=== PATIENT | female | born 1990 | race Caucasian/White ===

== ENCOUNTER 2017-10-24 21:57 | Emergency (ER) | payer MEDICARE, SELFPAY ==
[2017-10-24 21:58] VITALS: BP 109/57; PULSE 61; RESP 18; TEMP 37.1; O2SAT 100; BMI 27.1
--- NOTE | 2017-10-24 22:20 | ED.DCSUM_ITS ---
- ER Visit Summary Date of Service: 10/24/17 Chief Complaint: Rash History of Present Illness: The patient is a [address] Preston. She reports that she suffered multiple dust mite bites to her legs bilaterally. 1 week ago she scratched open one on the medial side of her left ankle. She reports that she has redness that began 3-4 days ago. She states that she has an aching pain is 10 out of 10 with touching it and 8 out of 10 after ibuprofen. She denies any paresthesias distally. No fever, chills, or vomiting. Physical Examination: Vitals: Stable. Afebrile. General: Well-nourished and well-developed. Head: Normocephalic atraumatic. Neck: Supple, no lymphadenopathy. No JVD. Nontender. Cardiovascular: Regular rate and rhythm. No murmurs. Respiratory: No respiratory distress. Clear to auscultation bilaterally. Abdominal: Soft, nontender, nondistended, normal bowel sounds. No guarding, rebound, or peritoneal signs. Back: Nontender. Extremities: Multiple insect bites to the anterior surface of her thighs and legs bilaterally. She has no interdigital lesions. No burrows to suggest scabies. She does have a 3 cm erythematous/indurated area to the medial side of her left ankle just proximal to the medial malleolus. There is no fluctuance., no edema. Skin: Normal color, no rash. Neurologic: Alert and oriented ?3. Cranial nerves II through XII are intact. Normal strength and sensation. Psych: Normal affect. Emergency Department Course and Treatment: I discussed the patient treatment options. If at all possible she would like to avoid an I&D. I do not appreciate any fluctuance. She was given doxycycline, Zofran, and ibuprofen here. Treatment Plan: Patient will be discharged with doxycycline, Zofran, instructed to use ibuprofen for pain. She does understand that this is not improving in 2 days that she will require an I&D. She is instructed to use warm compresses. Follow-up with Dr. Penn in 3-5 days if not improving. Return to the emergency department for any worsening symptoms. Disposition: To home in improved and stable condition. Impression: 1. Early abscess left ankle. This note was generated with [employer] software. It may contain incorrect words, spelling, and punctuation that were not noted in review of the chart prior to signing ED Disposition - Plan for ED Patient: Disposition: Home or Assisted Living Chief Complaint: Abscess Instructions: ED Staph Infec Abx Tx Only Prescriptions: Ondansetron [Zofran Odt] 4 mg PO Q8H PRN PRN #10 tablet PRN Reason: Nausea Doxycycline Monohydrate 100 mg PO BID #20 capsule Mupirocin Calcium [Bactroban] 30 gm TP 4X/DAY #1 tube Referrals: Kal Penn DPM [STAFF PHYSICIAN] - 3-5 Days if not improving
[2017-10-24] MEDS: Doxycycline 100 MG CAPSULE PO (22:25)
[2017-10-24] MEDS: Ibuprofen 600 MG Tablet PO (22:25)
[2017-10-24] MEDS: Azithromycin 250 MG Tablet 500 MG PO (22:25)
[2017-10-24 22:27] VITALS: RESP 16
--- NOTE | 2017-10-24 22:27 | ED.RN ---
REVIEWED D/C INSTRUCTIONS, FOLLOW UP CARE, PRESCRIPTIONS, AND S/S THAT WOULD WARRANT A RETURN TO THE ED WITH PT. PT VERBALIZED AN UNDERSTANDING AND DENIES FURTHER QUESTIONS FOR THIS RN. PT SKIN P/W/D, RESP EVEN AND UNLABORED, PT A&O X 3, NO DISTRESS NOTED. PT AMBULATED OUT OF ED, GAIT STEADY.
== END 2017-10-24 22:28 | disposition home or self-care (01) ==
LOC: ED 22:19
PROVIDERS: Emergency Provider Emergency Medicine; Family Provider Internal Medicine; PCP Internal Medicine
DX: L02.416 Cutaneous abscess of left lower limb (principal); Z90.89 Acquired absence of other organs; F17.200 Nicotine dependence, unspecified, uncomplicated
CPT/HCPCS: 99283

== ENCOUNTER 2017-10-26 20:28 | Emergency (ER) | payer MEDICARE, SELFPAY ==
[2017-10-26 20:29] VITALS: BP 118/68; PULSE 79; RESP 16; TEMP 36.4; O2SAT 98; BMI 27.1
--- NOTE | 2017-10-26 22:26 | ED.DCSUM_ITS ---
- ER Visit Summary Date of Service: 10/26/17 Chief Complaint: Left leg infection History of Present Illness: The patient is a 26 F who presents with a left leg infection. She initially noticed a red raised area about 1 week ago. She was recently seen in the emergency department and started on doxycycline. She states it is continue to worsen despite oral antibiotics and that she is also having nausea and vomiting related to the antibiotics and is unable to tolerate them. She stated she was just here to get a prescription for different antibiotic. She denies fevers. She states that she attempted incision and drainage herself and did get some purulent drainage from the wound. Physical Examination: Afebrile vitals are normal Moist mucous membranes Heart regular rate and rhythm Lungs are clear Abdomen soft There is an ulcerative necrotic wound over the medial left ankle there is no active drainage at this time she has erythema and cellulitis of the dorsum of the foot extending senior care to the knee proximally there is also lymphangitic streaking this is warm to the touch I do not appreciate any fluctuance currently Test Results: Refused Emergency Department Course and Treatment: I explained that given the extent of the patient's cellulitis, failure of outpatient treatment, lymphangitic streaking I would recommend laboratory workup IV antibiotics and hospitalization. The patient refuses all of this. She refused even an IV or lab work or single dose of IV antibiotics here. I discussed with her risks and benefits including risks of developing sepsis organ failure or risk of . I discussed risks of worsening of infection or development of process such as osteomyelitis and need for surgery. The patient refuses any treatment except changing her current oral antibiotics. She understands she is welcome to return at any point for reevaluation and I encouraged her to do so if she does not improve. She will be switched to Keflex and Bactrim. The patient was discharged AGAINST MEDICAL ADVICE. Family member is at bedside and also tried to convince her to stay but the patient continues to refuse. Treatment Plan: [] Disposition: Left AGAINST MEDICAL ADVICE Impression: Left ankle wound Cellulitis This note was generated with [employer] dictation software. It may contain incorrect words, spelling, and punctuation that were not noted in review of the chart prior to signing ED Disposition - Plan for ED Patient: Chief Complaint: Wound Check Referrals: Contreras Preston MD [Primary Care Provider] -
--- NOTE | 2017-10-26 22:26 | ED.DEP ---
ED Disposition - Plan for ED Patient: Chief Complaint: Wound Check Instructions: ED Infec Skin Cellulitis Prescriptions: Clindamycin [Cleocin] 300 mg PO 4X/DAY #80 cap Referrals: Contreras Preston MD [Primary Care Provider] -
[2017-10-26] MEDS: Clindamycin HCl 150 MG Capsule 300 MG PO (22:42)
--- NOTE | 2017-10-26 22:45 | ED.RN ---
DISCHARGE INSTRUCTIONS GIVEN TO AND REVIEWED WITH PATIENT, PATIENT DENIES QUESTIONS OR CONCERNS AND VOICES UNDERSTANDING OF DISCHARGE INSTRUCTIONS. PT AMBULATES OUT OF ROOM WITHOUT DIFFICULTY.
== END 2017-10-26 22:46 | disposition home or self-care (01) ==
PROVIDERS: Emergency Provider Emergency Medicine; Family Provider Internal Medicine; PCP Internal Medicine
DX: L97.328 Non-pressure chronic ulcer of left ankle with other specified severity (principal); L03.116 Cellulitis of left lower limb; Z53.21 Procedure and treatment not carried out due to patient leaving prior to being seen by health care provider; F41.9 Anxiety disorder, unspecified; F32.9 Major depressive disorder, single episode, unspecified; Z90.89 Acquired absence of other organs; Z79.899 Other long term (current) drug therapy; Z72.0 Tobacco use
CPT/HCPCS: 99283

== ENCOUNTER 2017-11-25 16:29 | Emergency (ER) | payer MEDICARE, SELFPAY ==
[2017-11-25 16:30] VITALS: BP 149/107; PULSE 70; RESP 16; TEMP 36.7; O2SAT 94; BMI 26.2
--- NOTE | 2017-11-25 17:17 | ED.DCSUM_ITS ---
- ER Visit Summary Date of Service: 11/25/17 Chief Complaint: Right leg pain and swelling History of Present Illness: The patient is a 27 F who has had right leg pain and some redness in the calf. She states it started yesterday. She states that started in the calf area and she noted some redness near a varicose vein. It extended up into the medial thigh. She has not had a fever. No history of DVT or PE. She does take medications for depression and seizures Physical Examination: Vital signs reviewed. Right leg reveals tenderness medial calf and thigh. Mild erythema noted at these areas. No swelling. Pulses and sensation are intact distally. Test Results: Preliminary results of the ultrasound of the right lower extremity reveals clot in the gastroc aching in the right saphenous vein. Emergency Department Course and Treatment: Due to the multiplicity of the clots I will treat her with Xarelto. She does tell me that her dad gets blood clots frequently so this could be a genetic disorder. She will need to follow-up with Dr. Preston. I will attempt to contact him to let him know the plan of care. Treatment Plan: [] Disposition: Discharge Impression: Right lower extremity DVT This note was generated with [employer] dictation software. It may contain incorrect words, spelling, and punctuation that were not noted in review of the chart prior to signing ED Disposition - Plan for ED Patient: Chief Complaint: Lower Extremity Injury Referrals: Contreras Preston MD [Primary Care Provider] -
--- NOTE | 2017-11-25 17:30 | US_ITS ---
STUDY: VENOUS DOPPLER ULTRASOUND - BILATERAL LOWER EXTREMITIES REASON FOR EXAM: Female, 27 years old. Pain and swelling, particularly lower right thigh and knee.. TECHNIQUE: Ultrasound evaluation of the deep vein system to include giron-scale imaging and compression was performed. Giron-scale imaging and Doppler sonographic evaluation, including duplex spectral analysis and qualitative color flow sonography, was performed. COMPARISON: None. FINDINGS: RIGHT LEG Common Femoral Vein: Normal compression, spontaneity and augmentation. Normal color Doppler. Common Femoral Vein/Greater Saphenous Junction: Normal compression. Greater Saphenous Vein: There is internal echogenicity consistent with thrombus and incomplete compression at the lower thigh. Deep Femoral Vein: Not sampled. Femoral Proximal: Normal compression. Femoral Middle: Normal compression, spontaneity and augmentation. Normal color Doppler. Femoral Distal: Normal compression. Popliteal Vein: Normal compression, spontaneity and augmentation. Normal color Doppler. Tibioperoneal trunk: Normal compression. Peroneal Vein: Normal compression. Gastrocnemius Vein: There is internal echogenicity consistent with thrombus and incomplete compression. LEFT LEG Common Femoral Vein: Normal compression, spontaneity and augmentation. Normal color Doppler. Common Femoral Vein/Greater Saphenous Junction: Normal compression, spontaneity and augmentation. Normal color Doppler. Deep Femoral Vein: Not sampled. Femoral Proximal: Normal compression. Femoral Middle: Normal compression, spontaneity and augmentation. Normal color Doppler. Femoral Distal: Normal compression. Popliteal Vein: Normal compression, spontaneity and augmentation. Normal color Doppler. Posterior Tibial Vein: Grossly normal compression. Peroneal Vein: Normal compression. US/Venous Duplex Imag/Ayan Extrem IMPRESSION: 1. No demonstrated DVT of the bilateral lower extremities. 2. There is thrombus in the right greater saphenous vein at the lower thigh as well as in the superficial gastrocnemius vein of the right calf. Electronically Signed: Gabe Zabala MD at 18:41 EDT , Service support ,
[2017-11-25 18:25] VITALS: BP 121/82; PULSE 58; RESP 16; O2SAT 98
[2017-11-25] MEDS: Ibuprofen 600 MG Tablet PO (18:25)
--- NOTE | 2017-11-25 18:30 | ED.DEP ---
ED Disposition - Plan for ED Patient: Disposition: Home or Assisted Living Chief Complaint: Lower Extremity Injury Instructions: ED DVT Prescriptions: Rivaroxaban [Xarelto] 15 mg PO BID #42 tab Referrals: Contreras Preston MD [Primary Care Provider] -
[2017-11-25] MEDS: Rivaroxaban 15 MG Tablet PO (18:41)
== END 2017-11-25 18:45 | disposition home or self-care (01) ==
PROVIDERS: Emergency Provider Emergency Medicine; Family Provider Internal Medicine; PCP Internal Medicine
DX: I82.4Z1 Acute embolism and thrombosis of unspecified deep veins of right distal lower extremity (principal); F32.9 Major depressive disorder, single episode, unspecified; G40.909 Epilepsy, unspecified, not intractable, without status epilepticus; Z79.899 Other long term (current) drug therapy; Z72.0 Tobacco use
CPT/HCPCS: 93970; 99282

== ENCOUNTER 2017-11-26 00:02 | Emergency (ER) | payer MEDICARE, SELFPAY ==
[2017-11-26 00:03] VITALS: BP 97/64; PULSE 61; RESP 18; TEMP 36.6; O2SAT 96; BMI 27.5
--- NOTE | 2017-11-26 00:15 | EKG12_ITS ---
Test Reason : CP Blood Pressure : / mmHG Vent. Rate : 054 BPM Atrial Rate : 054 BPM P-R Int : 124 ms QRS Dur : 088 ms QT Int : 418 ms P-R-T Axes : 066 053 037 degrees QTc Int : 396 ms Sinus bradycardia Otherwise normal ECG Confirmed by KATIA WILL, GAUTAM ([id number]), newspaper photo editor DOMINIQUE BEAVER ([id number]) on 11/28/2017 2:02:36 PM Referred By: ELENITA Confirmed By:GAUTAM MONTALVO MD
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
--- NOTE | 2017-11-26 00:59 | RAD_ITS ---
STUDY: X-RAY CHEST REASON FOR EXAM: Female, 27 years old. Intermittent chest pain. Patient states that she was diagnosed with DVTs in the legs on November 25 TECHNIQUE: Frontal and lateral views of the chest. COMPARISON: Venous ultrasound 11/25/2017. (Ultrasound study demonstrates SVT of the right greater saphenous vein and gastrocnemius vein, but no DVT). FINDINGS: The lungs are clear and expanded. There is no demonstrated pleural abnormality. Normal size heart. Normal mediastinum and froilan. Normal visualized pulmonary arteries. Normal visualized aortic arch and descending thoracic aorta. Normal visualized thoracic spine. Normal visualized ribs, clavicles, and shoulders. There is no demonstrated abnormality of the visualized soft tissue structures of the upper abdomen. RAD/Chest PA and Lateral IMPRESSION: Normal x-ray examination of the chest. Electronically Signed: Segun Quezada MD at 1:32 EDT , Service support ,
--- NOTE | 2017-11-26 01:31 | ED.DEP ---
ED Disposition - Plan for ED Patient: Disposition: Home or Assisted Living Chief Complaint: Chest Pain Instructions: ED Chest Pain Atypical Unkn Cause Referrals: Contreras Preston MD [Primary Care Provider] - 1 Week Additional Instructions: Continue on your Xarelto. Call and follow-up with your primary care physician. Return if you are feeling a lot worse.
[2017-11-26 01:40] VITALS: BP 136/87; PULSE 86; RESP 16; O2SAT 98
== END 2017-11-26 01:41 | disposition home or self-care (01) ==
PROVIDERS: Emergency Provider Emergency Medicine; Family Provider Internal Medicine; PCP Internal Medicine
DX: R07.89 Other chest pain (principal); R00.1 Bradycardia, unspecified; I82.409 Acute embolism and thrombosis of unspecified deep veins of unspecified lower extremity; Z87.820 Personal history of traumatic brain injury; Z72.0 Tobacco use; G40.909 Epilepsy, unspecified, not intractable, without status epilepticus; Z79.899 Other long term (current) drug therapy; G83.89 Other specified paralytic syndromes
CPT/HCPCS: 71046; 93005; 99283; A4216

== ENCOUNTER 2017-12-19 20:11 | Emergency (ER) | payer MEDICARE, SELFPAY ==
[2017-12-19 20:12] VITALS: BP 132/107; PULSE 101; RESP 18; TEMP 37.2; O2SAT 99; BMI 28.3
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
--- NOTE | 2017-12-19 20:29 | ED.DEP ---
ED Disposition - Plan for ED Patient: Chief Complaint: General Illness Instructions: ED Fever Unconf Cause Referrals: Contreras Preston MD [Primary Care Provider] -
[2017-12-19 20:37] VITALS: RESP 18
== END 2017-12-19 20:38 | disposition home or self-care (01) ==
PROVIDERS: Emergency Provider Emergency Medicine; Family Provider Internal Medicine; PCP Internal Medicine
DX: R50.9 Fever, unspecified (principal); G83.24 Monoplegia of upper limb affecting left nondominant side
CPT/HCPCS: 99282

== ENCOUNTER 2018-02-04 19:15 | Emergency (ER) | payer MEDICARE, SELFPAY ==
[2018-02-04 19:16] VITALS: BP 98/65; PULSE 73; RESP 16; TEMP 36.6; O2SAT 99; BMI 24.5
--- NOTE | 2018-02-04 20:50 | ED.VISSUMM ---
- ER Visit Summary Date of Service: 02/04/18 Chief Complaint: Abscesses on left leg History of Present Illness: The patient is a 27 F who has multiple abscesses on the left leg. Started 2 days ago. One has drained. Another one has gotten bigger over the past day. She was seen at an urgent care and was told to come here for drainage. She does not want them to be drained at this time. She denies any fevers. She just wants to be on antibiotics that she had at the beginning of summer. Physical Examination: Signs are reviewed. Skin exam reveals multiple fluctuant abscesses on the left lower extremity. Each measure about 2 x 2 cm. They are erythematous. No current active drainage. Test Results: None performed Emergency Department Course and Treatment: Again, patient refuses incision and drainage. She wants to be placed on antibiotics. And september she was placed on Bactrim and this helped. I will put her on this again. She will follow-up with her PCP Treatment Plan: [] Disposition: Discharge Impression: Multiple left leg abscesses This note was generated with [employer] dictation software. It may contain incorrect words, spelling, and punctuation that were not noted in review of the chart prior to signing ED Disposition - Plan for ED Patient: Disposition: Home or Assisted Living Chief Complaint: Abscess Instructions: ED Infec Skin Cellulitis Prescriptions: Doxycycline Monohydrate 100 mg PO BID #20 cap Referrals: Contreras Preston MD [Primary Care Provider] -
[2018-02-04 20:57] VITALS: PULSE 88; RESP 16; O2SAT 98
[2018-02-04] MEDS: Doxycycline 100 MG CAPSULE PO (21:01)
== END 2018-02-04 21:02 | disposition home or self-care (01) ==
PROVIDERS: Emergency Provider Emergency Medicine; Family Provider Internal Medicine; PCP Internal Medicine
DX: L02.416 Cutaneous abscess of left lower limb (principal)
CPT/HCPCS: 99283

== ENCOUNTER 2018-02-23 21:53 | Emergency (ER) | payer MEDICARE, SELFPAY ==
[2018-02-23 21:55] VITALS: BP 120/67; PULSE 89; RESP 18; TEMP 37.6; O2SAT 99; BMI 27.8
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
[2018-02-23] MEDS: clonazePAM 1 MG Tablet PO ×2 (22:51→23:50)
--- NOTE | 2018-02-23 23:14 | ED.VISSUMM ---
- ER Visit Summary Date of Service: 02/23/18 Chief Complaint: Seizure History of Present Illness: The patient is a 27 F with history of seizure disorder. She had a seizure proxy 1 hour prior to arrival. She is currently 14 weeks . She is normally on Klonopin for her seizures as she states she is allergic to multiple different antiepileptics. She been out of her Klonopin for the past 3 days. She is an appointment 2 days with her doctor to get this refilled. On review of her medication list, it is noted that she is currently taking Xarelto for DVTs. When questioned patient states that she did not tell her MEDICAL SERVICE TECHNICIAN about this medication at her appointment. Physical Examination: Vital signs unremarkable. Patient sitting upright in bed no acute distress. Head neck examination normal. Heart is regular rate and rhythm. Lung sounds are clear. Abdomen is soft, gravid. Neuro exam reveals no focal deficits. Test Results: CT head is unremarkable. Emergency Department Course and Treatment: Nursing staff attempted to get heart tones but were unable. I did do a bedside ultrasound that reveals good cardiac motion. I spoke with Dr. Eugene as well, on-call for Dr. Ortez. Because the patient is a very through the first trimester which is the most important, she is stated patient could continue the Xarelto. She will review the case with Dr. Ortez tomorrow and the office will call the patient tomorrow with further instructions regarding her blood thinner. Patient be given a home pack of Klonopin which will supply her until her appointment in 2 days. Treatment Plan: [] Disposition: Discharge Impression: 1. Seizure with history of seizure disorder 2. Second trimester This note was generated with [employer] dictation software. It may contain incorrect words, spelling, and punctuation that were not noted in review of the chart prior to signing ED Disposition - Plan for ED Patient: Chief Complaint: Seizure Referrals: Contreras Preston MD [Primary Care Provider] -
--- NOTE | 2018-02-23 23:17 | ED.DCSUM_ITS ---
- ER Visit Summary Date of Service: 02/23/18 Chief Complaint: Seizure History of Present Illness: The patient is a 27 F with history of seizure disorder. She had a seizure proxy 1 hour prior to arrival. She is currently 14 weeks . She is normally on Klonopin for her seizures as she states she is allergic to multiple different antiepileptics. She been out of her Klonopin for the past 3 days. She is an appointment 2 days with her doctor to get this refilled. On review of her medication list, it is noted that she is currently taking Xarelto for DVTs. When questioned patient states that she did not tell her SOUP PERSON about this medication at her appointment. Physical Examination: Vital signs unremarkable. Patient sitting upright in bed no acute distress. Head neck examination normal. Heart is regular rate and rhythm. Lung sounds are clear. Abdomen is soft, gravid. Neuro exam reveals no focal deficits. Test Results: CT head is unremarkable. Emergency Department Course and Treatment: Nursing staff attempted to get heart tones but were unable. I did do a bedside ultrasound that reveals good cardiac motion. I spoke with Dr. Eugene as well, on-call for Dr. Ortez. Because the patient is a very through the first trimester which is the most important, she is stated patient could continue the Xarelto. She will review the case with Dr. Ortez tomorrow and the office will call the patient tomorrow with further instructions regarding her blood thinner. Patient be given a home pack of Klonopin which will supply her until her appointment in 2 days. Treatment Plan: [] Disposition: Discharge Impression: 1. Seizure with history of seizure disorder 2. Second trimester This note was generated with [employer] dictation software. It may contain incorrect words, spelling, and punctuation that were not noted in review of the chart prior to signing ED Disposition - Plan for ED Patient: Chief Complaint: Seizure Referrals: Cotnreras Preston MD [Primary Care Provider] -
--- NOTE | 2018-02-23 23:17 | ED.DEP ---
ED Disposition - Plan for ED Patient: Disposition: Home or Assisted Living Chief Complaint: Seizure Instructions: ED Seizure Recurrent Referrals: Kayla Ortez MD [STAFF PHYSICIAN] -
[2018-02-23 23:53] VITALS: BP 117/59; PULSE 85; RESP 15; O2SAT 99
== END 2018-02-23 23:55 | disposition home or self-care (01) ==
PROVIDERS: Emergency Provider Emergency Medicine; Family Provider Internal Medicine; PCP Internal Medicine
DX: O99.352 Diseases of the nervous system complicating pregnancy, second trimester (principal); G40.909 Epilepsy, unspecified, not intractable, without status epilepticus; O99.342 Other mental disorders complicating pregnancy, second trimester; F25.9 Schizoaffective disorder, unspecified; F41.9 Anxiety disorder, unspecified; F32.9 Major depressive disorder, single episode, unspecified; Z86.718 Personal history of other venous thrombosis and embolism; O99.332 Smoking (tobacco) complicating pregnancy, second trimester; F17.200 Nicotine dependence, unspecified, uncomplicated; Z3A.14 14 weeks gestation of pregnancy; Z79.01 Long term (current) use of anticoagulants; Z79.899 Other long term (current) drug therapy
CPT/HCPCS: 70450; 99283

== ENCOUNTER 2018-05-22 17:40 | Outpatient (CLI) | payer MEDICARE, SELFPAY ==
[2018-05-22 18:20] VITALS: BMI 28.3
[2018-05-22 20:08] LABS: Absolute Lymphocyte Count 1.91 X10^3/ul (0.83-4.51); Absolute Neutrophil Count 6.1 X10^3/uL (2.0-7.7); Basophil# 0.02 X10^3/uL; Basophil% 0.2 % (0-1); Eosinophil# 0.23 X10^3/uL; Eosinophils% 2.5 % (0-5); Hematocrit 30.1 % (37-47); Hemoglobin 10.3 g/dl (12.0-15.0); Lymphocyte # 1.91 X10^3/ul (4.0); Mean Corp Hgb Conc 34.2 g/gl (32-36); Mean Corpuscular Hgb 31.3 pg (27.0-32.0); Mean Corpuscular Volume 91.5 fL (81-99); Monocyte# 0.86 X10^3/uL; Monocyte% 9.5 % (0-10); Neutrophil # 6.06 X10^3/uL (2.7-7.7); Neutrophil % 66.7 % (47-70); Platelet Count 199 K/mm3 (150-450); RBC Distribution Width CV 14.6 % (11.6-14.6); RBC Distribution Width SD 48.4 fl (35.1-43.9); Red Blood Count 3.29 M/mm3 (4.2-5.4); White Blood Count 9.1 K/mm3 (4.4-11.0)
[2018-05-22 20:09] LABS: POSITIVE COUNT NO; POSITIVE DIFFERENTIAL NO; POSITIVE MORPHOLOGY NO
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
[2018-05-22 22:11] LABS: Rubella IgG 113.7 IU/mL
[2018-05-23 03:23] LABS: Rapid Plasmin Reagin (RPR) NONREACTIVE (NONREACTIVE)
[2018-05-23 11:54] LABS: Kleihauer-Betke Negative
[2018-05-25 13:41] LABS: HEPATITIS B SURFACE AG Negative (Negative); Hep C Antibodies <0.1 s/co ratio (0.0-0.9)
== END 2018-05-22 20:00 | disposition home or self-care (01) ==
LOC: WPOUT 17:57 → WP 17:57
PROVIDERS: Family Provider Internal Medicine; PCP Internal Medicine; Referring Provider Obstetrics & Gynecology; Visit Provider Obstetrics & Gynecology
DX: O9A.212 Injury, poisoning and certain other consequences of external causes complicating pregnancy, second trimester (principal); S50.00XA Contusion of unspecified elbow, initial encounter; S50.319A Abrasion of unspecified elbow, initial encounter; Z3A.25 25 weeks gestation of pregnancy; W10.9XXA Fall (on) (from) unspecified stairs and steps, initial encounter; Y93.9 Activity, unspecified; Y92.9 Unspecified place or not applicable; O09.92 Supervision of high risk pregnancy, unspecified, second trimester; O99.342 Other mental disorders complicating pregnancy, second trimester; F99 Mental disorder, not otherwise specified; Z87.820 Personal history of traumatic brain injury; Z86.718 Personal history of other venous thrombosis and embolism; Z87.898 Personal history of other specified conditions; Z79.899 Other long term (current) drug therapy
CPT/HCPCS: 36415; 59025; 59050; 85025; 85460; 86592; 86762; 86803; 86850; 86900; 87340; 99218; G0378

== ENCOUNTER → 2018-07-08 15:20 | Outpatient (CLI) | payer MEDICARE, SELFPAY ==
[2018-07-08 16:33] LABS: Hematocrit 27.9 % (37-47); Hemoglobin 9.2 g/dl (12.0-15.0); Mean Corpuscular Hgb 30.2 pg (27.0-32.0); Mean Corpuscular Volume 91.5 fL (81-99); Mean Platelet Vol. 10.2 fl (6.2-12.0); Platelet Count 197 K/mm3 (150-450); RBC Distribution Width CV 13.7 % (11.6-14.6); Red Blood Count 3.05 M/mm3 (4.2-5.4); White Blood Count 9.6 K/mm3 (4.4-11.0)
[2018-07-08 16:36] LABS: Scan Indicated on CBC? Y/N NO
[2018-07-08 16:59] LABS: Glucose Challenge Gest 1H 50g 79 mg/dL (70-140)
== END ==
PROVIDERS: Family Provider Internal Medicine; PCP Internal Medicine; Referring Provider Obstetrics & Gynecology; Visit Provider Obstetrics & Gynecology
DX: O34.219 Maternal care for unspecified type scar from previous cesarean delivery (principal); Z3A.00 Weeks of gestation of pregnancy not specified
CPT/HCPCS: 36415; 82950; 85027; 86850

== ENCOUNTER 2018-10-03 21:24 | Emergency (ER) | payer MEDICARE, SELFPAY ==
[2018-10-03 21:25] VITALS: BP 114/75; PULSE 95; RESP 16; TEMP 36.8; O2SAT 98; BMI 28.6
--- NOTE | 2018-10-03 22:38 | ED.DCSUM_ITS ---
- ER Visit Summary Date of Service: 10/03/18 Chief Complaint: Bilateral leg redness and swelling History of Present Illness: The patient is a 27 F who presents with abscesses on both legs. This is been present for about 5 days. She has a history of similar symptoms. She states normally she responds well to antibiotics. She has seen infectious disease for the symptoms without clear explanation of why she has had recurrent abscesses. She denies any systemic symptoms. No fevers chest pain shortness of breath nausea vomiting diarrhea. Physical Examination: Afebrile vitals are normal No distress Heart regular rate and rhythm No respiratory distress Patient has multiple early abscesses of the bilateral legs there are at least 4 lesions of the right leg about 1 cm in diameter with induration and overlying erythema these are not fluctuant There is a 2 cm open wound over the left anterior lower leg there is a 1 cm area of induration at the left popliteal fossa with about 4 to 5 cm of erythema consistent with cellulitis around this she has good short arc range of motion of the knees without pain Test Results: Not indicated Emergency Department Course and Treatment: Patient does not appear systemically ill and denies any systemic illness. She states she has responded well previously with a similar presentation just to oral antibiotics. She was given clindamycin here as well as prescription for the same but I stressed the importance of return for reevaluation for any new or worsening symptoms or if not improving within a couple of days of antibiotics. Patient agreeable to this plan was discharged home. Treatment Plan: [] Disposition: Discharge Impression: Multiple bilateral leg abscesses Cellulitis right leg This note was generated with [employer] dictation software. It may contain incorrect words, spelling, and punctuation that were not noted in review of the chart prior to signing ED Disposition - Plan for ED Patient: Referrals: Contreras Preston MD [Primary Care Provider] -
--- NOTE | 2018-10-03 22:38 | ED.DEP ---
ED Disposition - Plan for ED Patient: Instructions: ED Infec Skin Cellulitis, ED Staph Infec Abx Tx Only Prescriptions: Clindamycin [Cleocin] 300 mg PO TID #60 cap Referrals: Contreras Preston MD [Primary Care Provider] -
[2018-10-03] MEDS: Clindamycin HCl 150 MG Capsule 300 MG PO (23:08)
[2018-10-03 23:11] VITALS: BP 121/86; PULSE 88; O2SAT 95
== END 2018-10-03 23:18 | disposition home or self-care (01) ==
LOC: ED 22:41
PROVIDERS: Emergency Provider Emergency Medicine; Family Provider Internal Medicine; PCP Internal Medicine
DX: L02.416 Cutaneous abscess of left lower limb (principal); L02.415 Cutaneous abscess of right lower limb; L03.115 Cellulitis of right lower limb; S81.802A Unspecified open wound, left lower leg, initial encounter; X58.XXXA Exposure to other specified factors, initial encounter; Y93.9 Activity, unspecified; Y92.9 Unspecified place or not applicable; E66.9 Obesity, unspecified; F32.9 Major depressive disorder, single episode, unspecified; Z86.718 Personal history of other venous thrombosis and embolism; Z79.899 Other long term (current) drug therapy; Z72.0 Tobacco use
CPT/HCPCS: 99283

== ENCOUNTER 2018-10-05 20:11 | Emergency (ER) | payer MEDICARE, SELFPAY ==
[2018-10-05 20:15] VITALS: BP 109/65; PULSE 86; RESP 16; TEMP 36.4; O2SAT 96; BMI 28.5
--- NOTE | 2018-10-05 20:38 | ED.DCSUM_ITS ---
- ER Visit Summary Date of Service: 10/05/18 Chief Complaint: Bilateral leg abscesses History of Present Illness: The patient is a 27 F who tells me she has abscesses on the bilateral legs. She is here because she wants one area checked out. She was seen here 2 days ago and was given clindamycin. She denies any fevers. These areas have been draining. She has not been putting any creams on this area. Physical Examination: Vital signs reviewed. Bilateral legs reveal multiple ab scesses with cellulitic changes. She does have drainage coming from the left popliteal area. No areas need to be incised at this time. Test Results: None performed Emergency Department Course and Treatment: The patient's dressings were changed. No areas need to be drained at this time. They are already draining themselves. She was concerned about them eroding into her nerves and blood vessels. I do not see any evidence of this. I will give her Tylenol for pain. I will give her Bactroban cream that she can use. She will finish out her clindamycin and will follow up with her infectious disease doctor Treatment Plan: [] Disposition: Discharge Impression: Bilateral leg cellulitis, subsequent encounter This note was generated with [employer] dictation software. It may contain incorrect words, spelling, and punctuation that were not noted in review of the chart prior to signing ED Disposition - Plan for ED Patient: Referrals: Contreras Preston MD [Primary Care Provider] -
--- NOTE | 2018-10-05 20:38 | ED.DEP ---
ED Disposition - Plan for ED Patient: Disposition: Home or Assisted Living Instructions: Discharge Instructions for Cellulitis Prescriptions: Mupirocin [Bactroban] 1 applic TOPICAL TID #1 tube Referrals: Contreras Preston MD [Primary Care Provider] -
[2018-10-05 20:42] VITALS: RESP 18
[2018-10-05] MEDS: Acetaminophen 500 MG Tablet 1000 MG PO (20:47)
== END 2018-10-05 20:48 | disposition home or self-care (01) ==
PROVIDERS: Emergency Provider Emergency Medicine; Family Provider Internal Medicine; PCP Internal Medicine
DX: L03.115 Cellulitis of right lower limb (principal); L03.116 Cellulitis of left lower limb; L02.416 Cutaneous abscess of left lower limb; L02.415 Cutaneous abscess of right lower limb; Z86.718 Personal history of other venous thrombosis and embolism; Z79.01 Long term (current) use of anticoagulants; Z72.0 Tobacco use
CPT/HCPCS: 99283

== ENCOUNTER 2018-10-09 21:57 | Inpatient (IN) | payer MEDICARE, SELFPAY ==
[2018-10-09 21:58] VITALS: BP 141/90; PULSE 87; RESP 16; TEMP 36.2; O2SAT 100; BMI 27.9
--- NOTE | 2018-10-09 23:11 | ED.DCSUM_ITS ---
- ER Visit Summary Date of Service: 10/09/18 Chief Complaint: Bilateral leg redness and swelling and pain History of Present Illness: The patient is a 27 F who presents with bilateral leg redness and pain. She has a history of chronic recurrent abscesses and cellulitis. She has seen infectious disease for this previously. I recently saw her for similar presentation and started on clindamycin. Her symptoms have not improved and have been fact worsened. She had some areas that opened up and spontaneously drained. She was then seen again in the emergency department for the open wounds. She now has developed increasing redness and swelling. No systemic symptoms such as fevers or vomiting. She is not diabetic. Physical Examination: Afebrile vitals unremarkable Moist mucous membranes Heart regular rate and rhythm Lungs clear Patient has edema of the bilateral lower extremities right greater than left she does have bilateral lower extremity cellulitis, right greater than left, there are multiple superficial abscesses as well as open wounds over the anterior left leg and on the left leg in the popliteal fossa Test Results: CBC BMP notable for hemoglobin 10.0. Emergency Department Course and Treatment: Patient was treated with IV Ancef and vancomycin. This is the patient's third visit with progressing symptoms so I do feel she requires hospitalization for IV antibiotics. Treatment Plan: [] Disposition: Admit Impression: Bilateral leg cellulitis This note was generated with [employer] dictation software. It may contain incorrect words, spelling, and punctuation that were not noted in review of the chart prior to signing ED Disposition - Plan for ED Patient: Referrals: Contreras Preston MD [Primary Care Provider] -
[2018-10-09] MEDS: Cefazolin 1 GM/50 ML BAG IV (23:47)
[2018-10-09 23:56] LABS: Absolute Lymphocyte Count 1.74 X10^3/ul (0.83-4.51); Basophil# 0.01 X10^3/uL; Basophil% 0.1 % (0-1); Eosinophil# 0.16 X10^3/uL; Eosinophils% 2.4 % (0-5); Hematocrit 31.1 % (37-47); Lymphocyte # 1.74 X10^3/ul (4.0); Lymphocyte % 25.7 % (19-41); Mean Corp Hgb Conc 32.2 g/gl (32-36); Mean Corpuscular Hgb 27.2 pg (27.0-32.0); Mean Corpuscular Volume 84.7 fL (81-99); Mean Platelet Vol. 8.8 fl (6.2-12.0); Monocyte# 0.82 X10^3/uL; Monocyte% 12.1 % (0-10); Neutrophil # 4.02 X10^3/uL (2.7-7.7); Neutrophil % 59.6 % (47-70); Platelet Count 383 K/mm3 (150-450); RBC Distribution Width CV 15.6 % (11.6-14.6); RBC Distribution Width SD 46.7 fl (35.1-43.9); Red Blood Count 3.67 M/mm3 (4.2-5.4); White Blood Count 6.8 K/mm3 (4.4-11.0)
[2018-10-10 00:03] LABS: Anion Gap 6 (5-15); BUN 5 mg/dL (7-18); BUN/Creat Ratio 8.2 RATIO (10-20); Calcium,Total 8.4 mg/dL (8.5-10.1); Chloride 104 mmol/L (98-107); Creatinine, Serum 0.61 mg/dL (0.55-1.02); EST Glomerular Filtration Rate 126 mL/min (>60); Est Glom Filt Rate - Afr Amer 153 mL/min (>60); Estimated Creatinine Clearance 106.39 ml/min; Glucose 75 mg/dL (74-106); POSITIVE COUNT NO; POSITIVE DIFFERENTIAL NO; POSITIVE MORPHOLOGY NO; Potassium 3.7 mmol/L (3.5-5.1); Sodium Level 139 mmol/L (136-145)
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
[2018-10-10] MEDS: Vancomycin IV 1,000 MG/200 ML BAG 200 MG IV (00:42)
[2018-10-10] MEDS: Ibuprofen 200 MG Tablet 400 MG PO (00:45)
[2018-10-10 00:46] VITALS: BP 137/100; PULSE 88; RESP 14
[2018-10-10 01:24] VITALS: BMI 25.4
[2018-10-10 01:30] VITALS: BP 117/80; PULSE 71; RESP 20; TEMP 36.7; O2SAT 96
[2018-10-10 01:49] VITALS: BMI 25.5
[2018-10-10] MEDS: clonazePAM 1 MG Tablet PO ×3 (02:04→21:56)
[2018-10-10] MEDS: Acetaminophen 325 MG Tablet 650 MG PO ×4 (02:04→23:04)
[2018-10-10] MEDS: Furosemide 40 MG/4 ML Vial IV (02:04)
--- NOTE | 2018-10-10 03:31 | PCM.RX.CS ---
Consult Pharmacy has been consulted to manage selected antiobiotic: Vancomycin Type of Consult: New start Suspected Infection: Skin/Soft tissue Prior Doses of Antibiotics Received/Current Regimen: Medications Vancomycin HCl 750 mg/ Sodium (Chloride) 265 mls @ 250 mls/hr IV Q8H RAMONE Discontinued Medications Vancomycin HCl (Vancomycin) 1,000 mg in 200 mls @ 200 mls/hr IV X1 ONE Stop: 10/10/18 00:19 Last Admin: 10/10/18 00:42 Dose: 200 mls/hr Labs: Sodium 139 mmol/L (136-145) 10/09/18 23:40 Potassium 3.7 mmol/L (3.5-5.1) 10/09/18 23:40 Chloride 104 mmol/L (98-107) 10/09/18 23:40 Carbon Dioxide 29.0 mmol/L (21.0-32.0) 10/09/18 23:40 Anion Gap 6 (5-15) 10/09/18 23:40 BUN 5 mg/dL (7-18) L 10/09/18 23:40 Creatinine 0.61 mg/dL (0.55-1.02) 10/09/18 23:40 Est GFR (MDRD) Af Amer 153 mL/min (>60) 10/09/18 23:40 Est GFR (MDRD) Non-Af 126 mL/min (>60) 10/09/18 23:40 BUN/Creatinine Ratio 8.2 RATIO (10-20) L 10/09/18 23:40 Glucose 75 mg/dL (74-106) 10/09/18 23:40 Weight used for dosin.1 kg Estimated Creatinine Clearance: 106 Goal Trough: 15-20 mcg/mL Pharmacy Plan for Drug Dosing: Pharmacy Service will continue to monitor and adjust dosing as required. Follow-Up Labs: Trough Vancomycin Labs to be done on [date and time ordered]: 10/11/18 @0800
[2018-10-10] MEDS: Cefazolin 1 GM/50 ML BAG IV ×3 (05:54→21:56)
[2018-10-10] MEDS: Ibuprofen 400 MG Tablet PO ×3 (06:00→21:58)
[2018-10-10 07:30] VITALS: BP 116/70; PULSE 70; RESP 18; TEMP 36.6; O2SAT 98
[2018-10-10 08:00] VITALS: RESP 18
[2018-10-10] MEDS: Citalopram 20 MG Tablet 60 MG PO (09:07)
[2018-10-10] MEDS: Enoxaparin 40 MG/0.4 ML Syringe SC (09:08)
[2018-10-10] MEDS: Pantoprazole Sodium 20 MG Tablet PO (10:56)
--- NOTE | 2018-10-10 11:31 | CASEMGMT ---
RN CM Assessment Presentation: Multiple abscesses and cellulitis of bilateral legs. Intro role of CM and purpose of RN CM assessment to patient in room. Pt is awake, alert and able to participate in assessment.. Demographics, PCP and Pharmacy verified. Pt does not elaborate with answers, tends to answer yes no and did not engage in eye contact. PCP: Dr. Preston Preferred Pharmacy: [facility] Insurance: [employer] [facility] Prescription Benefit: yes LNOK: Mother, Ioana Cesar Living Arrangements: Lives independently with significant other, Martin abbott. States completes ADL's on own. Transportation: [facility] friend/family drives or can use [facility] transportation. States she has difficulty with scheduling this. RN CM asked if she would like to speak with regarding transportation or concerns on dc and pt declined. DME: none HHC: none Patient DC goals: Home DC PLAN: Home. Anuja BAIRD RN ACM
--- NOTE | 2018-10-10 13:23 | CASEMGMT ---
Social Work Note SW reviewed H+P, pt has history of TBI and Schizoaffective disorder. SW met with pt, introduced self and role at [facility]. Pt is alert and orientated x4. Pt states that she lives with her significant other and that it is a good relationship and she feels safe at home. Pt denied any Substance Abuse Hx. Pt states that she has a history of depression. Pt denied any current suicidal/homicidal thoughts/plans/ideations. Pt states that she received counseling in the past but denied any current counseling. Pt denied any counseling resources and denied any additional needs or concerns at this time. Irma Farley DIABETES EDUCATOR, HEAD OF ACQUISITIONS
[2018-10-10 15:47] VITALS: BP 114/76; PULSE 73; RESP 18; TEMP 36.3; O2SAT 98
--- NOTE | 2018-10-10 19:09 | PCM.HOSP.N ---
Hospitalist Note Was seen and examined today briefly, we were unable to obtain any labs despite multiple attempts, I feel that her vancomycin should be stopped-it would be difficult to obtain peak and trough levels on this patient. I will maintain the patient on Ancef for now. Wound culture results are pending.
[2018-10-10 20:24] VITALS: BP 127/83; PULSE 75; RESP 14; TEMP 36.7; O2SAT 98
--- NOTE | 2018-10-11 01:01 | NURSING ---
PT CONTINUES TO RATE PAIN 7-10 ON SCALE 0-10 FOR BLE. PT NOTED TO BE AMBULATING IN ROOM, WATCHING TV, TALKING ON CELL PHONE, AND WATCHING VIDEOS ON PHONE WITHOUT DISTRESS. PT INSTRUCTED TO ELEVATE BLE WHILE IN BED. PT VOICED UNDERSTANDING. WILL CONTINUE TO MONITOR.
[2018-10-11] MEDS: Ibuprofen 400 MG Tablet PO ×3 (02:13→21:56)
[2018-10-11 02:15] VITALS: BP 134/85; PULSE 57; RESP 16; TEMP 36.7; O2SAT 98
[2018-10-11] MEDS: Cefazolin 1 GM/50 ML BAG IV ×3 (05:39→21:57)
[2018-10-11] MEDS: Acetaminophen 325 MG Tablet 650 MG PO (07:23)
--- NOTE | 2018-10-11 08:49 | PCM.PROGNOTE ---
Patient Problems: Active and Suspected Problems Abscess (Acute) Cellulitis (Acute) Subjective: Chief complaint: Follow-up after admission for bilateral lower extremity cellulitis, infected wounds/probable superficial skin abscesses. Patient seen and examined. No acute events overnight. She is still complaining of bilateral leg swelling, minimally improved. Erythema of the right leg improved. She has multiple wounds, one on the anterior aspect of the right leg measuring about 1 x 1 cm with pus draining, another wound on the back of the right knee measuring about 1 x 1 cm, minimal drainage. There is another wound on the anterior aspect of the left leg with minimal drainage and other wound on the back of the left leg with pulse as well. She denies fever or chills. Her vital signs are stable. - Physical Exam General: Alert, Oriented x3, Cooperative, No apparent distress HEENT: Atraumatic, PERRLA, EOMI, Normocephalic Oral: Moist Mucosa, No Gingival or Mucosal Lesions/ Ulcerations Neck: Supple, No JVD, Negative Carotid Bruits, Trachea Midline, Thyroid Normal Size and Texture Lungs: Clear to auscultation, Normal air movement, No rhonchi, No wheeze, No rales Cardiovascular: Regular rate, Regular Rhythm, Normal S1, Normal S2, PMI Normal Abdomen: Bowel Sounds Present, Soft, Non Tender, Non-Distended, No Hepato-splenomegaly Extremities: No clubbing, No cyanosis, No edema Skin: No rashes, Ulcer/ Wound Musculoskeletal: - - Right leg: Small wound measuring about 1 x 1 cm on the anterior aspect of the upper one third of the right leg with pus drainage surrounded by mild erythema. Erythema of the right leg, improved. Small wounds on the back of the right knee with minimal drainage. Left leg: Small wounds on the anterior aspect of the left leg with minimal drainage, another open wound on the back of the left knee with pus. Lymphatic: No Cervical, Supraclavicular, or Inguinal Adenopathy Neurological: Cranial nerves II-XII grossly intact, Neuro grossly intact Psych/Mental Status: Normal Affect, Appropriate, Alert and oriented to time, place, person, mood and affect Vital Signs Temp Pulse Resp BP Pulse Ox 98.0 F 57 L 16 134/85 H 98 10/11/18 02:15 10/11/18 02:15 10/11/18 02:15 10/11/18 02:15 10/11/18 02:15 Oxygen Delivery Method Room Air Weight: 134 lb 11.239 oz Body Mass Index (BMI) 25.4 Finger Stick Blood Glucose 86 Intake and Output for Last 24 Hours 10/09/18 10/10/18 10/11/18 23:59 23:59 23:59 Intake Total 2411 / 2411 1223 / 1223 Output Total 3050 / 3050 Balance -639 / -639 1223 / 1223 Microbiology Past 72 Hours 10/10/18 00:00 Gram Stain - Final Wound - Leg, Left Medical Necessity - Tobacco Use Smoking Status: Current every day smoker Tobacco Use: Cigarettes Assessment/Plan All Active Problems Abscess (Acute) Cellulitis (Acute) This is a 27 years old female patient presented to the medicine because of bilateral leg redness and swelling mainly on the right leg as well as multiple wounds and she was found to have acute cellulitis of bilateral legs with multiple infected wounds and small skin abscesses on both legs. #1 acute bilateral lower extremity cellulitis/infected wound/small skin abscesses: She is on IV cefazolin. Vital signs are stable, afebrile. No leukocytosis. Wound cultures pending. Erythema and swelling of both legs is improving but still having pulse coming out from the small wounds on the anterior right leg and left posterior knee. Plan: Continue IV cefazolin, MRSA wound screen, repeat wound culture, start Bactrim, general surgery consult. #2 seizure disorder: She is on Klonopin for seizure according to the patient. Stable. #3 depression: Continue Celexa. #4 history of DVTs: Continue daily subcu Lovenox. #5 DVT prophylaxis: She is on subcu Lovenox. This note was generated with [employer] dictation software. It may contain incorrect words, spelling, and punctuation that were not noted in checking the note before signing. Code Visit Inpatient E&M: 69617 Subs Hosp L2
[2018-10-11 09:00] VITALS: PULSE 70
[2018-10-11 09:33] VITALS: BP 118/64; PULSE 76; RESP 18; TEMP 36.9; O2SAT 95
[2018-10-11] MEDS: Enoxaparin 40 MG/0.4 ML Syringe SC (09:38)
[2018-10-11] MEDS: clonazePAM 1 MG Tablet PO (09:40)
[2018-10-11] MEDS: Pantoprazole Sodium 20 MG Tablet PO (09:40)
[2018-10-11] MEDS: Citalopram 20 MG Tablet 60 MG PO (09:40)
[2018-10-11 09:44] LABS: Anion Gap 8 (5-15); Anisocytosis 1+; BUN 12 mg/dL (7-18); BUN/Creat Ratio 23.3 RATIO (10-20); Calcium,Total 8.4 mg/dL (8.5-10.1); Chloride 106 mmol/L (98-107); Creatinine, Serum 0.52 mg/dL (0.55-1.02); EST Glomerular Filtration Rate 153 mL/min (>60); Est Glom Filt Rate - Afr Amer 186 mL/min (>60); Glucose 85 mg/dL (74-106); Platelet Estimate ADEQUATE (ADEQ); Potassium 4.4 mmol/L (3.5-5.1); Sodium Level 142 mmol/L (136-145)
[2018-10-11 09:45] LABS: Absolute Lymphocyte Count 1.51 X10^3/ul (0.83-4.51); Absolute Neutrophil Count 1.8 X10^3/uL (2.0-7.7); Basophil# 0.02 X10^3/uL; Basophil% 0.5 % (0-1); Eosinophil# 0.12 X10^3/uL; Hematocrit 29.7 % (37-47); Hemoglobin 9.7 g/dl (12.0-15.0); Lymphocyte # 1.51 X10^3/ul (4.0); Lymphocyte % 37.6 % (19-41); Mean Corp Hgb Conc 32.7 g/gl (32-36); Mean Corpuscular Hgb 27.2 pg (27.0-32.0); Mean Corpuscular Volume 83.4 fL (81-99); Monocyte# 0.52 X10^3/uL; Monocyte% 12.9 % (0-10); Neutrophil # 1.83 X10^3/uL (2.7-7.7); Neutrophil % 45.5 % (47-70); POSITIVE COUNT NO; POSITIVE DIFFERENTIAL NO; POSITIVE MORPHOLOGY YES; Platelet Morphology CLUMPED; RBC Distribution Width CV 15.8 % (11.6-14.6); RBC Distribution Width SD 48.1 fl (35.1-43.9); Red Blood Count 3.56 M/mm3 (4.2-5.4)
[2018-10-11 09:46] LABS: Differential Indicated SCAN CRITERIA MET
[2018-10-11 10:54] LABS: M R Staph aureus DNA By PCR Negative (Negative); Probe Check PASS; Specimen Processing Control PASS; Staph aureus DNA By PCR NEGATIVE (Negative)
[2018-10-11] MEDS: Smz/Tmp Ds Tablet 1 TABLET PO ×2 (12:06→16:52)
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
[2018-10-11 14:21] VITALS: BP 124/76; PULSE 79; RESP 16; TEMP 36.8; O2SAT 93
[2018-10-11 17:52] LABS: Amphetamine Urine VISTA NEGATIVE (<1000 ng/mL); Barbiturate Urine VISTA NEGATIVE (< 200 ng/mL); Benzodiazepine Urine VISTA NEGATIVE (< 200 ng/mL); Cocaine Urine VISTA NEGATIVE (< 300 ng/mL); Ecstacy Urine VISTA NEGATIVE (< 500 ng/mL); Methadone Urine VISTA NEGATIVE (< 300 ng/mL); PCP Urine VISTA NEGATIVE (< 25 ng/mL); THC Urine VISTA NEGATIVE (< 50 ng/mL); Vista UDS pH Range 7
[2018-10-11 20:22] VITALS: BP 137/79; PULSE 68; RESP 16; TEMP 36.8; O2SAT 96
[2018-10-12] MEDS: clonazePAM 1 MG Tablet PO ×2 (00:14→09:19)
[2018-10-12 02:25] VITALS: BP 124/88; PULSE 82; RESP 16; TEMP 36.6; O2SAT 97
[2018-10-12] MEDS: Cefazolin 1 GM/50 ML BAG IV (05:13)
[2018-10-12 08:41] VITALS: BP 131/83; PULSE 62; RESP 16; TEMP 36.5; O2SAT 97
--- NOTE | 2018-10-12 08:56 | DCINST_ITS ---
- Discharge Diagnoses Current Active Problems: Current Active and Chronic Problems Abscess (Acute) Cellulitis (Acute) You will use the following diet at home:: Regular Your food should be the consistency of: Regular Discharge Activity: Return to Normal Activity Weight Bearing Status: Full weight bearing Call your doctor if you observe: Fever of 101 or Higher, Shortness of breath, Dizziness, Fainting spells, Chest pain, Increased palpitations (irregular heartbeat), Uncontrolled pain Additional Instructions: Apply dry sterile dressing to the wounds of both legs. Allergies/Adverse Reactions: Allergies ampicillin sodium [From Unasyn] Allergy (Verified 10/09/18 22:01) Swelling egg Allergy (Verified 10/09/18 22:01) Unknown Penicillins Allergy (Verified 10/09/18 22:01) Swelling sulbactam sodium [From Unasyn] Allergy (Verified 10/09/18 22:01) Swelling Medications to take at Discharge Citalopram [Celexa] 60 mg PO QHS 03/20/16 Clonazepam [Klonopin] 1 mg PO BID 06/11/17 Cyclobenzaprine HCl 10 mg PO TID PRN PRN 11/25/17 Enoxaparin Sodium [Lovenox] 40 mg SQ DAILY 05/22/18 Omeprazole 20 mg PO QHS 10/03/18 Ondansetron [Zofran Odt] 4 mg PO Q8H PRN PRN 10/03/18 proMETHazine tablet [Phenergan tablet] 25 mg PO Q8H PRN PRN 10/03/18 Mupirocin [Bactroban] 1 applic TOPICAL TID 10/10/18 Cephalexin [Keflex] 500 mg PO Q12 #10 capsule 10/12/18 Smz/Tmp Ds [Bactrim Ds] 1 tablet PO BIDCM #10 tablet 10/12/18 The following prescriptions were given: Cephalexin [Keflex] 500 mg PO Q12 #10 capsule Smz/Tmp Ds [Bactrim Ds] 1 tablet PO BIDCM #10 tablet Primary Care Physician: Contreras Preston MD [Primary Care Provider] - Please follow up with your Primary Care Physician in: 1 WEEK. Test Results: Test results from this visit will be discussed in further detail at your follow- up appointment, if applicable. Please Follow Up With: Pipo Malave MD When: 1 WEEK.
[2018-10-12] MEDS: Smz/Tmp Ds Tablet 1 TABLET PO (09:12)
[2018-10-12] MEDS: Pantoprazole Sodium 20 MG Tablet PO (09:14)
[2018-10-12] MEDS: Enoxaparin 40 MG/0.4 ML Syringe SC (09:14)
[2018-10-12] MEDS: Citalopram 20 MG Tablet 60 MG PO (09:14)
--- NOTE | 2018-10-12 13:47 | DS.PCM_ITS ---
Discharge Date and Diagnosis Date of Admission: 10/10/18 Date of Discharge: 10/12/18 - Primary Discharge Diagnosis #1 acute bilateral lower extremity cellulitis. #2 multiple bilateral lower leg infected wounds/small skin abscesses. - Secondary Discharge Diagnosis Chronic Problems Schizoaffective disorder (Chronic) TBI (traumatic brain injury) (Chronic) Hospital Course and Treatment Dr. Prado, general surgery, Operations: None Procedures: None Summary of Care Provided: Patient seen and examined on today's discharge and appeared to be stable to be discharged home. She was seen by general surgery and recommended antibiotics, no need for urgent surgical procedures at this time and recommended follow-up as outpatient. Her vital signs are stable, afebrile. The patient is a 27 year old F presented to the medicine because of redness, swelling and pain of both legs and she was found to have multiple small skin wounds with pus drainage. Her routine blood work was remarkable for chronic anemia, otherwise normal. There is no leukocytosis, no evidence of sepsis or severe sepsis. She was treated with IV cefazolin and oral Bactrim. MRSA wound screen by PCR was negative. Staph aureus PCR was negative as well. Urine drug screen was negative. Patient had open wound with pus drainage on the anterior aspect of the right leg, another wound of about 1 x 1 cm on the back of the right knee with minimal drainage. Also, she has underwent on the anterior aspect of the left leg with minimal drainage and other smaller wound measuring about 1 x 1 cm with minimal pus drainage on the posterior aspect of the left knee. General surgery consulted and recommended to continue antibiotics without need for urgent incision and drainage. Patient remained afebrile throughout admission and her white blood cell count remained normal. Upon admission, wound culture done and showed no growth, final is pending. Repeat wound culture done and revealed gram-positive organism and it was pending at the time of discharge. Patient discharged home in a stable medical condition, discharged on Keflex twice daily and Bactrim DS twice daily for 5 days to complete a total of 7 days of treatment, plan to follow-up with general surgery in 1 week, recommended follow-up with PCP in 1 week as well. - Physical Exam General: Alert, Oriented x3, Cooperative, No apparent distress HEENT: Atraumatic, PERRLA, EOMI, Normocephalic Oral: Moist Mucosa, No Gingival or Mucosal Lesions/ Ulcerations Neck: Supple, No JVD, Negative Carotid Bruits, Trachea Midline, Thyroid Normal Size and Texture Lungs: Clear to auscultation, Normal air movement, No rhonchi, No wheeze, No rales Cardiovascular: Regular rate, Regular Rhythm, Normal S1, Normal S2, PMI Normal Abdomen: Bowel Sounds Present, Soft, Non Tender, Non-Distended, No Hepato- splenomegaly Extremities: No clubbing, No cyanosis, No edema Skin: No rashes, Ulcer/ Wound Lymphatic: No Cervical, Supraclavicular, or Inguinal Adenopathy Neurological: Cranial nerves II-XII grossly intact, Neuro grossly intact Psych/Mental Status: Normal Affect, Appropriate Vital Signs Temp Pulse Resp BP Pulse Ox 97.7 F L 62 16 131/83 H 97 10/12/18 08:41 10/12/18 08:41 10/12/18 08:41 10/12/18 08:41 10/12/18 08:41 Oxygen Delivery Method Room Air Weight: 134 lb 11.239 oz Body Mass Index (BMI) 25.4 Finger Stick Blood Glucose 86 Intake and Output for Last 24 Hours 10/10/18 10/11/18 10/12/18 23:59 23:59 23:59 Intake Total 2411 / 2411 1223 / 1223 766 / 766 Output Total 3050 / 3050 900 / 900 400 / 400 Balance -639 / -639 323 / 323 366 / 366 Microbiology Past 72 Hours 10/11/18 08:30 Gram Stain - Final Wound - Aerobic & Anaerobic Swabs Wound Culture - Preliminary Gram positive organism 10/10/18 00:00 Gram Stain - Final Wound - Leg, Left Wound Culture - Preliminary No growth-Final to follow Laboratory Tests Past 24 Hrs 10/11/18 17:00 Urine Opiates Screen NEGATIVE Urine Methadone Screen NEGATIVE Ur Barbiturates Screen NEGATIVE Ur Phencyclidine Scrn NEGATIVE Ur Amphetamines Screen NEGATIVE U Methamphetamin-MDMA NEGATIVE U Benzodiazepines Scrn NEGATIVE Urine Cocaine Screen NEGATIVE U Cannabinoids Screen NEGATIVE Ur Drug Screen Comment Discharge Activity: Return to Normal Activity Weight Bearing Status: Full weight bearing Call your doctor if you observe: Fever of 101 or Higher, Shortness of breath, Dizziness, Fainting spells, Chest pain, Increased palpitations (irregular heartbeat), Uncontrolled pain Home Medications: Medications to take at Discharge Citalopram [Celexa] 60 mg PO QHS 03/20/16 Clonazepam [Klonopin] 1 mg PO BID 06/11/17 Cyclobenzaprine HCl 10 mg PO TID PRN PRN 11/25/17 Enoxaparin Sodium [Lovenox] 40 mg SQ DAILY 05/22/18 Omeprazole 20 mg PO QHS 10/03/18 Ondansetron [Zofran Odt] 4 mg PO Q8H PRN PRN 10/03/18 proMETHazine tablet [Phenergan tablet] 25 mg PO Q8H PRN PRN 10/03/18 Mupirocin [Bactroban] 1 applic TOPICAL TID 10/10/18 Cephalexin [Keflex] 500 mg PO Q12 #10 capsule 10/12/18 Smz/Tmp Ds [Bactrim Ds] 1 tablet PO BIDCM #10 tablet 10/12/18 Following Prescrptions Were Given to Patient: Cephalexin [Keflex] 500 mg PO Q12 #10 capsule Smz/Tmp Ds [Bactrim Ds] 1 tablet PO BIDCM #10 tablet Primary Care Physician: Contreras Preston MD [Primary Care Provider] - Please follow up with your Primary Care Physician in: 1 WEEK. Please Follow Up With: Pipo Malave MD When: 1 WEEK. Disposition: Home Minutes spent on discharge:: 26 Patient Condition:: Stable Medical Necessity - Tobacco Use Smoking Status: Current every day smoker Tobacco Use: Cigarettes Meaningful Use Info Meaningful Use Diagnoses (Choose all that apply): None applicable Code Visit Inpatient E&M: 11509 Disch Hosp
--- NOTE | 2018-10-13 13:50 | CASEMGMT ---
KHADAR BRAUN DC PHONE CALL DC DATE: 10/12/18 DC Disposition: Home LACE/STRATA: 04/29 Attempted call to listed phone#. No answer, and no message machine picked up.
== END 2018-10-12 10:25 | disposition home or self-care (01) | DRG 603 ==
LOC: ED 22:59 → MS3 10-10 00:49
PROVIDERS: Surgery; Admitting Provider Hospitalist; Emergency Provider Emergency Medicine; Family Provider Internal Medicine; PCP Internal Medicine; Visit Provider Hospitalist
DX: L02.416 Cutaneous abscess of left lower limb (principal); L02.415 Cutaneous abscess of right lower limb; L03.116 Cellulitis of left lower limb; L03.115 Cellulitis of right lower limb; F25.9 Schizoaffective disorder, unspecified; Z86.718 Personal history of other venous thrombosis and embolism; G40.909 Epilepsy, unspecified, not intractable, without status epilepticus; F17.210 Nicotine dependence, cigarettes, uncomplicated; Z87.820 Personal history of traumatic brain injury; Z79.01 Long term (current) use of anticoagulants
CPT/HCPCS: 80048; 80202; 80307; 85025; 87070; 87075; 87077; 87186; 87205; 87640; 97802; 99285; 99406; J7050; J1940

== ENCOUNTER 2018-12-02 17:37 | Emergency (ER) | payer MEDICARE, SELFPAY ==
[2018-12-02 17:39] VITALS: BP 108/81; PULSE 83; RESP 16; TEMP 36.7; O2SAT 98; BMI 24.5
--- NOTE | 2018-12-02 18:20 | ED.DEP ---
ED Disposition - Plan for ED Patient: Instructions: ABSCESS, Incision and Drainage Prescriptions: Clindamycin [Cleocin] 300 mg PO 4X/DAY #80 capsule Referrals: Contreras Preston MD [Primary Care Provider] -
--- NOTE | 2018-12-02 18:28 | ED.VISSUMM ---
- ER Visit Summary Date of Service: 12/02/18 Chief Complaint: Abscess History of Present Illness: The patient is a 28 F presenting with abscess left lower extremity. Patient states she has history of multiple previous abscesses in the past. She has required antibiotics and drainage in the past. She states that she typically drains them at home on her own. This current abscess started yesterday. She has had no fever. She is on Lovenox for history of DVT. She denies any other complaints. Physical Examination: Vitals are stable. Patient is afebrile. Alert no acute distress. HEENT exam is unremarkable. Neck is supple. Lungs are clear and equal bilaterally. Heart is regular rate and rhythm. Extremities 1.5 cm area of fluctuance left medial calf with surrounding erythema. Normal distal pulses. Skin is warm and dry. No focal neurologic deficit. Remainder of exam is unremarkable. Emergency Department Course and Treatment: Patient refused venous Doppler. She refused I&D. She is given prescription for clindamycin. Advised to watch for worsening signs of infection. Advised follow-up with primary care physician. Advised to return to ED for worsening complaints. Disposition: Discharge home Impression: Abscess, left lower extremity This note was generated with [employer] dictation software. It may contain incorrect words, spelling, and punctuation that were not noted in review of the chart prior to signing ED Disposition - Plan for ED Patient: Instructions: ABSCESS, Incision and Drainage Prescriptions: Clindamycin [Cleocin] 300 mg PO 4X/DAY #80 cap Prescription Printed Referrals: Contreras Preston MD [Primary Care Provider] -
[2018-12-02] MEDS: Clindamycin HCl 150 MG Capsule 300 MG PO (18:48)
[2018-12-02 18:50] VITALS: TEMP 36.7
--- NOTE | 2018-12-02 18:52 | ED.RN ---
DISCHARGE INSTRUCTIONS GIVEN TO AND REVIEWED WITH PATIENT, PATIENT DENIES QUESTIONS OR CONCERNS AND VOICES UNDERSTANDING OF DISCHARGE INSTRUCTIONS. PT AMBULATES OUT OF ROOM WITHOUT ISSUE.
== END 2018-12-02 18:52 | disposition home or self-care (01) ==
PROVIDERS: Emergency Provider Emergency Medicine; Family Provider Internal Medicine; PCP Internal Medicine
DX: L02.416 Cutaneous abscess of left lower limb (principal); G40.909 Epilepsy, unspecified, not intractable, without status epilepticus; Z86.718 Personal history of other venous thrombosis and embolism; Z79.01 Long term (current) use of anticoagulants; Z79.899 Other long term (current) drug therapy; Z72.0 Tobacco use
CPT/HCPCS: 99283

== ENCOUNTER 2018-12-16 23:12 | Emergency (ER) | payer MEDICARE, SELFPAY ==
[2018-12-16 23:12] VITALS: BP 104/64; PULSE 110; RESP 18; TEMP 36.7; O2SAT 97; BMI 25.9
--- NOTE | 2018-12-16 23:35 | ED.VIS.GEN ---
History of Present Illness Chief Complaint: Abscess Informant: Patient Onset: Days - 2-3 Context: Gradual Onset Timing: Continuous Quality: sore Location: right upper chest wall Current Severity: Severe Maximum Severity: Severe Worsened by: palpation Relieved by: leaving it alone Associated Symptoms: none Narrative: Patient states she gets abscesses all the time as well as lower extremity cellulitis, and she usually takes care of abscesses at home with a scalpel on her own, but they are usually on her legs. She has never had one on her chest wall before and she is concerned that it is close to my heart hence coming to the emergency department. She denies any fevers or systemic symptoms. - Past Medical History (1) Schizoaffective disorder Status: Chronic (2) TBI (traumatic brain injury) Status: Chronic Past Medical History - Allergies and Home Meds Allergies/Adverse Reactions: Allergies ampicillin sodium [From Unasyn] Allergy (Verified 12/16/18 23:16) Swelling egg Allergy (Verified 12/16/18 23:16) Unknown Penicillins Allergy (Verified 12/16/18 23:16) Swelling sulbactam sodium [From Unasyn] Allergy (Verified 12/16/18 23:16) Swelling red dye Adverse Reaction (Verified 12/16/18 23:16) Nausea Primary Care Physician: Contreras Preston MD [Primary Care Provider] - 1-2 Days if not improving Surgical History: appendectomy, - - vocal cord reconstruction with titanium rods Smoking Status: Current every day smoker - Family History Maternal Family History: Reports: Diabetes, Heart Disease, - - Her mother had congenital deafness. Additional Family History: Patient denies family history of neuro disorder or seizure. Paternal Family History: Reports: Cancer - Brain tumors, Dementia, - - Blood clots Review of Systems General: Denies: Chills, Fever Cardiovascular: Reports: Chest pain - Pain at site of skin abscess. Denies: Palpitations Respiratory: Denies: Dyspnea, Cough Skin: Reports: Abscess - Without spontaneous discharge Physical Exam Vital Signs/Narrative: Vital Signs Temp Pulse Resp BP Pulse Ox 12/16/18 23:12 98.1 F 110 H 18 104/64 97 Inital Vital Signs reviewed: Yes General: Well nourished, Well developed, No Acute Distress Head: Normocephalic, Atraumatic Skin: No Trauma, - - 3 cm pointing indurated cutaneous abscess right upper chest wall not involving breast, with surrounding cellulitis approximately 6 cm in diameter. No petechiae, bullae, spontaneous discharge. It is quite tender. Neurological: Alert, Oriented x3, Cranial nerves II-XII grossly intact, Normal Strength, Normal Sensation Psychological: Normal affect, Normal Mood Diagnostic/Tx/Re-eval - Medical Decision Making Patient was amenable to incision and drainage which was performed. See procedure note. She was given an empiric Bactrim and a prescription for a full course. She had tested negative for MRSA at her recent admission a couple months ago, but this appears to be MRSA until proven otherwise. Procedures Procedure(s): Simple abscess I&D --after prep with chlorhexidine, patient was locally anesthetized with plain 1% lidocaine, 5 cc. Then incised with a #10 blade to obtain purulent material, a large amount was expressed and the abscess immediately deflated. I deloculated with hemostats, irrigated with 10 cc of sterile saline, dressed with bacitracin. ED Disposition - Plan for ED Patient: Disposition: Home or Assisted Living Diagnosis: Cutaneous abscess of chest wall Instructions: ABSCESS, Incision and Drainage Prescriptions: Smz/Tmp Ds [Bactrim Ds] 1 tab PO BID #20 tab Transmission Status: Received by [facility] Referrals: Contreras Preston MD [Primary Care Provider] - 1-2 Days if not improving
[2018-12-17] MEDS: Smz/Tmp Ds Tablet 1 TABLET PO (00:20)
== END 2018-12-17 00:22 | disposition home or self-care (01) ==
PROVIDERS: Emergency Provider Emergency Medicine; Family Provider Internal Medicine; PCP Internal Medicine
DX: L02.213 Cutaneous abscess of chest wall (principal); L03.313 Cellulitis of chest wall; F25.9 Schizoaffective disorder, unspecified; Z87.820 Personal history of traumatic brain injury; Z79.899 Other long term (current) drug therapy; F17.200 Nicotine dependence, unspecified, uncomplicated
CPT/HCPCS: 10060; 99283

== ENCOUNTER 2019-01-20 21:37 | Emergency (ER) | payer MEDICARE, SELFPAY ==
[2019-01-20 21:38] VITALS: BP 131/80; PULSE 91; RESP 16; TEMP 35.7; O2SAT 94; BMI 25.9
[2019-01-20] MEDS: Smz/Tmp Ds Tablet 1 TABLET PO (21:56)
--- NOTE | 2019-01-20 21:56 | ED.VIS.GEN ---
History of Present Illness Chief Complaint: Abscess Informant: Patient Onset: Yesterday Context: Gradual Onset Timing: Continuous Current Severity: Moderate Maximum Severity: Moderate Narrative: Patient presents to the emergency department cellulitis of the right ankle. States it began about 24 hours ago. She has a history of recurrent abscess and cellulitis. She denies any fevers or chills. She states the area has gotten mildly increased in size. It is not rapidly progressed. She denies any significant pain. She states that she has had this before and has responded to oral antibiotics. She denies any history of immunosuppression. Prior similar symptoms: Yes Recent Illness/Hospitalization: No Past Medical History - Allergies and Home Meds Allergies/Adverse Reactions: Allergies ampicillin sodium [From Unasyn] Allergy (Verified 01/20/19 21:38) Swelling egg Allergy (Verified 01/20/19 21:38) Unknown Penicillins Allergy (Verified 01/20/19 21:38) Swelling sulbactam sodium [From Unasyn] Allergy (Verified 01/20/19 21:38) Swelling red dye Adverse Reaction (Verified 01/20/19 21:38) Nausea Primary Care Physician: Contreras Preston MD [Primary Care Provider] - Prior records reviewed: Yes Past Medical History: - Surgical History: appendectomy, - - vocal cord reconstruction with titanium rods Smoking Status: Current every day smoker - Family History Maternal Family History: Reports: Diabetes, Heart Disease, - - Her mother had congenital deafness. Additional Family History: Patient denies family history of neuro disorder or seizure. Paternal Family History: Reports: Cancer - Brain tumors, Dementia, - - Blood clots Review of Systems General: Denies: Chills, Fever, Sweats Eyes: Denies: Visual changes - bilaterally, Diplopia ENT: Denies: Rhinorrhea, Sore throat Cardiovascular: Denies: Chest pain, Palpitations Respiratory: Denies: Dyspnea, Cough, Dyspnea on exertion Gastrointestinal: Denies: Abdominal pain, Nausea, Vomiting, Diarrhea, Melena, Hematochezia Genitourinary: Denies: Dysuria, Hematuria, Frequency Musculoskeletal: Denies: Back pain, Extremity Pain Skin: Reports: Abscess. Denies: Rash, Wounds Neurological: Denies: Headache, Weakness, Numbness Physical Exam Vital Signs/Narrative: Vital Signs Temp Pulse Resp BP Pulse Ox 01/20/19 21:38 96.3 F L 91 16 131/80 H 94 Inital Vital Signs reviewed: Yes General: Well nourished, Well developed, No Acute Distress Head: Normocephalic, Atraumatic Eyes: Perrl, EOMI ENT: Moist mucous membranes, No rhinorrhea Neck: Supple, Nontender Cardiovascular: Regular rate, Regular rhythm, No murmurs Respiratory: No distress, CTA bilaterally, Chest nontender Abdomen: Soft, Nontender, Nondistended, Normal bowel sounds Back: Nontender, Normal Inspection Extremities: No edema, Tenderness - Mild erythema over the lateral malleolus. No focal abscess. No streaking. Normal pulses. Compartments soft. Skin: Normal color, No rash Neurological: Alert, Oriented x3, Cranial nerves II-XII grossly intact, Normal Strength, Normal Sensation Psychological: Normal affect, Normal Mood Diagnostic/Tx/Re-eval - Medical Decision Making The patient has cellulitis of the ankle but no definitive fluctuant area. I do not feel that incision and drainage is necessary at this time. The patient will be started on broad-spectrum antibiotics with staph coverage given her history. She will continue warm compresses. I did assessment counselor her that this needs to be reevaluated within the next 24 to 48 hours. I also counseled her if she cannot get into her primary care to return here. She is comfortable with this plan of care. She will be discharged home. Impression 1. Cellulitis right ankle ED Disposition - Plan for ED Patient: Instructions: Cellulitis Prescriptions: Smz/Tmp Ds [Bactrim Ds] 1 tab PO BID #20 tab Prescription Printed Referrals: Contreras Preston MD [Primary Care Provider] -
[2019-01-20 22:28] VITALS: PULSE 92; RESP 19
== END 2019-01-20 22:29 | disposition home or self-care (01) ==
PROVIDERS: Emergency Provider Emergency Medicine; Family Provider Internal Medicine; PCP Internal Medicine
DX: L03.115 Cellulitis of right lower limb (principal); F17.200 Nicotine dependence, unspecified, uncomplicated
CPT/HCPCS: 99283

== ENCOUNTER 2019-03-23 23:46 | Emergency (ER) | payer MEDICARE, SELFPAY ==
[2019-03-23 23:47] VITALS: BP 131/70; PULSE 67; RESP 16; TEMP 36.7; O2SAT 97; BMI 25.9
[2019-03-24 00:02] VITALS: RESP 18
--- NOTE | 2019-03-24 00:02 | ED.VIS.GEN ---
History of Present Illness Chief Complaint: Wound Check Detail of Chief Complaint: Right foot wound Informant: Patient Onset: Days - 4 days Context: Gradual Onset Current Severity: Moderate Maximum Severity: Moderate Narrative: Patient presents with an abscess of the top of her right foot that she first noted 4 days ago. Yesterday she took tweezers and drained it. She states she had blood and yellow pus returned. She states swelling is improved and she can move her foot better today. She has not had fever or chills. She does get frequent abscesses and cellulitis. Past Medical History - Allergies and Home Meds Allergies/Adverse Reactions: Allergies ampicillin sodium [From Unasyn] Allergy (Verified 03/23/19 23:52) Swelling egg Allergy (Verified 03/23/19 23:52) Unknown Penicillins Allergy (Verified 03/23/19 23:52) Swelling sulbactam sodium [From Unasyn] Allergy (Verified 03/23/19 23:52) Swelling red dye Adverse Reaction (Verified 03/23/19 23:52) Nausea Primary Care Physician: Contreras Preston MD [Primary Care Provider] - Prior records reviewed: Yes Past Medical History: - - Reviewed Surgical History: appendectomy, - - vocal cord reconstruction with titanium rods Smoking Status: Current every day smoker - Family History Maternal Family History: Reports: Diabetes, Heart Disease, - - Her mother had congenital deafness. Additional Family History: Patient denies family history of neuro disorder or seizure. Paternal Family History: Reports: Cancer - Brain tumors, Dementia, - - Blood clots Review of Systems General: Denies: Chills, Fever Eyes: Denies: Visual changes - bilaterally ENT: Denies: Bilateral ear pain Cardiovascular: Denies: Chest pain Respiratory: Denies: Dyspnea Gastrointestinal: Denies: Abdominal pain, Nausea, Vomiting, Diarrhea Musculoskeletal: Reports: Extremity Pain Skin: Reports: Abscess Neurological: Denies: Headache Hematologic: Denies: Easy bruising, Easy bleeding Allergy: Denies: Uticaria Physical Exam Vital Signs/Narrative: Vital Signs Temp Pulse Resp BP Pulse Ox 03/23/19 23:47 98.1 F 67 16 131/70 H 97 Inital Vital Signs reviewed: Yes General: Well nourished, Well developed Head: Normocephalic ENT: Moist mucous membranes Cardiovascular: Regular rate, Regular rhythm Respiratory: No distress, CTA bilaterally Abdomen: Soft, Nontender Extremities: Nontender Skin: - - There is a drained abscess over the top of the right foot. There is a 6 x 7 cm area of mild cellulitis surrounding. She has full range of motion of the foot without difficulty. No lymphangitic streak. Neurological: Alert, Oriented x3 Psychological: Normal affect Diagnostic/Tx/Re-eval - Medical Decision Making Wound to be cleansed and dressed. She be treated with a course of Bactrim, first dose given here. ED Disposition - Plan for ED Patient: Disposition: Home or Assisted Living Diagnosis: Cutaneous abscess Instructions: ABSCESS, Antiobiotic Treatment Only Prescriptions: Smz/Tmp Ds [Bactrim Ds] 1 tablet PO BID #20 tablet Referrals: Contreras Preston MD [Primary Care Provider] - 1 Week if not improving
[2019-03-24] MEDS: Smz/Tmp Ds Tablet 1 TABLET PO (00:09)
[2019-03-24 00:15] VITALS: RESP 18
== END 2019-03-24 00:28 | disposition home or self-care (01) ==
LOC: ED 03-24 00:26
PROVIDERS: Emergency Provider Emergency Medicine; Family Provider Internal Medicine; PCP Internal Medicine
DX: L02.611 Cutaneous abscess of right foot (principal); F17.200 Nicotine dependence, unspecified, uncomplicated
CPT/HCPCS: 99283

== ENCOUNTER 2019-04-30 19:48 | Emergency (ER) | payer MEDICARE, SELFPAY ==
[2019-04-30 19:49] VITALS: BP 120/76; PULSE 76; RESP 18; TEMP 36.6; O2SAT 97; BMI 25.4
--- NOTE | 2019-04-30 21:34 | ED.DCSUM_ITS ---
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 Patient states her last seizure was about a year ago. She states she is on clonazepam 0.5 mg twice a day for her seizures. She notes she ran out of her medication on Saturday. She has a refill due on Saturday. Patient states she waits too long to get her refills which is why she ran out. Patient notes earlier today she was painting at home and that she felt funny. She started acting differently and then started having seizure activity per report. Patient had all of her shaking for 3 to 4 minutes. It resolved on its own. She then came to the emergency room. Patient did not bite her tongue or have any urinary incontinence. Patient states that she still feels a little confused but otherwise back to normal. She has been oriented states she is not concern for . She denies any other complaints at this time. 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 She notes is been worsening over the past year or so. Her primary care doctor told her to see an eye doctor but she has not done that yet. She denies any significant change in her vision today. 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 Additional Family History: Patient denies family history of neuro disorder or seizure. Paternal Family History: Reports: Cancer - Brain tumors, Dementia, - - Blood clots Review of Systems General: Denies: Chills, Fever, Sweats Eyes: Reports: Diplopia. Denies: Visual changes - bilaterally ENT: Denies: Rhinorrhea, Sore throat Cardiovascular: Denies: Chest pain, Palpitations Respiratory: Reports: Cough. Denies: Dyspnea, Dyspnea on exertion Gastrointestinal: Denies: Abdominal pain, Nausea, Vomiting, Diarrhea, Melena, Hematochezia Genitourinary: Denies: Dysuria, Hematuria, Frequency Musculoskeletal: Denies: Back pain, Extremity Pain Skin: Denies: Rash, Wounds Neurological: Reports: Headache, - - Seizure. Denies: Weakness, Numbness Physical Exam Vital Signs/Narrative: Vital Signs Temp Pulse Resp BP Pulse Ox 04/30/19 19:49 97.9 F 76 18 120/76 97 Inital Vital Signs reviewed: Yes General: Well nourished, Well developed, No Acute Distress Head: Normocephalic, Atraumatic Eyes: Perrl, EOMI, - - Strabismus of the right eye, corrected with conscious effort ENT: Moist mucous membranes, No rhinorrhea Neck: Supple, Nontender, - - Anterior scar from prior cricothyrotomy Cardiovascular: Regular rate, Regular rhythm, No murmurs Respiratory: No distress, CTA bilaterally, Chest nontender Abdomen: Soft, Nontender, Nondistended Back: Nontender, Normal Inspection Extremities: Nontender, No edema Skin: Normal color, No rash Neurological: Alert, Oriented x3, Cranial nerves II-XII grossly intact, Normal Sensation, - - Atrophy and stricture of left upper extremity?chronic, normal strength in all other extremities Psychological: Normal affect, Normal Mood Diagnostic/Tx/Re-eval - Medical Decision Making Patient is evaluated for breakthrough seizure. She has been off of her seizure medication for the past 3 days. Patient has a new prescription that will be filled on Saturday. In oars report is checked which confirms that patient does regularly receive clonazepam 0.5 mg twice a day for 30-day increments. She will be given a 2-day supply until she can get her full prescription filled. She is given 1 dose in the emergency room. Patient will otherwise follow-up with her neurologist and her automotive services manager. Her strabismus seems to be chronic and I do not think she requires a repeat head CT at this time. She has normal vital signs. She is otherwise well-appearing with a nonfocal neurologic exam. Patient is counseled on signs and symptoms requiring return to the emergency room. Patient verbalizes agreement and understand this plan. Patient discharged home in stable and improved condition. ED Disposition - Plan for ED Patient: Disposition: Home or Assisted Living Diagnosis: Breakthrough seizure Instructions: SEIZURE, Recurrent [Adult] Prescriptions: Clonazepam 0.5 mg PO BID #4 tab Prescription Printed Referrals: Contreras Preston MD [Primary Care Provider] - Additional Instructions: It is very important that you refill your seizure medications regularly so that you do not run out and risk having breakthrough seizures. Please follow-up with your eye doctor as well as your neurologist. Return to the ER if you have worsening symptoms.
[2019-04-30] MEDS: clonazePAM 0.5 MG Tablet PO (21:52)
== END 2019-04-30 21:55 | disposition home or self-care (01) ==
PROVIDERS: Emergency Provider Emergency Medicine; Family Provider Internal Medicine; PCP Internal Medicine
DX: G40.909 Epilepsy, unspecified, not intractable, without status epilepticus (principal); H50.9 Unspecified strabismus; R05 Cough; G83.24 Monoplegia of upper limb affecting left nondominant side; Z87.820 Personal history of traumatic brain injury; Z79.899 Other long term (current) drug therapy; F17.200 Nicotine dependence, unspecified, uncomplicated
CPT/HCPCS: 99283

== ENCOUNTER 2019-05-26 19:45 | Emergency (ER) | payer MEDICARE, SELFPAY ==
[2019-05-26 19:46] VITALS: BP 163/109; PULSE 61; RESP 18; TEMP 36.8; O2SAT 98; BMI 23.8
--- NOTE | 2019-05-26 20:01 | ED.VISSUMM ---
- ER Visit Summary Date of Service: 05/26/19 Chief Complaint: Dental pain History of Present Illness: The patient is a 28 F who presents with dental pain that has been getting worse over the past 4 days. Patient states her pain is over all of her upper teeth. Patient states it is worse over the right upper lateral incisors and canines. Patient has been taking ibuprofen and Tylenol with no relief. Patient has been using some topical agents which helps some. Patient denies any fevers. Patient admits to some gum and jaw swelling. Patient also admits to hot sensitivity but denies any cold sensitivity. Physical Examination: Vital signs are stable. Patient is afebrile. Patient is in no acute distress. Oral mucosa is pink and moist. Oropharynx is clear. There are dental caries over all of the upper teeth. There is gingival edema over the right upper incisors and canines. There is no fluctuance or abscess formation. There is no discharge or drainage. Neck is supple. Trachea is midline. There is no JVD noted. There is no sublingual edema or swelling. Heart was regular rate and rhythm. Lungs are clear and equal bilaterally. Emergency Department Course and Treatment: Patient was given a prescription for clindamycin. Patient was given her first dose here. Patient was instructed to follow-up with her dentist in 5 to 7 days. Patient understood and was agreeable with the plan. All questions were answered. Disposition: Discharge home Impression: Infected dental caries This note was generated with [employer] dictation software. It may contain incorrect words, spelling, and punctuation that were not noted in review of the chart prior to signing ED Disposition - Plan for ED Patient: Disposition: Home or Assisted Living Diagnosis: Infected dental caries Instructions: Dental Cavity Prescriptions: Clindamycin HCl [Cleocin] 300 mg PO Q6H #40 cap Prescription Printed Referrals: Contreras Preston MD [Primary Care Provider] - 5-7 Days Dentist,Rosalba [STAFF PHYSICIAN] - 5-7 Days
[2019-05-26] MEDS: Clindamycin HCl 150 MG Capsule 300 MG PO (20:13)
== END 2019-05-26 20:21 | disposition home or self-care (01) ==
PROVIDERS: Emergency Provider Emergency Medicine; Family Provider Internal Medicine; PCP Internal Medicine
DX: K04.7 Periapical abscess without sinus (principal); K02.9 Dental caries, unspecified; R05 Cough; F32.9 Major depressive disorder, single episode, unspecified; Z79.899 Other long term (current) drug therapy; F17.200 Nicotine dependence, unspecified, uncomplicated
CPT/HCPCS: 99283

== ENCOUNTER 2019-07-03 20:22 | Emergency (ER) | payer MEDICAID, SELFPAY ==
[2019-07-03 20:23] VITALS: BP 116/79; PULSE 74; RESP 15; TEMP 36.4; O2SAT 96; BMI 24.5
--- NOTE | 2019-07-03 20:43 | ED.DCSUM_ITS ---
- ER Visit Summary Date of Service: 07/03/19 Chief Complaint: Toothache History of Present Illness: The patient is a 28 F who is had a tooth ache for 4 days. Is on the left lower side. No fever or jaw swelling. She tried Tylenol at home without any relief. She does feel nauseous at this time. She currently does not have a dentist. She knows that she has bad dentition. Physical Examination: Vital signs reviewed. Mouth exam reveals tenderness at tooth #18. She has widespread dental decay. She has a lot of rotted teeth. No facial swelling. No gingival abscess. Test Results: None performed Emergency Department Course and Treatment: Patient will be treated with clindamycin and naproxen. I will give her a list of dental resources. She will need to follow-up with a dentist Treatment Plan: [] Disposition: Discharge Impression: Odontalgia This note was generated with [employer] dictation software. It may contain incorrect words, spelling, and punctuation that were not noted in review of the chart prior to signing ED Disposition - Plan for ED Patient: Disposition: Home or Assisted Living Instructions: Dental Pain Prescriptions: Clindamycin [Cleocin] 300 mg PO TID #42 cap Transmission Status: Pending to [facility] #30 Naproxen [Naprosyn] 500 mg PO BID #20 tab Transmission Status: Pending to [facility] #30 Referrals: Contreras Preston MD [Primary Care Provider] - Additional Instructions: Prescriptions were electronically transmitted to [facility]
[2019-07-03] MEDS: Naproxen 500 MG Tablet PO (21:01)
[2019-07-03] MEDS: Clindamycin HCl 150 MG Capsule 300 MG PO (21:01)
== END 2019-07-03 21:08 | disposition home or self-care (01) ==
LOC: ED 20:48
PROVIDERS: Emergency Provider Emergency Medicine; PCP Internal Medicine
DX: K08.89 Other specified disorders of teeth and supporting structures (principal); K02.9 Dental caries, unspecified; G40.909 Epilepsy, unspecified, not intractable, without status epilepticus; Z87.820 Personal history of traumatic brain injury; Z79.899 Other long term (current) drug therapy; Z72.0 Tobacco use
CPT/HCPCS: 99283

== ENCOUNTER 2020-04-04 21:28 | Emergency (ER) | payer MEDICAID, SELFPAY ==
[2020-04-04 21:29] VITALS: BP 132/85; PULSE 73; RESP 18; TEMP 36.2; O2SAT 99; BMI 23.6
[2020-04-04 22:15] VITALS: RESP 18
--- NOTE | 2020-04-04 22:56 | ED.VIS.GEN ---
History of Present Illness Chief Complaint: Seizure Informant: Patient Narrative: Stated she has had 3 seizures in the last week. She has a history of chronic seizures for years. She takes Klonopin for her seizures and no other medications. She has been on other medications with side effects in the past therefore she is no longer taking them. She does have a neurologist and family doctor and psychiatrist. She also have a anxiety. She stated her psychiatrist prescribes her Klonopin and is weaning her down over the last month. She normally was taking 0.5 mg 3 times a day and is now on 0.5 mg once a day. She did not take a dose today. She has 3 pills left. Next refill is next Saturday. She stated that normally she can take an extra Klonopin when she feels an aura of a seizure coming on. She stated she was at the tanning bed tonight and was taking too long and they think she may have had a seizure. Brought in by a friend. Patient denies any complaints at this time other than has a mild frontal headache. She states this is a chronic issue for her. She states this is not new. - Past Medical History (1) Abscess Status: Acute (2) Cellulitis Status: Acute (3) Schizoaffective disorder Status: Chronic (4) TBI (traumatic brain injury) Status: Chronic Past Medical History - Allergies and Home Meds Allergies/Adverse Reactions: Allergies ampicillin sodium [From Unasyn] Allergy (Verified 07/03/19 20:26) Swelling egg Allergy (Verified 07/03/19 20:26) Unknown Penicillins Allergy (Verified 07/03/19 20:26) Swelling sulbactam sodium [From Unasyn] Allergy (Verified 07/03/19 20:26) Swelling red dye Adverse Reaction (Verified 07/03/19 20:26) Nausea Primary Care Physician: Contreras Preston MD [Primary Care Provider] - Prior records reviewed: Yes Past Medical History: - - See problem list Surgical History: appendectomy, - - vocal cord reconstruction with titanium rods, history of cricothyrotomy Smoking Status: Current every day smoker Alcohol: None Drugs: None - Family History Maternal Family History: Reports: Diabetes, Heart Disease, - - Her mother had congenital deafness. Additional Family History: Patient denies family history of neuro disorder or seizure. Paternal Family History: Reports: Cancer - Brain tumors, Dementia, - - Blood clots Review of Systems General: Denies: Chills, Fever, Sweats Eyes: Denies: Visual changes - bilaterally, Diplopia ENT: Denies: Rhinorrhea, Sore throat Cardiovascular: Denies: Chest pain, Palpitations Respiratory: Denies: Dyspnea, Cough, Dyspnea on exertion Gastrointestinal: Denies: Abdominal pain, Nausea, Vomiting, Diarrhea, Melena, Hematochezia Genitourinary: Denies: Dysuria, Hematuria, Frequency Musculoskeletal: Denies: Back pain, Extremity Pain Skin: Denies: Rash, Wounds Neurological: Reports: Headache. Denies: Weakness, Numbness Physical Exam Vital Signs/Narrative: Vital Signs Temp Pulse Resp BP Pulse Ox 04/04/20 22:15 18 04/04/20 21:29 97.2 F L 73 18 132/85 H 99 General: Well nourished, Well developed, No Acute Distress Head: Normocephalic, Atraumatic Eyes: Perrl, EOMI ENT: Moist mucous membranes, No rhinorrhea Neck: Supple, Nontender Cardiovascular: Regular rate, Regular rhythm, No murmurs Respiratory: No distress, CTA bilaterally, Chest nontender Abdomen: Soft, Nontender, Nondistended, Normal bowel sounds Back: Nontender, Normal Inspection Extremities: Nontender, No edema Skin: Normal color, No rash Neurological: Alert, Oriented x3, Cranial nerves II-XII grossly intact, Normal Strength, Normal Sensation Psychological: Normal affect, Normal Mood Diagnostic/Tx/Re-eval - Medical Decision Making This appears to be a chronic problem for the patient. Appears she has a breakthrough seizure she did not take her Klonopin today. She has been trying to ration it as she does not have many doses left. She is to follow-up with her psychiatrist and she would like to follow-up with her neurologist and family doctor. At this time I feel they may need to increase her Klonopin or switch her to a new medication. I do not feel she needs a work-up at this time. There is no injury. I do not feel she needs a repeat CT. This is a chronic problem for the patient. She was given a dose of Klonopin emergency department as well as a dose of Tylenol and will follow up ED Disposition - Plan for ED Patient: Disposition: Home or Assisted Living Diagnosis: Breakthrough seizure Instructions: ED Seizure Recurrent Adult Referrals: Contreras Preston MD [Primary Care Provider] - Additional Instructions: Please follow with your neurologist and psychiatrist
[2020-04-04] MEDS: clonazePAM 0.5 MG Tablet PO (23:14)
[2020-04-04] MEDS: Acetaminophen 325 MG Tablet 650 MG PO (23:15)
[2020-04-04 23:16] VITALS: RESP 16
== END 2020-04-04 23:18 | disposition home or self-care (01) ==
PROVIDERS: Emergency Provider Emergency Medicine; PCP Internal Medicine
DX: G40.909 Epilepsy, unspecified, not intractable, without status epilepticus (principal); F41.9 Anxiety disorder, unspecified; F25.9 Schizoaffective disorder, unspecified; Z87.820 Personal history of traumatic brain injury; Z79.899 Other long term (current) drug therapy; F17.200 Nicotine dependence, unspecified, uncomplicated
CPT/HCPCS: 99283

== ENCOUNTER 2020-08-10 23:52 | Emergency (ER) | payer MEDICAID, MEDICARE, SELFPAY ==
[2020-08-10 23:53] VITALS: BP 120/70; PULSE 79; RESP 18; TEMP 36.2; O2SAT 98; BMI 25.4
--- NOTE | 2020-08-11 00:06 | ED.DCSUM_ITS ---
- ER Visit Summary Date of Service: 08/11/20 Chief Complaint: Left hand wound History of Present Illness: The patient is a 29 F who states she has a wound on her left hand. She states is been there for a couple of days. Started seeping fluid yesterday. She denies having any fevers. She states that she falls asleep a lot with cigarettes on her hand and this is the likely cause. She states that she really has no feeling the left hand so she did not notice it at first. It is on the left fourth finger on the palm side. Physical Examination: Vital signs reviewed. Left hand exam reveals an open wound on the palm side of the left fourth finger near the DIP joint. There is no erythema or drainage at this time. It is minimally tender. The finger is slightly swollen. Test Results: Patient declined the hand x-ray Emergency Department Course and Treatment: I ordered a hand x-ray to ensure that there is no underlying bony destruction. The patient refused to have the x-ray because she did not want her fingers taped to ensure proper positioning for the x-ray. At this point I am going to put the patient on clindamycin in case there is a wound infection. I will give her orthopedic follow-up and I stressed to her that she is to follow-up to make sure that this wound heals correctly. I also educated her to not fall asleep with cigarettes in her hand. Treatment Plan: [] Disposition: Discharge Impression: Left fourth finger wound This note was generated with [employer] dictation software. It may contain incorrect words, spelling, and punctuation that were not noted in review of the chart prior to signing ED Disposition - Plan for ED Patient: Disposition: Home or Assisted Living Instructions: ED Wound Check (Infection) Prescriptions: Clindamycin [Cleocin] 300 mg PO 4X/DAY #80 capsule Transmission Status: Pending to [facility] #30 Referrals: Contreras Preston MD [Primary Care Provider] -
[2020-08-11] MEDS: Clindamycin HCl 150 MG Capsule 300 MG PO (00:17)
[2020-08-11 00:40] VITALS: PULSE 76; RESP 17
== END 2020-08-11 00:40 | disposition home or self-care (01) ==
LOC: ED 08-11 00:32
PROVIDERS: Emergency Provider Emergency Medicine; PCP Internal Medicine
DX: S61.402A Unspecified open wound of left hand, initial encounter (principal); X08.8XXA Exposure to other specified smoke, fire and flames, initial encounter; Y93.9 Activity, unspecified; Y92.9 Unspecified place or not applicable; G40.909 Epilepsy, unspecified, not intractable, without status epilepticus; Z79.899 Other long term (current) drug therapy; Z72.0 Tobacco use
CPT/HCPCS: 99282

== ENCOUNTER 2021-01-01 15:45 | Emergency (ER) | payer MEDICARE, MEDICAID, SELFPAY ==
[2021-01-01 15:46] VITALS: BP 105/84; PULSE 77; RESP 16; TEMP 36.4; O2SAT 98; BMI 23.6
[2021-01-01 15:50] VITALS: BP 105/84; PULSE 76; RESP 18; O2SAT 100
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
== END 2021-01-01 16:58 | disposition home or self-care (01) ==
PROVIDERS: Emergency Provider Emergency Medicine; PCP Internal Medicine
DX: R51.9 Headache, unspecified (principal); H69.82 Other specified disorders of Eustachian tube, left ear; K21.9 Gastro-esophageal reflux disease without esophagitis; F25.9 Schizoaffective disorder, unspecified; Z87.820 Personal history of traumatic brain injury; Z79.899 Other long term (current) drug therapy; F17.210 Nicotine dependence, cigarettes, uncomplicated
CPT/HCPCS: 99282

== ENCOUNTER 2021-03-13 16:52 | Emergency (ER) | payer MEDICARE, MEDICAID, SELFPAY ==
[2021-03-13 16:53] VITALS: BP 126/89; PULSE 87; RESP 16; TEMP 36.3; O2SAT 99; BMI 23.6
--- NOTE | 2021-03-13 17:06 | ED.RN ---
Pt. does report they did have a seizure this morning, but just zoned out. pt. states they are not here because of a seizure. They were afraid to tell triage and significant other they attempted to inject buprinorphione at 1600 today. Pt. alert and oriented x4. Has bump above left eye.
--- NOTE | 2021-03-13 17:27 | EDS_ITS ---
HPI History of Present Illness Chief Complaint: Seizure Informant: patient Narrative Narrative: 30-year-old female presents to the emergency room 1/2 hours after she crushed some Subutex and injected it into her left forehead. She is afraid she is going to . 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 She called her addiction doctor who recommended she come to emergency. [facility] Medical History Hypoglycemia Seizures Home Medications clonazepam 1 mg PO BID 06/11/17 [History Last Taken 10/08/18] omeprazole 20 mg PO QHS 10/03/18 [History Last Taken 10/08/18] buprenorphine HCl 8 mg SL BID 01/20/19 [History Last Taken Unknown] albuterol sulfate 1 - 2 puff IH Q4H PRN PRN 07/03/19 [History Last Taken Unknown] cetirizine [Zyrtec] 10 mg PO DAILY #14 cap 01/01/21 [Rx Last Taken Unknown] citalopram [Celexa] 80 mg PO DAILY 01/01/21 [History Last Taken Unknown] lamotrigine [Lamictal] 200 mg PO DAILY 01/01/21 [History Last Taken Unknown] omeprazole 20 mg PO DAILY #30 cap 01/01/21 [Rx Last Taken Unknown] Allergy/AdvReac Type Severity Reaction Status Date / Time ampicillin sodium Allergy Swelling Verified 03/13/21 16:55 [From Unasyn] egg Allergy Unknown Verified 03/13/21 16:55 Penicillins Allergy Swelling Verified 03/13/21 16:55 sulbactam sodium Allergy Swelling Verified 03/13/21 16:55 [From Unasyn] red dye AdvReac Nausea Verified 03/13/21 16:55 Social History (Updated 03/13/21 @ 17:[address] Darrion Holt DO) Smoking Status: Current every day smoker tobacco type: cigarettes substance use type: former substance user ROS ROS ED Constitutional Constitutional ED: Denies chills or weight loss Eyes Eyes: Denies change in vision or diplopia ENT ENT ED: Denies ear pain, rhinorrhea or sore throat Cardiovascular Cardiovascular: Denies chest pain, orthopnea, palpitations or racing heartbeat Respiratory/Chest Respiratory/Chest: Denies cough, dyspnea or orthopnea Gastrointestinal Gastrointestinal: Denies abdominal pain, diarrhea, nausea or vomiting Genitourinary Genitourinary ED: Denies dysuria, hematuria or urinary frequency Musculoskeletal Musculoskeletal: Denies arthralgias or myalgias Integumentary Denies abscess or rash Neurologic Neurologic: Denies headache(s) or weakness Psychiatric Psychiatric: Denies anxiety, depression, suicidal ideation or suicidal thoughts Endocrine Endocrinology: Denies polydipsia, polyphagia or polyuria Allergic/Immunologic Allergic/Immunologic ED: Denies mouth swelling, tongue swelling or urticaria EXAM Physical Exam Const Vital Signs: 03/13/21 16:53 Temperature 97.4 F L Temperature Source Temporal Pulse Rate 87 Respiratory Rate 16 Blood Pressure 126/89 H Blood Pressure Mean 101 Pulse Ox 99 Oxygen Delivery Method Room Air Positive well nourished and well developed General Appearance ED: well developed HEENT Reports normocephalic, head/scalp atraumatic and moist mucous membranes; Denies TM's clear HEENT Narrative: There is some mild swelling of the left forehead no skin discoloration. It is nontender. There is a recent injection site. She is able to wrinkle her forehead tenderness Tympanic Membrane ED: Negative for TM's clear Eyes PERRL and EOMs intact bilaterally Neck no lymphadenopathy, supple and no JVD Resp normal respiratory effort and clear to auscultation bilaterally Cardio regular rate, regular rhythm and no murmurs GI normal to inspection, nondistended, normoactive bowel sounds and non-tender Palpation: soft Back/Spine no CVA tenderness and normal ROM Extremity normal to inspection General Extremety ED: Negative for edema General Extremity: Negative for edema Neuro oriented x3 and CN's II-XII intact bilaterally Sensorium / Orientation: alert Motor Exam: strength 5/5 throughout Psych mental status grossly normal Mood & Affect: Negative for depressed or tearful Skin no rashes or lesions noted and no wounds MDM MDM MDM Narrative Medical decision making narrative: Patient was advised to apply heat and gentle massage tonight in the next couple days. She was advised to monitor for signs of skin necrosis which we talked about. If she starts to have concerns of some skin discoloration she should schedule an appointment with plastic surgery. If she is showing evidence of infection which we talked about she should return for possible antibiotic use. Discharge Plan Triage Chief Complaint: Seizure ED Provider: Darrion Holt Dx/Rx/DC Orders Clinical Impression: Accidental drug ingestion Instructions: ED Accidental Ingestion ... Prescriptions: No Action clonazepam 1 MG tablet 1 mg PO BID RF: 0 omeprazole 20 MG tablet,disintegrat, delay rel 20 mg PO QHS RF: 0 buprenorphine HCl 8 MG tablet, sublingual 8 mg SL BID RF: 0 albuterol sulfate 1 PUFF inhaler 1 - 2 puff IH Q4H PRN PRN (Reason: Wheezing) RF: 0 lamotrigine [Lamictal] 200 mg Tablet 200 mg PO DAILY RF: 0 citalopram [Celexa] 40 mg Tablet 80 mg PO DAILY RF: 0 Zyrtec 10 mg capsule 10 mg PO DAILY Qty: 14 RF: 0 omeprazole 20 mg capsule,delayed release(DR/EC) 20 mg PO DAILY Qty: 30 RF: 0 Primary Care Provider: Contreras Preston Referrals: Aditya Martinez MD [STAFF PHYSICIAN] - 3-5 Days if not improving Contreras Preston MD [Primary Care Provider] - Disposition Disposition: Home, Self Care
[2021-03-13 17:45] VITALS: RESP 16
--- NOTE | 2021-03-13 17:45 | ED.RN ---
REVIEWED D/C INSTRUCTIONS, FOLLOW UP CARE, AND S/S THAT WOULD WARRANT A RETURN TO THE ED WITH PT. PT VERBALIZED AN UNDERSTANDING AND DENIES FURTHER QUESTIONS FOR THIS RN. PT SKIN P/W/D, RESP EVEN AND UNLABORED, PT A&O X 3, NO DISTRESS NOTED. PT AMBULATED OUT OF ED, GAIT STEADY.
== END 2021-03-13 17:46 | disposition home or self-care (01) ==
PROVIDERS: Emergency Provider Emergency Medicine; PCP Internal Medicine
DX: T40.491A Poisoning by other synthetic narcotics, accidental (unintentional), initial encounter (principal); Y92.9 Unspecified place or not applicable; G40.909 Epilepsy, unspecified, not intractable, without status epilepticus; Z79.899 Other long term (current) drug therapy; F17.210 Nicotine dependence, cigarettes, uncomplicated
CPT/HCPCS: 99282

== ENCOUNTER 2021-03-14 20:41 | Emergency (ER) | payer MEDICARE, MEDICAID, SELFPAY ==
[2021-03-14 20:42] VITALS: BP 136/86; PULSE 93; RESP 16; TEMP 36.6; O2SAT 97; BMI 24.5
--- NOTE | 2021-03-15 00:01 | CT_ITS ---
STUDY: CT FACIAL BONES WITH T WITHOUT CONTRAST REASON FOR EXAM: Female, 30 years old. Left forehead and periorbital swelling RADIATION DOSAGE (If Supplied By Facility): CTDIvol = ( 29.38 ) mGy, DLP = ( 620.92 ) mGycm TECHNIQUE: The patient was scanned in a multi detector CT scanner. Transaxial imaging was performed prior to and following the administration of IV 50mL Isovue-370. Sagittal and coronal images were reconstructed. Individualized dose optimization techniques were used for this CT. COMPARISON: None. FINDINGS: Swelling/edema of the leftward scalp, left periorbital soft tissues, and left cheek. No encapsulated fluid collection. Normal orbital rader and orbital contents. No post septal extension of swelling. Normal nasal bones and anterior nasal spine. Normal facial bones. There is no demonstrated fracture. Normal visualized paranasal sinuses. CT/Sinus/Facial Bone IMPRESSION: Left scalp and face soft tissue swelling without encapsulated fluid collection or finding of underlying bone involvement. No intraorbital extension of swelling. Electronically Signed: Vito Dias MD at 2:40 EDT Tel , Service support ,
--- NOTE | 2021-03-15 00:02 | EX.ED.DYSGE1 ---
HPI History of Present Illness Chief Complaint: Shortness of Breath Informant: patient Narrative Narrative: 30-year-old female seen yesterday after she injected Subutex into her forehead. She returns tonight stating that this will outline has worsened and she is worried about infection. No fevers. She has not injected anything more per her. She notes upper and lower eyelid swelling. Her vision has not changed. She is worried that she has air on her brain. [facility] Medical History Hypoglycemia Seizures Home Medications clonazepam 1 mg PO BID 06/11/17 [History Last Taken 10/08/18] omeprazole 20 mg PO QHS 10/03/18 [History Last Taken 10/08/18] buprenorphine HCl 8 mg SL BID 01/20/19 [History Last Taken Unknown] albuterol sulfate 1 - 2 puff IH Q4H PRN PRN 07/03/19 [History Last Taken Unknown] cetirizine [Zyrtec] 10 mg PO DAILY #14 cap 01/01/21 [Rx Last Taken Unknown] citalopram [Celexa] 80 mg PO DAILY 01/01/21 [History Last Taken Unknown] lamotrigine [Lamictal] 200 mg PO DAILY 01/01/21 [History Last Taken Unknown] omeprazole 20 mg PO DAILY #30 cap 01/01/21 [Rx Last Taken Unknown] Allergy/AdvReac Type Severity Reaction Status Date / Time ampicillin sodium Allergy Swelling Verified 03/14/21 20:47 [From Unasyn] egg Allergy Unknown Verified 03/14/21 20:47 Penicillins Allergy Swelling Verified 03/14/21 20:47 sulbactam sodium Allergy Swelling Verified 03/14/21 20:47 [From Unasyn] red dye AdvReac Nausea Verified 03/14/21 20:47 Social History Smoking Status: Current every day smoker tobacco type: cigarettes substance use type: former substance user ROS ROS ED Constitutional Constitutional ED: Denies chills, fever(s) or weight loss Eyes Eyes: Denies change in vision or diplopia ENT ENT ED: Denies ear pain, rhinorrhea or sore throat Cardiovascular Cardiovascular: Denies chest pain, orthopnea, palpitations or racing heartbeat Respiratory/Chest Respiratory/Chest: Denies cough, dyspnea or orthopnea Gastrointestinal Gastrointestinal: Denies abdominal pain, diarrhea, nausea or vomiting Genitourinary Genitourinary ED: Denies dysuria, hematuria or urinary frequency Musculoskeletal Musculoskeletal: Denies arthralgias or myalgias Integumentary Reports other Details: See HPI ; Denies abscess or rash Neurologic Neurologic: Denies headache(s) or weakness Psychiatric Psychiatric: Denies anxiety, depression, suicidal ideation or suicidal thoughts Endocrine Endocrinology: Denies polydipsia, polyphagia or polyuria Allergic/Immunologic Allergic/Immunologic ED: Denies mouth swelling, tongue swelling or urticaria EXAM Physical Exam Const Vital Signs: 03/14/21 20:42 03/14/21 23:26 Temperature 97.8 F Temperature Source Temporal Pulse Rate 93 Respiratory Rate 16 Respiratory Effort Normal Respiratory Depth Normal Respiratory Pattern Normal Blood Pressure 136/86 H Blood Pressure Mean 102 Pulse Ox 97 Oxygen Delivery Method Room Air Positive well nourished and well developed General Appearance ED: well developed HEENT Reports normocephalic, head/scalp atraumatic, TM's clear and moist mucous membranes HEENT Narrative: The patient has swelling of the left forehead and upper and lower eyelid edema with some edema extending down onto the left maxillary area. There is no erythema noted. The eye is not swollen shut. The eye exam otherwise appears normal. Negative for trauma Tympanic Membrane ED: Yes TM's clear Eyes PERRL and EOMs intact bilaterally Neck no lymphadenopathy, supple and no JVD Resp normal respiratory effort and clear to auscultation bilaterally Cardio regular rate, regular rhythm and no murmurs GI normal to inspection, nondistended, normoactive bowel sounds and non-tender Palpation: soft Back/Spine no CVA tenderness and normal ROM Extremity Extremity Narrative: Chronic changes to the left hand and forearm General Extremety ED: Negative for edema General Extremity: Negative for edema Neuro oriented x3 and CN's II-XII intact bilaterally Sensorium / Orientation: alert Motor Exam: strength 5/5 throughout Psych mental status grossly normal Mood & Affect: Negative for depressed or tearful Skin no rashes or lesions noted and no wounds Discharge Plan Triage Chief Complaint: Shortness of Breath ED Provider: Darrion Holt Dx/Rx/DC Orders Prescriptions: No Action clonazepam 1 MG tablet 1 mg PO BID RF: 0 omeprazole 20 MG tablet,disintegrat, delay rel 20 mg PO QHS RF: 0 buprenorphine HCl 8 MG tablet, sublingual 8 mg SL BID RF: 0 albuterol sulfate 1 PUFF inhaler 1 - 2 puff IH Q4H PRN PRN (Reason: Wheezing) RF: 0 lamotrigine [Lamictal] 200 mg Tablet 200 mg PO DAILY RF: 0 citalopram [Celexa] 40 mg Tablet 80 mg PO DAILY RF: 0 Zyrtec 10 mg capsule 10 mg PO DAILY Qty: 14 RF: 0 omeprazole 20 mg capsule,delayed release(DR/EC) 20 mg PO DAILY Qty: 30 RF: 0 Primary Care Provider: Contreras Preston
[2021-03-15 01:13] LABS: Absolute Lymphocyte Count 1.98 X10^3/uL (0.83-4.51); Absolute Neutrophil Count 4.2 X10^3/uL (2.0-7.7); Basophil# 0.03 X10^3/uL; Basophil% 0.4 % (0-1); Eosinophil# 0.28 X10^3/uL; Eosinophils% 3.9 % (0-5); Hematocrit 37.5 % (37-47); Hemoglobin 12.7 g/dL (12.0-15.0); Lymphocyte # 1.98 X10^3/ul (0.83-4.51); Lymphocyte % 27.2 % (19-41); Mean Corp Hgb Conc 33.9 g/dL (32-36); Mean Corpuscular Hgb 30.9 pg (27.0-32.0); Mean Corpuscular Volume 91.2 fL (81-99); Mean Platelet Vol. 9.1 fl (6.2-12.0); Monocyte# 0.72 X10^3/uL; Monocyte% 9.9 % (0-10); NRBC Flagged by Analyzer 0 % (0-5); Neutrophil # 4.24 X10^3/uL (2.7-7.7); Neutrophil % 58.3 % (47-70); Platelet Count 262 K/mm3 (150-450); RBC Distribution Width CV 12.7 % (11.6-14.6); Red Blood Count 4.11 M/mm3 (4.2-5.4); White Blood Count 7.3 K/mm3 (4.4-11.0)
[2021-03-15 01:22] LABS: Prothrombin Time (Protime)PT. 12.9 SECONDS (11.7-14.9)
[2021-03-15 01:29] LABS: ALB/GLOB Ratio 0.8 RATIO (0.9-2.4); AST(SGOT) 18 U/L (15-37); Alanine Aminotransfer ALT/SGPT 20 U/L (13-56); Albumin, Serum 3.7 g/dL (3.2-5.0); Alkaline Phosphatase 55 U/L (45-117); Anion Gap 5 (5-15); BUN 19 mg/dL (7-18); BUN/Creat Ratio 24.5 RATIO (10-20); Calcium,Total 8.8 mg/dL (8.5-10.1); Chloride 103 mmol/L (98-107); Creatinine, Serum 0.78 mg/dL (0.55-1.02); EST Glomerular Filtration Rate 94 mL/min (>60); Est Glom Filt Rate - Afr Amer 113 mL/min (>60); Estimated Creatinine Clearance 81.03 ml/min; Globulin 4.4 g/dL (2.2-4.2); Glucose 85 mg/dL (74-106); Potassium 4.1 mmol/L (3.5-5.1); Protein, Total 8.1 g/dL (6.4-8.2); Sodium Level 136 mmol/L (136-145)
[2021-03-15 01:35] LABS: Lactic Acid 0.5 mmol/L (0.4-1.9)
[2021-03-15 02:32] VITALS: PULSE 73; RESP 16; O2SAT 98
[2021-03-15] MEDS: Doxycycline 100 MG CAPSULE PO (04:34)
[2021-03-15 04:41] VITALS: PULSE 69; RESP 18; O2SAT 97
== END 2021-03-15 05:27 | disposition home or self-care (01) ==
PROVIDERS: Emergency Medicine; Emergency Provider Emergency Medicine; PCP Internal Medicine
DX: H02.845 Edema of left lower eyelid (principal); H02.844 Edema of left upper eyelid; R22.0 Localized swelling, mass and lump, head; G40.909 Epilepsy, unspecified, not intractable, without status epilepticus; Z79.899 Other long term (current) drug therapy; F17.210 Nicotine dependence, cigarettes, uncomplicated
CPT/HCPCS: 36415; 70486; 80053; 83605; 85025; 85610; 85730; 99283; A4216

== ENCOUNTER 2021-03-15 22:54 | Emergency (ER) | payer MEDICARE, MEDICAID, SELFPAY ==
[2021-03-15 22:54] VITALS: BP 102/80; PULSE 83; RESP 16; TEMP 37.1; O2SAT 98; BMI 23.6
--- NOTE | 2021-03-15 23:05 | EDS_ITS ---
HPI History of Present Illness Chief Complaint: Allergic Reaction Informant: patient and spouse/S.O. Onset/Context/Timing Onset: Today (Abscess medial mid right arm with cellulitis) and Days (Forehead and periorbital swelling left side) Quality: Angioedema, periorbital and cellulitis and abscess Location: Left periorbital and right arm Current Severity: Mild Maximum Severity: Mild Worsened by: IV drug use Relieved by: Nothing Associated Symptoms Associated Symptoms: No fever or chills, no cardiac respiratory symptoms and no GI symptoms Narrative Narrative: Patient is a 30-year-old female who has history of schizoaffective disorder, IV drug use. She states she was clean for 8 years. She did something stupid. When asked to elaborate she informed that she injected herself forehead hairline on the left. She denies injecting her right arm however its in the vicinity of a superficial vein. She denies fever or chills. He denies a traumatic fever. She states she has a history of heart murmur. She denies history of SBE. He is not on any immunosuppressive meds. She denies HIV. Uncertain whether she has hepatitis. Prior similar symptoms: Yes Recent Illness/Hospitalization: Yes (For periorbital swelling. The right arm abscess and cellulitis is new) [facility] Medical History (Updated 03/15/21 @ 23:[address] Bertram Abbott MD) Hypoglycemia IVDU (intravenous drug user) Seizures Home Medications clonazepam 1 mg PO BID 06/11/17 [History Last Taken 10/08/18] omeprazole 20 mg PO QHS 10/03/18 [History Last Taken 10/08/18] buprenorphine HCl 8 mg SL BID 01/20/19 [History Last Taken Unknown] albuterol sulfate 1 - 2 puff IH Q4H PRN PRN 07/03/19 [History Last Taken Unknown] cetirizine [Zyrtec] 10 mg PO DAILY #14 cap 01/01/21 [Rx Last Taken Unknown] citalopram [Celexa] 80 mg PO DAILY 01/01/21 [History Last Taken Unknown] lamotrigine [Lamictal] 200 mg PO DAILY 01/01/21 [History Last Taken Unknown] omeprazole 20 mg PO DAILY #30 cap 01/01/21 [Rx Last Taken Unknown] doxycycline monohydrate 100 mg PO BID #20 capsule 03/15/21 [Rx Last Taken Unknown] ibuprofen 600 mg PO Q8H PRN PRN #20 tablet 03/15/21 [Rx Last Taken Unknown] Allergy/AdvReac Type Severity Reaction Status Date / Time ampicillin sodium Allergy Swelling Verified 03/14/21 20:47 [From Unasyn] egg Allergy Unknown Verified 03/14/21 20:47 Penicillins Allergy Swelling Verified 03/14/21 20:47 sulbactam sodium Allergy Swelling Verified 03/14/21 20:47 [From Unasyn] red dye AdvReac Nausea Verified 03/14/21 20:47 Social History (Updated 03/15/21 @ 23:[address] Bertram Abbott MD) household members: significant other Smoking Status: Current every day smoker tobacco type: cigarettes alcohol intake: former substance use type: former substance user and opiates ROS ROS ED Constitutional Constitutional ED: Denies chills, fever(s), subjective, sweats or weight loss Eyes Eyes: Reports other Details: Left periorbital edema ; Denies blurry vision, change in vision or diplopia ENT ENT ED: Denies ear pain, rhinorrhea or sore throat Cardiovascular Cardiovascular: Denies chest pain, orthopnea, palpitations, paroxysmal nocturnal dyspnea or racing heartbeat Respiratory/Chest Respiratory/Chest: Denies cough, dyspnea, dyspnea on exertion, orthopnea, paroxysmal nocturnal dyspnea or sputum Gastrointestinal Gastrointestinal: Denies abdominal pain, diarrhea, nausea or vomiting Genitourinary Genitourinary ED: Denies dysuria, hematuria or urinary frequency Musculoskeletal Musculoskeletal: Denies arthralgias, back pain, myalgias or neck pain Integumentary Reports abscess and rash Neurologic Neurologic: Denies headache(s), paresthesias or weakness Endocrine Endocrinology: Denies polydipsia, polyphagia or polyuria Hematologic/Lymphatic Hematologic/Lymphatic: Denies anemia, easy bleeding or easy bruising Allergic/Immunologic Allergic/Immunologic ED: Denies mouth swelling, tongue swelling or urticaria EXAM Physical Exam Const Vital Signs: 03/15/21 22:54 Temperature 98.8 F Temperature Source Temporal Pulse Rate 83 Respiratory Rate 16 Blood Pressure 102/80 Blood Pressure Mean 87 Pulse Ox 98 Oxygen Delivery Method Room Air Positive well nourished and well developed General Appearance ED: well developed and NAD HEENT Reports TM's clear and moist mucous membranes HEENT Narrative: There is evidence of periorbital soft tissue swelling/edema. There is mild erythema of the upper lid. There is no induration or warmth. There is no preauricular lymphadenopathy. Negative for trauma or tenderness Tympanic Membrane ED: Yes TM's clear Eyes PERRL and EOMs intact bilaterally Eyes Narrative: There is no subconjunctival hemorrhage. There is no pain with movement of eye. General Eye ED: Negative for pale conjunctiva or scleral icterus Neck no lymphadenopathy, supple and no JVD Chest Wall inspection of chest normal and palpation of chest normal Cardio regular rate, regular rhythm, S1 normal heart sound, S2 normal heart sound and no murmurs GI normal to inspection, nondistended, normoactive bowel sounds and non-tender Palpation: soft Back/Spine no CVA tenderness Cervical Spine: Negative for cervical spine tenderness Thoracic Spine / Upper Back: Negative for thoracic spinal tenderness or paraspinal muscle tenderness Lumbar Spine / Lower Back: Negative for lumbar spinal tenderness Extremity Negative for normal to inspection Extremity Narrative: Patient has an area of cellulitis 3 x 7 cm medial right arm with an abscess noted. There is shotty axillary lymphadenopathy. There is no lymphangitis. General Extremety ED: Yes tenderness; Negative for edema General Extremity: Negative for edema Neuro oriented x3, CN's II-XII intact bilaterally and no sensory deficits noted Sensorium / Orientation: alert Motor Exam: strength 5/5 throughout Psych Mood & Affect: anxious Skin no wounds Skin Narrative: Cellulitis and abscess as previously described Rashes: rashes noted MDM MDM MDM Narrative Medical decision making narrative: Viewed prior records. Patient has no evidence of a preseptal cellulitis or orbital cellulitis. This is angioedema. Patient states the swelling has moved. She was informed this is due to gravity. She will allow and consented for I&D of abscess right arm. Procedures Other Procedures Procedure(s): Patient was consented for I&D of right arm abscess. The area was prepped draped sterile manner. The abscess was anesthetized by local infiltration and field block. Incision was made using a 10 blade. There was free flow of purulent material noted. Approximately 3 cc of thick green purulent material drained. Blunt dissection was undertaken. Wick was placed after the cavity was irrigated with normal saline. Discharge Plan Triage Chief Complaint: Allergic Reaction ED Provider: Bertram Abbott Dx/Rx/DC Orders Clinical Impression: Cellulitis and abscess of upper extremity Instructions: ED Abscess Incision And Drainage, ED Cellulitis Prescriptions: New ibuprofen 600 MG tablet 600 mg PO Q8H PRN PRN (Reason: pain) Qty: 20 RF: 0 No Action clonazepam 1 MG tablet 1 mg PO BID RF: 0 omeprazole 20 MG tablet,disintegrat, delay rel 20 mg PO QHS RF: 0 buprenorphine HCl 8 MG tablet, sublingual 8 mg SL BID RF: 0 albuterol sulfate 1 PUFF inhaler 1 - 2 puff IH Q4H PRN PRN (Reason: Wheezing) RF: 0 lamotrigine [Lamictal] 200 mg Tablet 200 mg PO DAILY RF: 0 citalopram [Celexa] 40 mg Tablet 80 mg PO DAILY RF: 0 Zyrtec 10 mg capsule 10 mg PO DAILY Qty: 14 RF: 0 omeprazole 20 mg capsule,delayed release(DR/EC) 20 mg PO DAILY Qty: 30 RF: 0 doxycycline monohydrate 100 MG capsule 100 mg PO BID Qty: 20 RF: 0 Primary Care Provider: Contreras Preston Referrals: Contreras Preston MD [Primary Care Provider] - 2 Days for wound check Disposition Disposition: Home, Self Care
[2021-03-15] MEDS: Lidocaine 1% (20 ml mdv) 20 ML Vial INFILT (23:26)
[2021-03-16 00:04] VITALS: RESP 16
[2021-03-16] MEDS: Ibuprofen 600 MG Tablet PO (00:11)
== END 2021-03-16 00:11 | disposition home or self-care (01) ==
LOC: ED 23:16
PROVIDERS: Emergency Provider Emergency Medicine; PCP Internal Medicine
DX: L02.413 Cutaneous abscess of right upper limb (principal); L03.113 Cellulitis of right upper limb; T78.3XXA Angioneurotic edema, initial encounter; F25.9 Schizoaffective disorder, unspecified; G40.909 Epilepsy, unspecified, not intractable, without status epilepticus; Z79.899 Other long term (current) drug therapy; F17.210 Nicotine dependence, cigarettes, uncomplicated
CPT/HCPCS: 10060; 99283

== ENCOUNTER 2021-03-30 00:01 | Emergency (ER) | payer MEDICARE, MEDICAID, SELFPAY ==
[2021-03-30 00:03] VITALS: BP 131/88; PULSE 61; RESP 18; TEMP 36.1; O2SAT 100; BMI 23.6
--- NOTE | 2021-03-30 00:18 | EX.ED.DYSGE1 ---
HPI History of Present Illness Chief Complaint: Wound Detail of Chief Complaint: Wound and pain scalp due to IV drug use Informant: patient Onset/Context/Timing Onset: Days Context: Sudden Onset Timing: Continuous Quality: Pain Location: Left parietal temporal region Current Severity: Mild Maximum Severity: Moderate Worsened by: Combing her hair Relieved by: Nothing Associated Symptoms Associated Symptoms: No associated symptoms Narrative Narrative: Patient is a 30-year-old woman who has a history of IV drug use. She was recently seen by me for soft tissue swelling due to I the drug use/skin popping. She attempted to inject her scalp vein. She presents now with wound and pain. She denies fever, chills night sweats. Eyes double vision, blurred vision loss of vision. [place] ringing or ears decreased hearing. She denies sore throat. Denies difficulty swallowing or breathing. She denies heart murmur. She denies history of SBE. She denies paresthesia, anesthesia or motor weakness. Prior similar symptoms: Yes Recent Illness/Hospitalization: Yes [facility] Medical History Hypoglycemia IVDU (intravenous drug user) Seizures Home Medications clonazepam 1 mg PO BID 06/11/17 [History Last Taken 10/08/18] omeprazole 20 mg PO QHS 10/03/18 [History Last Taken 10/08/18] buprenorphine HCl 8 mg SL BID 01/20/19 [History Last Taken Unknown] albuterol sulfate 1 - 2 puff IH Q4H PRN PRN 07/03/19 [History Last Taken Unknown] cetirizine [Zyrtec] 10 mg PO DAILY #14 cap 01/01/21 [Rx Last Taken Unknown] citalopram [Celexa] 80 mg PO DAILY 01/01/21 [History Last Taken Unknown] lamotrigine [Lamictal] 200 mg PO DAILY 01/01/21 [History Last Taken Unknown] omeprazole 20 mg PO DAILY #30 cap 01/01/21 [Rx Last Taken Unknown] doxycycline monohydrate 100 mg PO BID #20 capsule 03/15/21 [Rx Last Taken Unknown] ibuprofen 600 mg PO Q8H PRN PRN #20 tablet 03/15/21 [Rx Last Taken Unknown] doxycycline monohydrate 100 mg PO BID #14 capsule 03/30/21 [Rx Last Taken Unknown] ibuprofen 600 mg PO Q6H PRN PRN #20 tablet 03/30/21 [Rx Last Taken Unknown] Allergy/AdvReac Type Severity Reaction Status Date / Time ampicillin sodium Allergy Swelling Verified 03/14/21 20:47 [From Unasyn] egg Allergy Unknown Verified 03/14/21 20:47 Penicillins Allergy Swelling Verified 03/14/21 20:47 sulbactam sodium Allergy Swelling Verified 03/14/21 20:47 [From Unasyn] red dye AdvReac Nausea Verified 03/14/21 20:47 Social History household members: significant other Smoking Status: Current every day smoker tobacco type: cigarettes alcohol intake: former substance use type: former substance user and opiates ROS ROS ED Constitutional Constitutional ED: Denies chills, fever(s), subjective, sweats or weight loss Eyes Eyes: Denies blurry vision, change in vision or diplopia ENT ENT ED: Denies ear pain, rhinorrhea or sore throat Cardiovascular Cardiovascular: Denies chest pain or palpitations Respiratory/Chest Respiratory/Chest: Denies cough or dyspnea Gastrointestinal Gastrointestinal: Denies nausea or vomiting Musculoskeletal Musculoskeletal: Reports other Details: Scalp pain ; Denies arthralgias, back pain, myalgias or neck pain Integumentary Reports rash Neurologic Neurologic: Denies headache(s), paresthesias or weakness Hematologic/Lymphatic Hematologic/Lymphatic: Denies anemia, easy bleeding, easy bruising or lymphadenopathy Allergic/Immunologic Allergic/Immunologic ED: Denies urticaria EXAM Physical Exam Const Vital Signs: 03/30/21 00:03 Temperature 97 F L Temperature Source Temporal Pulse Rate 61 Respiratory Rate 18 Blood Pressure 131/88 H Blood Pressure Mean 102 Pulse Ox 100 Oxygen Delivery Method Room Air Positive well nourished and well developed General Appearance ED: well developed and NAD; Negative for pallor HEENT Reports TM's clear and moist mucous membranes HEENT Narrative: Head is atraumatic normocephalic. Patient has small area of redness the size of a nickel. In the center that there is an eschar. There is no fluctuance. There is no lymphangitis. There is no induration. tenderness Tympanic Membrane ED: Yes TM's clear Eyes PERRL and EOMs intact bilaterally General Eye ED: Negative for pale conjunctiva or scleral icterus Neck no lymphadenopathy, supple and no JVD General: tenderness Chest Wall inspection of chest normal and palpation of chest normal Resp normal respiratory effort and clear to auscultation bilaterally Cardio regular rate, regular rhythm, S1 normal heart sound, S2 normal heart sound and no murmurs Psych mental status grossly normal Skin No no rashes or lesions noted and No no wounds General Skin Exam: Negative for jaundice or pallor Wounds: wounds noted size Size: Size of a nickel. There is an eschar with erythema. There is no fluctuanc MDM MDM MDM Narrative Medical decision making narrative: Patient has a scalp wound which is infected. We will treat with doxycycline for streptococcal and staphylococcal coverage. Patient received her first dose in the emergency room was discharged with prescription. Discharge Plan Triage Chief Complaint: Wound ED Provider: Bertram Abbott Dx/Rx/DC Orders Clinical Impression: Cellulitis of head or scalp Instructions: ED Cellulitis Prescriptions: New doxycycline monohydrate 100 MG capsule 100 mg PO BID Qty: 14 RF: 0 ibuprofen 600 MG tablet 600 mg PO Q6H PRN PRN (Reason: pain) Qty: 20 RF: 0 No Action clonazepam 1 MG tablet 1 mg PO BID RF: 0 omeprazole 20 MG tablet,disintegrat, delay rel 20 mg PO QHS RF: 0 buprenorphine HCl 8 MG tablet, sublingual 8 mg SL BID RF: 0 albuterol sulfate 1 PUFF inhaler 1 - 2 puff IH Q4H PRN PRN (Reason: Wheezing) RF: 0 lamotrigine [Lamictal] 200 mg Tablet 200 mg PO DAILY RF: 0 citalopram [Celexa] 40 mg Tablet 80 mg PO DAILY RF: 0 Zyrtec 10 mg capsule 10 mg PO DAILY Qty: 14 RF: 0 omeprazole 20 mg capsule,delayed release(DR/EC) 20 mg PO DAILY Qty: 30 RF: 0 doxycycline monohydrate 100 MG capsule 100 mg PO BID Qty: 20 RF: 0 ibuprofen 600 MG tablet 600 mg PO Q8H PRN PRN (Reason: pain) Qty: 20 RF: 0 Primary Care Provider: Contreras Preston Referrals: Contreras Preston MD [Primary Care Provider] - 2 Days for wound check Disposition Disposition: Home, Self Care
[2021-03-30] MEDS: Ibuprofen 600 MG Tablet PO (00:28)
[2021-03-30] MEDS: Doxycycline 100 MG CAPSULE PO (00:28)
[2021-03-30 00:32] VITALS: RESP 16
== END 2021-03-30 00:33 | disposition home or self-care (01) ==
LOC: ED 00:30
PROVIDERS: Emergency Provider Emergency Medicine; PCP Internal Medicine
DX: L03.811 Cellulitis of head [any part, except face] (principal); G40.909 Epilepsy, unspecified, not intractable, without status epilepticus; Z79.899 Other long term (current) drug therapy; F17.210 Nicotine dependence, cigarettes, uncomplicated
CPT/HCPCS: 99283

== ENCOUNTER 2021-09-10 16:17 | Emergency (ER) | payer MEDICARE, MEDICAID, SELFPAY ==
[2021-09-10 16:18] VITALS: BP 117/84; PULSE 81; RESP 14; TEMP 36.7; O2SAT 97; BMI 23.3
--- NOTE | 2021-09-10 17:30 | EX.ED.DYSGE1 ---
HPI History of Present Illness Chief Complaint: Abscess Narrative Narrative: Patient presents with 2 abscesses, she has chronic recurrent abscesses. She has no fever chills she has no somatic complaints. The abscesses are on her mid thoracic back and left posterior axillary line mid thoracic region. [facility] Medical History Hypoglycemia IVDU (intravenous drug user) Seizures Home Medications clonazepam 1 mg PO BID 06/11/17 [History Last Taken 10/08/18] omeprazole 20 mg PO QHS 10/03/18 [History Last Taken 10/08/18] buprenorphine HCl 8 mg SL BID 01/20/19 [History Last Taken Unknown] albuterol sulfate 1 - 2 puff IH Q4H PRN PRN 07/03/19 [History Last Taken Unknown] cetirizine [Zyrtec] 10 mg PO DAILY #14 cap 01/01/21 [Rx Last Taken Unknown] citalopram [Celexa] 80 mg PO DAILY 01/01/21 [History Last Taken Unknown] lamotrigine [Lamictal] 200 mg PO DAILY 01/01/21 [History Last Taken Unknown] omeprazole 20 mg PO DAILY #30 cap 01/01/21 [Rx Last Taken Unknown] doxycycline monohydrate 100 mg PO BID #20 capsule 03/15/21 [Rx Last Taken Unknown] ibuprofen 600 mg PO Q8H PRN PRN #20 tablet 03/15/21 [Rx Last Taken Unknown] doxycycline monohydrate 100 mg PO BID #14 capsule 03/30/21 [Rx Last Taken Unknown] ibuprofen 600 mg PO Q6H PRN PRN #20 tablet 03/30/21 [Rx Last Taken Unknown] clindamycin HCl 300 mg PO Q8H #21 cap 09/10/21 [Rx Last Taken Unknown] Allergy/AdvReac Type Severity Reaction Status Date / Time ampicillin sodium Allergy Swelling Verified 09/10/21 16:20 [From Unasyn] egg Allergy Unknown Verified 09/10/21 16:20 Penicillins Allergy Swelling Verified 09/10/21 16:20 sulbactam sodium Allergy Swelling Verified 09/10/21 16:20 [From Unasyn] red dye AdvReac Nausea Verified 09/10/21 16:20 Social History household members: significant other Smoking Status: Current every day smoker tobacco type: cigarettes alcohol intake: former substance use type: former substance user and opiates ROS ROS ED ROS Narrative Past medical history: Reviewed Medications: Reviewed Social history: Noncontributory Review of systems: All systems negative except as indicated General: No fever Neck: No neck pain Cardiovascular: No chest pain Respiratory: No shortness of breath or cough Gastrointestinal: No abdominal pain, nausea vomiting or diarrhea Genitourinary: No dysuria Musculoskeletal: Denies myalgias no difficulty with ambulation. Chronic atrophy of left upper extremity Back: As in HPI Skin: As in HPI Neurological: Negative Psych: No recent behavioral changes Hematologic: No easy bleeding or easy bruising EXAM Physical Exam Narrative Exam Narrative: Physical exam General: Well nourished, Well developed, No Acute Distress Head: Normocephalic, Atraumatic ENT: Moist mucous membranes Neck: Supple, Nontender, No lymphadenopathy Cardiovascular: Regular rate, Regular rhythm Respiratory: No distress, CTA bilaterally Abdomen: Soft, Nontender, Nondistended Back: 2 different abscesses are present 1 mid thoracic paraspinal region was about 4 cm with slight surrounding erythema. ER other abscess is posterior axillary line mid thoracic region about 5 cm. Both abscesses are fluctuating and and indurated. Extremities: Nontender, No edema. Chronic left upper extremity contractures and atrophy. Skin: As above Neurological: Alert, Normal Strength, Normal Sensation Psychological: Normal affect Const Vital Signs: 09/10/21 16:18 Temperature 98.1 F Temperature Source Temporal Pulse Rate 81 Respiratory Rate 14 Blood Pressure 117/84 H Blood Pressure Mean 95 Pulse Ox 97 Oxygen Delivery Method Room Air MDM MDM MDM Narrative Medical decision making narrative: I&D was performed. Patient tolerated procedure well. We will discharge her with antibiotics. Procedures Other Procedures Procedure(s): Incision and drainage Verbal consent obtained 1% lidocaine about 2 to 3 ml in each abscess, I used an 11 blade and ellipsed both abscesses. Copious amount of pus was expectorated from both abscesses. I irrigated. I dressed the abscesses well. Patient tolerated procedure well. Discharge Plan Triage Chief Complaint: Abscess ED Provider: Vito Pfeiffer Dx/Rx/DC Orders Clinical Impression: Abscess, Cellulitis Instructions: Abscess Drainage Prescriptions: New clindamycin HCl 300 mg capsule 300 mg PO Q8H Qty: 21 RF: 0 No Action clonazepam 1 MG tablet 1 mg PO BID RF: 0 omeprazole 20 MG tablet,disintegrat, delay rel 20 mg PO QHS RF: 0 buprenorphine HCl 8 MG tablet, sublingual 8 mg SL BID RF: 0 albuterol sulfate 1 PUFF inhaler 1 - 2 puff IH Q4H PRN PRN (Reason: Wheezing) RF: 0 lamotrigine [Lamictal] 200 mg Tablet 200 mg PO DAILY RF: 0 citalopram [Celexa] 40 mg Tablet 80 mg PO DAILY RF: 0 Zyrtec 10 mg capsule 10 mg PO DAILY Qty: 14 RF: 0 omeprazole 20 mg capsule,delayed release(DR/EC) 20 mg PO DAILY Qty: 30 RF: 0 doxycycline monohydrate 100 MG capsule 100 mg PO BID Qty: 20 RF: 0 ibuprofen 600 MG tablet 600 mg PO Q8H PRN PRN (Reason: pain) Qty: 20 RF: 0 doxycycline monohydrate 100 MG capsule 100 mg PO BID Qty: 14 RF: 0 ibuprofen 600 MG tablet 600 mg PO Q6H PRN PRN (Reason: pain) Qty: 20 RF: 0 Primary Care Provider: Contreras Preston Referrals: Contreras Preston MD [Primary Care Provider] - 2 Days Disposition Disposition: Home, Self Care
[2021-09-10] MEDS: Clindamycin HCl 150 MG Capsule 300 MG PO (17:46)
[2021-09-10] MEDS: Lidocaine 1% (20 ml mdv) 20 ML Vial INFILT (17:46)
== END 2021-09-10 17:54 | disposition home or self-care (01) ==
PROVIDERS: Emergency Provider Emergency Medicine; PCP Internal Medicine; Visit Provider Emergency Medicine
DX: L02.212 Cutaneous abscess of back [any part, except buttock and flank] (principal); G40.909 Epilepsy, unspecified, not intractable, without status epilepticus; L02.412 Cutaneous abscess of left axilla; F17.210 Nicotine dependence, cigarettes, uncomplicated; Z79.899 Other long term (current) drug therapy; L03.312 Cellulitis of back [any part except buttock and flank]; L03.112 Cellulitis of left axilla
CPT/HCPCS: 10060; 99282

== ENCOUNTER 2021-09-21 12:06 | Emergency (ER) | payer MEDICARE, MEDICAID, SELFPAY ==
[2021-09-21 12:07] VITALS: BP 127/84; PULSE 62; RESP 16; TEMP 36.3; O2SAT 97; BMI 23.6
--- NOTE | 2021-09-21 12:26 | CT_ITS ---
STUDY: CT BRAIN WITHOUT CONTRAST REASON FOR EXAM: Female, 30 years old. Headaches, forehead swelling RADIATION DOSAGE (If Supplied By Facility): CTDIvol = ( 44.99 ) mGy, DLP = ( 745.49 ) mGycm TECHNIQUE: Transaxial CT imaging of the brain was performed without administration of intravenous contrast material. Individualized dose optimization techniques were used for this CT. COMPARISON: Comparison is made with prior study of 02/23/2018. FINDINGS: Small scalp hematoma overlying the right frontal bone. Normal calvarium. Normal size ventricles and extra-axial spaces for the patient''s age. Normal white matter tracts of the cerebral hemispheres. Normal basal ganglia and thalami. Normal brainstem. Normal cerebellum. There is no intracranial hemorrhage. There are no findings of an acute ischemic infarction. Normal visualized paranasal sinuses. CT/Brain/Head without Contrast IMPRESSION: Small scalp hematoma overlying the right frontal bone. Electronically Signed: Alex Joyner MD at 13:04 EDT ,
--- NOTE | 2021-09-21 12:27 | EX.ED.DYSGE1 ---
HPI History of Present Illness Chief Complaint: Headache Informant: patient Onset/Context/Timing Onset: Days Context: Gradual Onset Current Severity: Moderate Maximum Severity: Moderate Narrative Narrative: Patient presents secondary to increasing frequency of headaches and noticed a lump on her forehead this morning. She has frequent headaches and takes Tylenol and ibuprofen regularly. She denies recent fall or injury. This morning she noted some swelling on the right side of her forehead. No erythema or overlying skin change. No fever or chills. [facility] Medical History Hypoglycemia IVDU (intravenous drug user) Schizoaffective disorder Seizures TBI (traumatic brain injury) Home Medications clonazepam 1 mg PO BID 06/11/17 [History Last Taken 10/08/18] omeprazole 20 mg PO QHS 10/03/18 [History Last Taken 10/08/18] buprenorphine HCl 8 mg SL BID 01/20/19 [History Last Taken Unknown] albuterol sulfate 1 - 2 puff IH Q4H PRN PRN 07/03/19 [History Last Taken Unknown] cetirizine [Zyrtec] 10 mg PO DAILY #14 cap 01/01/21 [Rx Last Taken Unknown] citalopram [Celexa] 80 mg PO DAILY 01/01/21 [History Last Taken Unknown] lamotrigine [Lamictal] 200 mg PO DAILY 01/01/21 [History Last Taken Unknown] omeprazole 20 mg PO DAILY #30 cap 01/01/21 [Rx Last Taken Unknown] doxycycline monohydrate 100 mg PO BID #20 capsule 03/15/21 [Rx Last Taken Unknown] ibuprofen 600 mg PO Q8H PRN PRN #20 tablet 03/15/21 [Rx Last Taken Unknown] doxycycline monohydrate 100 mg PO BID #14 capsule 03/30/21 [Rx Last Taken Unknown] ibuprofen 600 mg PO Q6H PRN PRN #20 tablet 03/30/21 [Rx Last Taken Unknown] clindamycin HCl 300 mg PO Q8H #21 cap 09/10/21 [Rx Last Taken Unknown] ibuprofen 600 mg PO Q6H PRN PRN #30 tab 09/10/21 [Rx Last Taken Unknown] Allergy/AdvReac Type Severity Reaction Status Date / Time ampicillin sodium Allergy Swelling Verified 09/21/21 12:08 [From Unasyn] egg Allergy Unknown Verified 09/21/21 12:08 Penicillins Allergy Swelling Verified 09/21/21 12:08 sulbactam sodium Allergy Swelling Verified 09/21/21 12:08 [From Unasyn] red dye AdvReac Nausea Verified 09/21/21 12:08 Social History household members: significant other Smoking Status: Current every day smoker tobacco type: cigarettes alcohol intake: former substance use type: former substance user and opiates ROS ROS ED Constitutional Constitutional ED: Denies chills or fever(s) Eyes Eyes: Denies change in vision ENT ENT ED: Denies sore throat Cardiovascular Cardiovascular: Denies chest pain Respiratory/Chest Respiratory/Chest: Denies cough or dyspnea Gastrointestinal Gastrointestinal: Denies abdominal pain, nausea or vomiting Musculoskeletal Musculoskeletal: Denies back pain or neck pain Integumentary Denies rash Neurologic Neurologic: Reports headache(s); Denies paresthesias or weakness Allergic/Immunologic Allergic/Immunologic ED: Denies urticaria EXAM Physical Exam Const Vital Signs: 09/21/21 12:07 Temperature 97.3 F L Temperature Source Temporal Pulse Rate 62 Respiratory Rate 16 Blood Pressure 127/84 H Blood Pressure Mean 98 Pulse Ox 97 Oxygen Delivery Method Room Air Positive well nourished and well developed General Appearance ED: well developed HEENT Reports moist mucous membranes HEENT Narrative: Area of edema noted over the right upper forehead. No overlying skin lesion. No erythema or excessive warmth. No fluctuance. Eyes PERRL and EOMs intact bilaterally Neck supple Chest Wall inspection of chest normal and palpation of chest normal Resp normal respiratory effort and clear to auscultation bilaterally Cardio regular rate and regular rhythm GI non-tender Palpation: soft Back/Spine no CVA tenderness Neuro oriented x3 Sensorium / Orientation: alert Psych mental status grossly normal Skin no rashes or lesions noted MDM MDM MDM Narrative Medical decision making narrative: Patient was offered pain medication but she declined stating that she needs to be able to take care of her children. Head CT obtained. Radiography Diagnostic Testing: Clinical Impression(s) from Imaging Studies Brain CT 09/21/21 12:26 IMPRESSION: Small scalp hematoma overlying the right frontal bone. Electronically Signed: Alex Joyner MD at 13:04 EDT , Treatment and Re-Evaluation Narrative: Head CT reveals focal hematoma to the right forehead. No acute intracranial findings. Test results discussed with the patient. She will continue supportive care at home. Discharge Plan Triage Chief Complaint: Headache ED Provider: Traci Joe Dx/Rx/DC Orders Clinical Impression: Hematoma of frontal scalp Instructions: ED Scalp Contusion, ED Hematoma Prescriptions: No Action clonazepam 1 MG tablet 1 mg PO BID RF: 0 omeprazole 20 MG tablet,disintegrat, delay rel 20 mg PO QHS RF: 0 buprenorphine HCl 8 MG tablet, sublingual 8 mg SL BID RF: 0 albuterol sulfate 1 PUFF inhaler 1 - 2 puff IH Q4H PRN PRN (Reason: Wheezing) RF: 0 lamotrigine [Lamictal] 200 mg Tablet 200 mg PO DAILY RF: 0 citalopram [Celexa] 40 mg Tablet 80 mg PO DAILY RF: 0 Zyrtec 10 mg capsule 10 mg PO DAILY Qty: 14 RF: 0 omeprazole 20 mg capsule,delayed release(DR/EC) 20 mg PO DAILY Qty: 30 RF: 0 doxycycline monohydrate 100 MG capsule 100 mg PO BID Qty: 20 RF: 0 ibuprofen 600 MG tablet 600 mg PO Q8H PRN PRN (Reason: pain) Qty: 20 RF: 0 doxycycline monohydrate 100 MG capsule 100 mg PO BID Qty: 14 RF: 0 ibuprofen 600 MG tablet 600 mg PO Q6H PRN PRN (Reason: pain) Qty: 20 RF: 0 clindamycin HCl 300 mg capsule 300 mg PO Q8H Qty: 21 RF: 0 ibuprofen 600 mg tablet 600 mg PO Q6H PRN PRN (Reason: pain) Qty: 30 RF: 0 Primary Care Provider: Contreras Preston Referrals: Contreras Preston MD [Primary Care Provider] - 1-2 Weeks Disposition Disposition: Home, Self Care
== END 2021-09-21 13:58 | disposition home or self-care (01) ==
PROVIDERS: Emergency Provider Emergency Medicine; PCP Internal Medicine; Visit Provider Emergency Medicine
DX: S00.03XA Contusion of scalp, initial encounter (principal); F25.9 Schizoaffective disorder, unspecified; G40.909 Epilepsy, unspecified, not intractable, without status epilepticus; F17.210 Nicotine dependence, cigarettes, uncomplicated; X58.XXXA Exposure to other specified factors, initial encounter; Z87.820 Personal history of traumatic brain injury; Z79.899 Other long term (current) drug therapy
CPT/HCPCS: 70450; 99282

== ENCOUNTER 2021-09-24 14:41 | Emergency (ER) | payer MEDICARE, MEDICAID, SELFPAY ==
[2021-09-24 14:43] VITALS: BP 133/91; PULSE 88; RESP 17; TEMP 36.6; O2SAT 99; BMI 24.7
--- NOTE | 2021-09-24 15:19 | EX.ED.DYSGE1 ---
HPI History of Present Illness Chief Complaint: Other, Pain/Inj Informant: patient Onset/Context/Timing Onset: Days (7) Context: Gradual Onset Timing: Continuous Quality: sore Location: R forehead Current Severity: Moderate Maximum Severity: Moderate Worsened by: palpation Relieved by: leaving alone but nothing helping to make it go away Associated Symptoms Associated Symptoms: abscesses, migraines, now swollen around the R eye Narrative Narrative: Patient presenting for persistent swelling in her right forehead that is sore and painful, now some of the swelling has come down around her right eye but she has no pain around her right eye. She was seen here around the onset of it when she noticed it spontaneously appear, she had a CT scan that showed nothing but some localized swelling in that area, brain was okay. She has a history of migraines and has been having those daily as well. She has been taking a lot of ibuprofen and Tylenol because they do help but then the headache comes back. She used to be on Topamax to prevent migraines but has not had one in a month and states she plans on trying to go back on that. She has a history of multiple abscesses that recur, and while she has been on clindamycin for the past 1-1.5 weeks for other reasons, she has developed other abscesses, she usually drains them on her own. Currently she has 1 on her left calf, and she has noticed one on her left middle finger. She does not have an sensation in her left hand due to a remote injury involving her brachial plexus according to her. She denies any fevers or chills or systemic symptoms. She does states she gets some pain in her false teeth on the right and her right ear at times. No changes in her hearing. No nasal discharge. No cough or shortness of breath or other systemic symptoms. She later states that she remembers trying to inject a vein on her forehead before this occurred, and now she is wondering if that is related. She regrets it, states she has a history of IV drug use, does know why she did this, states she was not trying to use drugs. [facility] Medical History Hypoglycemia IVDU (intravenous drug user) Schizoaffective disorder Seizures TBI (traumatic brain injury) Home Medications clonazepam 1 mg PO BID 06/11/17 [History Last Taken 10/08/18] omeprazole 20 mg PO QHS 10/03/18 [History Last Taken 10/08/18] buprenorphine HCl 8 mg SL BID 01/20/19 [History Last Taken Unknown] albuterol sulfate 1 - 2 puff IH Q4H PRN PRN 07/03/19 [History Last Taken Unknown] Zyrtec 10 mg PO DAILY #14 cap 01/01/21 [Rx Last Taken Unknown] citalopram [Celexa] 80 mg PO DAILY 01/01/21 [History Last Taken Unknown] lamotrigine [Lamictal] 200 mg PO DAILY 01/01/21 [History Last Taken Unknown] ibuprofen 600 mg PO Q8H PRN PRN #20 tablet 03/15/21 [Rx Last Taken Unknown] ibuprofen 600 mg PO Q6H PRN PRN #20 tablet 03/30/21 [Rx Last Taken Unknown] metoclopramide HCl 10 mg PO Q6H PRN #20 tab 09/24/21 [Rx Last Taken Unknown] sulfamethoxazole-trimethoprim 1 tab PO BID #20 tablet 09/24/21 [Rx Last Taken Unknown] Allergy/AdvReac Type Severity Reaction Status Date / Time ampicillin sodium Allergy Swelling Verified 09/24/21 14:42 [From Unasyn] egg Allergy Unknown Verified 09/24/21 14:42 Penicillins Allergy Swelling Verified 09/24/21 14:42 sulbactam sodium Allergy Swelling Verified 09/24/21 14:42 [From Unasyn] red dye AdvReac Nausea Verified 09/24/21 14:42 Social History household members: significant other Smoking Status: Current every day smoker tobacco type: cigarettes alcohol intake: former substance use type: former substance user and opiates ROS ROS ED Constitutional Constitutional ED: Denies chills or fever(s) Eyes Eyes: Denies change in vision or diplopia ENT ENT ED: Denies rhinorrhea or sore throat Cardiovascular Cardiovascular: Denies chest pain or palpitations Respiratory/Chest Respiratory/Chest: Denies cough or dyspnea Gastrointestinal Gastrointestinal: Denies abdominal pain, diarrhea, nausea or vomiting Genitourinary Genitourinary ED: Denies dysuria or hematuria Musculoskeletal Musculoskeletal: Denies back pain or neck pain Integumentary Reports as per HPI, abscess and skin swelling; Denies rash Neurologic Neurologic: Reports headache(s); Denies paresthesias or weakness Psychiatric Psychiatric: Denies anxiety or suicidal thoughts EXAM Physical Exam Const Vital Signs: 09/24/21 14:43 Temperature 97.8 F Temperature Source Temporal Pulse Rate 88 Respiratory Rate 17 Blood Pressure 133/91 H Blood Pressure Mean 105 Pulse Ox 99 Oxygen Delivery Method Room Air Positive well nourished and well developed General Appearance ED: well developed and NAD HEENT Reports head/scalp atraumatic, EAC's normal, TM's normal bilaterally and moist mucous membranes HEENT Narrative: Asymmetrically swollen area right forehead that is diffusely tender, it is not discrete and there is no overlying erythema or other lesion except for an old scar down closer to her eyebrow that does not appear to be tender. There is right periorbital edema all of which is nontender and without any induration or significant erythema. No parotid tenderness, discharge from Stensen's duct, she has dentures and and the rest of her intraoral exam is normal. She has no trismus. No periauricular or cervical lymphadenitis/lymphadenopathy, external ears normal. No maxillary sinus or ethmoid sinus tenderness. No nasal discharge. normocephalic and atraumatic Eyes PERRL and EOMs intact bilaterally Eyes Narrative: No pain or entrapment with extraocular movements Neck full ROM, no lymphadenopathy, supple and no meningeal signs Resp normal respiratory effort and clear to auscultation bilaterally Cardio regular rate, regular rhythm and no murmurs GI non-tender and non-distended Auscultation: normoactive bowel sounds Palpation: soft Back/Spine no CVA tenderness General Back: other FROM Extremity normal to inspection General Extremety ED: Negative for edema, pulses abnormal or tenderness General Extremity: Negative for edema or pulses abnormal Neuro oriented x3 and CN's II-XII intact bilaterally Neuro Narrative: Normal neurologic exam except for pre-existing weakness and loss of sensation in her distal left upper extremity Sensorium / Orientation: awake and alert Psych Speech: rapid Mood & Affect: anxious Thought Process: flight of ideas Skin Skin Narrative: Patient has a 1 cm small pointing abscess in her left calf with about 2 or 3 cm of surrounding cellulitis that is mildly tender. No spontaneous discharge. Her left middle finger is very swollen and erythematous, and pointing at about the dorsum of the PIPJ consistent with a small abscess. Nontender because she has loss of sensation there. No abscess on the face. MDM MDM MDM Narrative Medical decision making narrative: I think would be reasonable to discontinue her clindamycin and instead prescribe her sulfa medication which is not on her allergy list to cover better for MRSA which she does have a history of according to her. She states she does not typically get antibiotic associated diarrhea we discussed what to do in a case, and she does not deal with these infections as a result of antibiotics as well. Follow-up advised. I do think that the periorbital edema is simply just edema that is settling with gravity and should self-resolved with time. She is taking a lot of ibuprofen. She has no symptoms of GI bleeding but she is having some stomach upset. I advised trying to significantly limit her NSAID intake and prescribed her Reglan to use in place of it for her migraines in the meantime until she can follow-up and get more Topamax. In addition, I also offered to drain several of her small abscesses. She declines and states she wants to do them herself at home. Discharge Plan Triage Chief Complaint: Other, Pain/Inj ED Provider: Jf Severino Dx/Rx/DC Orders Clinical Impression: Abscess of multiple sites, Facial pain, Migraine Instructions: Abscess Drainage Prescriptions: New sulfamethoxazole-trimethoprim [sulfamethoxazole-trimethoprim] 1 TABLET tablet 1 tab PO BID Qty: 20 RF: 0 metoclopramide HCl [metoclopramide HCl] 10 MG tablet 10 mg PO Q6H PRN (Reason: nausea and vomiting) Qty: 20 RF: 0 Continued clonazepam 1 MG tablet 1 mg PO BID RF: 0 omeprazole 20 MG tablet,disintegrat, delay rel 20 mg PO QHS RF: 0 buprenorphine HCl 8 MG tablet, sublingual 8 mg SL BID RF: 0 albuterol sulfate 1 PUFF inhaler 1 - 2 puff IH Q4H PRN PRN (Reason: Wheezing) RF: 0 lamotrigine [Lamictal] 200 mg Tablet 200 mg PO DAILY RF: 0 citalopram [Celexa] 40 mg Tablet 80 mg PO DAILY RF: 0 Zyrtec 10 mg capsule 10 mg PO DAILY Qty: 14 RF: 0 ibuprofen 600 MG tablet 600 mg PO Q8H PRN PRN (Reason: pain) Qty: 20 RF: 0 ibuprofen 600 MG tablet 600 mg PO Q6H PRN PRN (Reason: pain) Qty: 20 RF: 0 Discontinued omeprazole 20 mg capsule,delayed release(DR/EC) 20 mg PO DAILY Qty: 30 RF: 0 doxycycline monohydrate 100 MG capsule 100 mg PO BID Qty: 20 RF: 0 doxycycline monohydrate 100 MG capsule 100 mg PO BID Qty: 14 RF: 0 clindamycin HCl 300 mg capsule 300 mg PO Q8H Qty: 21 RF: 0 ibuprofen 600 mg tablet 600 mg PO Q6H PRN PRN (Reason: pain) Qty: 30 RF: 0 Primary Care Provider: Contreras Preston Referrals: Contreras Preston MD [Primary Care Provider] - 3-5 Days if not improving Disposition Disposition: Home, Self Care
== END 2021-09-24 15:46 | disposition home or self-care (01) ==
PROVIDERS: Emergency Provider Emergency Medicine; PCP Internal Medicine; Visit Provider Emergency Medicine
DX: L02.416 Cutaneous abscess of left lower limb (principal); F25.9 Schizoaffective disorder, unspecified; G40.909 Epilepsy, unspecified, not intractable, without status epilepticus; G43.909 Migraine, unspecified, not intractable, without status migrainosus; F17.210 Nicotine dependence, cigarettes, uncomplicated; Z87.820 Personal history of traumatic brain injury; Z79.899 Other long term (current) drug therapy
CPT/HCPCS: 99282

== ENCOUNTER 2021-10-02 17:56 | Emergency (ER) | payer MEDICARE, MEDICAID, SELFPAY ==
[2021-10-02 17:57] VITALS: BP 148/81; PULSE 95; RESP 16; TEMP 36.1; O2SAT 98; BMI 23.6
[2021-10-02 19:18] VITALS: BP 148/81; PULSE 94; RESP 14; TEMP 36.2; O2SAT 98
--- NOTE | 2021-10-02 20:05 | EX.ED.DYSGE1 ---
HPI History of Present Illness Chief Complaint: Abscess Informant: patient Onset/Context/Timing Onset: Weeks (3) Context: Gradual Onset Timing: Continuous Quality: Dull, throbbing Location: Right forehead Worsened by: Nothing Relieved by: Tylenol, ibuprofen Narrative Narrative: Patient presents with possible abscess to the right forehead that has been getting worse over the last 3 weeks. Patient states the swelling has been getting progressively worse. Patient denies any fevers or chills. Patient admits to a headache. Patient states it radiates into the back of her head. Patient admits to some vomiting but denies any nausea. Patient states Tylenol and ibuprofen have been helping with the pain. Patient denies any discharge or drainage. Patient denies any trauma or injury. [facility] Medical History Hypoglycemia IVDU (intravenous drug user) Schizoaffective disorder Seizures TBI (traumatic brain injury) Home Medications clonazepam 1 mg PO BID 06/11/17 [History Last Taken 10/08/18] omeprazole 20 mg PO QHS 10/03/18 [History Last Taken 10/08/18] buprenorphine HCl 8 mg SL BID 01/20/19 [History Last Taken Unknown] albuterol sulfate 1 - 2 puff IH Q4H PRN PRN 07/03/19 [History Last Taken Unknown] Zyrtec 10 mg PO DAILY #14 cap 01/01/21 [Rx Last Taken Unknown] citalopram [Celexa] 80 mg PO DAILY 01/01/21 [History Last Taken Unknown] lamotrigine [Lamictal] 200 mg PO DAILY 01/01/21 [History Last Taken Unknown] ibuprofen 600 mg PO Q8H PRN PRN #20 tablet 03/15/21 [Rx Last Taken Unknown] ibuprofen 600 mg PO Q6H PRN PRN #20 tablet 03/30/21 [Rx Last Taken Unknown] metoclopramide HCl 10 mg PO Q6H PRN #20 tab 09/24/21 [Rx Last Taken Unknown] sulfamethoxazole-trimethoprim 1 tab PO BID #20 tablet 09/24/21 [Rx Last Taken Unknown] Allergy/AdvReac Type Severity Reaction Status Date / Time ampicillin sodium Allergy Swelling Verified 10/02/21 17:59 [From Unasyn] egg Allergy Unknown Verified 10/02/21 17:59 Penicillins Allergy Swelling Verified 10/02/21 17:59 sulbactam sodium Allergy Swelling Verified 10/02/21 17:59 [From Unasyn] red dye AdvReac Nausea Verified 10/02/21 17:59 Social History household members: significant other Smoking Status: Current every day smoker tobacco type: cigarettes alcohol intake: former substance use type: former substance user and opiates ROS ROS ED Constitutional Constitutional ED: Denies chills or fever(s) Eyes Eyes: Reports blurry vision; Denies change in vision ENT ENT ED: Denies rhinorrhea or sore throat Cardiovascular Cardiovascular: Denies chest pain or palpitations Respiratory/Chest Respiratory/Chest: Denies cough or dyspnea Gastrointestinal Gastrointestinal: Reports vomiting; Denies nausea Genitourinary Genitourinary ED: Denies dysuria or hematuria Musculoskeletal Musculoskeletal: Denies back pain or neck pain Integumentary Reports abscess; Denies rash Neurologic Neurologic: Reports headache(s); Denies weakness Allergic/Immunologic Allergic/Immunologic ED: Denies mouth swelling or urticaria EXAM Physical Exam Const Vital Signs: 10/02/21 17:57 10/02/21 19:18 Temperature 96.9 F L 97.1 F L Temperature Source Temporal Temporal Pulse Rate 95 94 Respiratory Rate 16 14 Blood Pressure 148/81 H 148/81 H Blood Pressure Mean 103 103 Pulse Ox 98 98 Oxygen Delivery Method Room Air Room Air Positive well nourished and well developed General Appearance ED: well developed and NAD HEENT Reports moist mucous membranes Eyes PERRL and EOMs intact bilaterally Neck supple and no JVD Neuro oriented x3, CN's II-XII intact bilaterally and no sensory deficits noted Sensorium / Orientation: alert Motor Exam: strength 5/5 throughout Skin Skin Narrative: There is a tender fluctuant area over the right forehead. There is no erythema or warmth. There is no induration. There is no active discharge or drainage. There is no bony crepitance or step-off. MDM MDM MDM Narrative Medical decision making narrative: I discussed the options with the patient. I was willing to perform an incision and drainage of her right forehead. Patient did not want to wait for the incision and drainage. Patient left prior to completing treatment. Patient left without telling anyone. Patient did not sign out AGAINST MEDICAL ADVICE. Discharge Plan Triage Chief Complaint: Abscess ED Provider: Amol Boo Dx/Rx/DC Orders Clinical Impression: Abscess Prescriptions: No Action clonazepam 1 MG tablet 1 mg PO BID RF: 0 omeprazole 20 MG tablet,disintegrat, delay rel 20 mg PO QHS RF: 0 buprenorphine HCl 8 MG tablet, sublingual 8 mg SL BID RF: 0 albuterol sulfate 1 PUFF inhaler 1 - 2 puff IH Q4H PRN PRN (Reason: Wheezing) RF: 0 lamotrigine [Lamictal] 200 mg Tablet 200 mg PO DAILY RF: 0 citalopram [Celexa] 40 mg Tablet 80 mg PO DAILY RF: 0 Zyrtec 10 mg capsule 10 mg PO DAILY Qty: 14 RF: 0 ibuprofen 600 MG tablet 600 mg PO Q8H PRN PRN (Reason: pain) Qty: 20 RF: 0 ibuprofen 600 MG tablet 600 mg PO Q6H PRN PRN (Reason: pain) Qty: 20 RF: 0 sulfamethoxazole-trimethoprim [sulfamethoxazole-trimethoprim] 1 TABLET tablet 1 tab PO BID Qty: 20 RF: 0 metoclopramide HCl [metoclopramide HCl] 10 MG tablet 10 mg PO Q6H PRN (Reason: nausea and vomiting) Qty: 20 RF: 0 Primary Care Provider: Contreras Preston Referrals: Contreras Preston MD [Primary Care Provider] - 3-5 Days Disposition Disposition: Elopement Discharge Date/Time: 10/02/21 23:00
--- NOTE | 2021-10-02 21:00 | ED.RN ---
pharmacy called for lidocaine as it is out of stock and consent requested from medical office secretary.
[2021-10-02] MEDS: Lidocaine 1% (30 ml sdv) 30 ML Vial INFILT (21:07)
--- NOTE | 2021-10-02 21:08 | NURSING ---
order changed by pharmacy, lido at bedside and scanned
--- NOTE | 2021-10-02 22:57 | ED.RN ---
Patient had let htis nurse she needed to go because of siutter. Note placed at Dr Boo's desk but he was in room with patient. Patient left during code
--- NOTE | 2021-10-02 23:24 | ED.RN ---
Patient did not sign any papers for AMA
== END 2021-10-02 23:00 | disposition left against medical advice (07) ==
PROVIDERS: Emergency Provider Emergency Medicine; PCP Internal Medicine; Visit Provider Emergency Medicine
DX: L02.01 Cutaneous abscess of face (principal); F25.9 Schizoaffective disorder, unspecified; G40.909 Epilepsy, unspecified, not intractable, without status epilepticus; F17.210 Nicotine dependence, cigarettes, uncomplicated; Z87.820 Personal history of traumatic brain injury; Z79.899 Other long term (current) drug therapy; Z53.29 Procedure and treatment not carried out because of patient's decision for other reasons
CPT/HCPCS: 99283

== ENCOUNTER 2021-10-03 20:44 | Emergency (ER) | payer MEDICARE, MEDICAID, SELFPAY ==
[2021-10-03 20:46] VITALS: BP 109/78; PULSE 84; RESP 15; TEMP 35.6; O2SAT 97; BMI 23.6
--- NOTE | 2021-10-03 21:47 | EX.ED.DYSGE1 ---
HPI History of Present Illness Chief Complaint: Abscess Informant: patient Narrative Narrative: 30-year-old female presenting to the emergency room out of concern for a facial abscess. Patient states that for the past 3 weeks she has had a lump on her forehead that continues to get bigger. Initially she came in at the end of August had a CT and it was a possible hematoma at that time but it continues to enlarge. She came to the emergency department yesterday but left because she said she got scared for being alone. She is also asked other caregivers what they think it is and some have told her a sebaceous cyst so she is frustrated by the lack of resolved. She notes that she gets frequent abscesses on her body. [facility] Medical History Hypoglycemia IVDU (intravenous drug user) Schizoaffective disorder Seizures TBI (traumatic brain injury) Home Medications clonazepam 1 mg PO BID 06/11/17 [History Last Taken 10/08/18] omeprazole 20 mg PO QHS 10/03/18 [History Last Taken 10/08/18] buprenorphine HCl 8 mg SL BID 01/20/19 [History Last Taken Unknown] albuterol sulfate 1 - 2 puff IH Q4H PRN PRN 07/03/19 [History Last Taken Unknown] Zyrtec 10 mg PO DAILY #14 cap 01/01/21 [Rx Last Taken Unknown] citalopram [Celexa] 80 mg PO DAILY 01/01/21 [History Last Taken Unknown] lamotrigine [Lamictal] 200 mg PO DAILY 01/01/21 [History Last Taken Unknown] ibuprofen 600 mg PO Q8H PRN PRN #20 tablet 03/15/21 [Rx Last Taken Unknown] ibuprofen 600 mg PO Q6H PRN PRN #20 tablet 03/30/21 [Rx Last Taken Unknown] metoclopramide HCl 10 mg PO Q6H PRN #20 tab 09/24/21 [Rx Last Taken Unknown] sulfamethoxazole-trimethoprim 1 tab PO BID #20 tablet 09/24/21 [Rx Last Taken Unknown] sulfamethoxazole-trimethoprim 1 tab PO BID #20 tablet 10/03/21 [Rx Last Taken Unknown] Allergy/AdvReac Type Severity Reaction Status Date / Time ampicillin sodium Allergy Swelling Verified 10/03/21 20:51 [From Unasyn] egg Allergy Unknown Verified 10/03/21 20:51 Penicillins Allergy Swelling Verified 10/03/21 20:51 sulbactam sodium Allergy Swelling Verified 10/03/21 20:51 [From Unasyn] red dye AdvReac Nausea Verified 10/03/21 20:51 Social History household members: significant other Smoking Status: Current every day smoker tobacco type: cigarettes alcohol intake: former substance use type: former substance user and opiates ROS ROS ED Constitutional Constitutional ED: Denies chills, fever(s) or weight loss Eyes Eyes: Denies change in vision or diplopia ENT ENT ED: Denies ear pain, rhinorrhea or sore throat Cardiovascular Cardiovascular: Denies chest pain, orthopnea, palpitations or racing heartbeat Respiratory/Chest Respiratory/Chest: Denies cough, dyspnea or orthopnea Gastrointestinal Gastrointestinal: Denies abdominal pain, diarrhea, nausea or vomiting Genitourinary Genitourinary ED: Denies dysuria, hematuria or urinary frequency Musculoskeletal Musculoskeletal: Denies arthralgias or myalgias Integumentary Reports abscess; Denies rash Neurologic Neurologic: Denies headache(s) or weakness Psychiatric Psychiatric: Denies anxiety, depression, suicidal ideation or suicidal thoughts Endocrine Endocrinology: Denies polydipsia, polyphagia or polyuria Allergic/Immunologic Allergic/Immunologic ED: Denies mouth swelling, tongue swelling or urticaria EXAM Physical Exam Const Vital Signs: 10/03/21 20:46 Temperature 96.1 F L Temperature Source Temporal Pulse Rate 84 Respiratory Rate 15 Blood Pressure 109/78 Blood Pressure Mean 88 Pulse Ox 97 Oxygen Delivery Method Room Air Positive well nourished and well developed General Appearance ED: well developed HEENT Reports normocephalic, head/scalp atraumatic and moist mucous membranes HEENT Narrative: There is a large 3 cm round area of fluctuance without erythema on the right side of the forehead extending up onto the hairline Eyes PERRL and EOMs intact bilaterally Neck no lymphadenopathy, supple and no JVD Resp normal respiratory effort and clear to auscultation bilaterally Cardio regular rate, regular rhythm and no murmurs GI normal to inspection, nondistended, normoactive bowel sounds and non-tender Palpation: soft Back/Spine no CVA tenderness and normal ROM Extremity normal to inspection General Extremety ED: Negative for edema General Extremity: Negative for edema Neuro oriented x3 and CN's II-XII intact bilaterally Sensorium / Orientation: alert Motor Exam: strength 5/5 throughout Psych mental status grossly normal Mood & Affect: Negative for depressed or tearful Skin no rashes or lesions noted and no wounds MDM MDM MDM Narrative Medical decision making narrative: I explained to the patient that this is a highly cosmetic area and that typically we do use a cruciate incision and packing. However due to the cause of medic area we will proceed with a linear incision and she was okay with this. We talked about the benefits and the risk of each. 1% lidocaine was used to locally anesthetize the wound. A horizontal incision was made with an 11 blade. The wound was probed and expression of a tremendous amount of pus was obtained. Patient tolerated procedure very well. She had requested a dose of Tylenol and was given that and I will start her on Bactrim. Discharge Plan Triage Chief Complaint: Abscess ED Provider: Darrion Holt Dx/Rx/DC Orders Clinical Impression: Abscess of face Instructions: ED Abscess Incision And Drainage Prescriptions: New sulfamethoxazole-trimethoprim [sulfamethoxazole-trimethoprim] 1 TABLET tablet 1 tab PO BID Qty: 20 RF: 0 No Action clonazepam 1 MG tablet 1 mg PO BID RF: 0 omeprazole 20 MG tablet,disintegrat, delay rel 20 mg PO QHS RF: 0 buprenorphine HCl 8 MG tablet, sublingual 8 mg SL BID RF: 0 albuterol sulfate 1 PUFF inhaler 1 - 2 puff IH Q4H PRN PRN (Reason: Wheezing) RF: 0 lamotrigine [Lamictal] 200 mg Tablet 200 mg PO DAILY RF: 0 citalopram [Celexa] 40 mg Tablet 80 mg PO DAILY RF: 0 Zyrtec 10 mg capsule 10 mg PO DAILY Qty: 14 RF: 0 ibuprofen 600 MG tablet 600 mg PO Q8H PRN PRN (Reason: pain) Qty: 20 RF: 0 ibuprofen 600 MG tablet 600 mg PO Q6H PRN PRN (Reason: pain) Qty: 20 RF: 0 sulfamethoxazole-trimethoprim [sulfamethoxazole-trimethoprim] 1 TABLET tablet 1 tab PO BID Qty: 20 RF: 0 metoclopramide HCl [metoclopramide HCl] 10 MG tablet 10 mg PO Q6H PRN (Reason: nausea and vomiting) Qty: 20 RF: 0 Primary Care Provider: Contreras Preston Referrals: Contreras Preston MD [Primary Care Provider] - As Needed Disposition Disposition: Home, Self Care
[2021-10-03] MEDS: Acetaminophen 500 MG Tablet 1000 MG PO (21:52)
[2021-10-03] MEDS: Smz/Tmp Ds Tablet 1 TABLET PO (21:52)
== END 2021-10-03 21:57 | disposition home or self-care (01) ==
PROVIDERS: Emergency Provider Emergency Medicine; PCP Internal Medicine; Visit Provider Emergency Medicine
DX: L02.01 Cutaneous abscess of face (principal); F25.9 Schizoaffective disorder, unspecified; G40.909 Epilepsy, unspecified, not intractable, without status epilepticus; F17.210 Nicotine dependence, cigarettes, uncomplicated; Z87.820 Personal history of traumatic brain injury; Z79.899 Other long term (current) drug therapy
CPT/HCPCS: 10060; 99283

== ENCOUNTER 2022-02-23 20:36 | Emergency (ER) | payer MEDICARE, MEDICAID, SELFPAY ==
[2022-02-23 20:38] VITALS: BP 114/99; PULSE 93; RESP 15; TEMP 37; O2SAT 98; BMI 22.6
--- NOTE | 2022-02-23 21:45 | ED.RN ---
PT LWBS AT 2932
== END 2022-02-23 21:45 | disposition left against medical advice (07) ==
LOC: ED 21:49
PROVIDERS: PCP Internal Medicine
DX: Z53.21 Procedure and treatment not carried out due to patient leaving prior to being seen by health care provider (principal)

== ENCOUNTER 2022-02-24 17:50 | Emergency (ER) | payer MEDICARE, MEDICAID, SELFPAY ==
[2022-02-24 17:52] VITALS: BP 136/90; PULSE 106; RESP 18; TEMP 36.9; O2SAT 97; BMI 22.6
--- NOTE | 2022-02-24 18:17 | EX.ED.DYSGE1 ---
HPI History of Present Illness Chief Complaint: Abscess Informant: patient Onset/Context/Timing Onset: Weeks (1-2) Context: Gradual Onset Timing: Continuous Quality: Dull Location: Bilateral feet, left external ear Worsened by: Nothing Relieved by: Tylenol, ibuprofen Narrative Narrative: Patient presents with abscesses to both feet and pain in her left external ear. Patient states it started in her left foot approximately 1-1/2 weeks ago. Patient states she opened that and drained her left foot. Patient states that a couple days after that she started having some pain and swelling in her right foot. Patient states she opened the right foot and drained it. Patient states that over the last couple of days she has had pain in her left external ear. Patient states she removed most of her piercings out of her left ear. Patient denies any fevers or chills. Patient states that normally in the summertime she goes barefoot and started wearing shoes recently due to the recent cold weather. [facility] Medical History Hypoglycemia IVDU (intravenous drug user) Schizoaffective disorder Seizures TBI (traumatic brain injury) Home Medications clonazepam 1 mg tablet 1 mg PO BID SEIZURES 06/11/17 [History Last Taken 10/08/18] omeprazole 20 mg delayed release,disintegrating tablet 20 mg PO QHS GERD 10/03/18 [History Last Taken 10/08/18] buprenorphine HCl 8 mg sublingual tablet 8 mg SL BID 01/20/19 [History Last Taken Unknown] albuterol sulfate 90 mcg/actuation aerosol inhaler 1 - 2 puff IH Q4H PRN PRN Wheezing 07/03/19 [History Last Taken Unknown] cetirizine 10 mg capsule (Zyrtec) 10 mg PO DAILY #14 caps 01/01/21 [Rx Last Taken Unknown] citalopram 40 mg tablet (Celexa) 80 mg PO DAILY 01/01/21 [History Last Taken Unknown] lamotrigine 200 mg tablet (Lamictal) 200 mg PO DAILY 01/01/21 [History Last Taken Unknown] ibuprofen 600 mg tablet 600 mg PO Q8H PRN PRN pain #20 TABLETS 03/15/21 [Rx Last Taken Unknown] ibuprofen 600 mg tablet 600 mg PO Q6H PRN PRN pain #20 TABLETS 03/30/21 [Rx Last Taken Unknown] metoclopramide HCl 10 mg tablet 10 mg PO Q6H PRN nausea and vomiting #20 tabs 09/24/21 [Rx Last Taken Unknown] sulfamethoxazole 800 mg-trimethoprim 160 mg tablet 1 tab PO BID #20 TABLETS 09/24/21 [Rx Last Taken Unknown] sulfamethoxazole 800 mg-trimethoprim 160 mg tablet 1 tab PO BID #20 TABLETS 10/03/21 [Rx Last Taken Unknown] clindamycin HCl 300 mg capsule (Cleocin HCl) 300 mg PO Q6H #40 CAPSULES 02/24/22 [Rx Last Taken Unknown] Allergy/AdvReac Type Severity Reaction Status Date / Time ampicillin sodium Allergy Swelling Verified 02/24/22 17:52 [From Unasyn] egg Allergy Unknown Verified 02/24/22 17:52 Penicillins Allergy Swelling Verified 02/24/22 17:52 sulbactam sodium Allergy Swelling Verified 02/24/22 17:52 [From Unasyn] red dye AdvReac Nausea Verified 02/24/22 17:52 Social History household members: significant other Smoking Status: Current every day smoker tobacco type: cigarettes alcohol intake: former substance use type: former substance user and opiates ROS ROS ED Constitutional Constitutional ED: Denies chills or fever(s) Eyes Eyes: Denies blurry vision or change in vision ENT ENT ED: Denies rhinorrhea or sore throat Cardiovascular Cardiovascular: Denies chest pain or palpitations Respiratory/Chest Respiratory/Chest: Denies cough or dyspnea Gastrointestinal Gastrointestinal: Reports nausea and vomiting Genitourinary Genitourinary ED: Denies dysuria or hematuria Musculoskeletal Musculoskeletal: Denies back pain or neck pain Integumentary Reports abscess and rash Neurologic Neurologic: Denies headache(s) or weakness Allergic/Immunologic Allergic/Immunologic ED: Denies mouth swelling or urticaria EXAM Physical Exam Const Vital Signs: 02/24/22 17:52 Temperature 98.4 F Temperature Source Temporal Pulse Rate 106 H Respiratory Rate 18 Blood Pressure 136/90 H Blood Pressure Mean 105 Pulse Ox 97 Oxygen Delivery Method Room Air Positive well nourished and well developed General Appearance ED: well developed and NAD HEENT Reports moist mucous membranes HEENT Narrative: The left external ear shows some erythema and tenderness. There is no evidence of any abscess. There is some excoriations noted. There is no active bleeding noted. External auditory canal is clear. Neck no lymphadenopathy, supple and no JVD Extremity Extremity Narrative: There are open wounds over the dorsal aspect of the feet bilaterally. There is some purulent drainage noted from each of the wounds. There is minimal surrounding erythema. There is no fluctuance. Sensation is intact to light touch in all digits. Capillary refill was less than 2 seconds in all digits. Pedal pulses are equal bilaterally. Neuro oriented x3, CN's II-XII intact bilaterally and no sensory deficits noted Skin skin turgor normal MDM MDM MDM Narrative Medical decision making narrative: Patient was given a dose of clindamycin here. CBC was within normal limits. Basic metabolic profile shows a mild hypokalemia of 3.2 but was otherwise within normal limits. 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 Patient left. Patient was given a prescription for clindamycin. This was sent to her pharmacy. Patient left prior to receiving discharge instructions. Lab Data Attestation: I reviewed the patient's lab results. Labs: Laboratory Results - last 24 hr 02/24/22 02/24/22 18:45 18:45 WBC 7.9 RBC 3.62 L Hgb 11.4 L Hct 33.2 L MCV 91.7 MCH 31.5 MCHC 34.3 RDW Std Deviation 45.2 H RDW Coeff of Vu 13.5 Plt Count 264 MPV 9.2 Immature Gran % (Auto) 0.400 Neut % (Auto) 71.8 H Lymph % (Auto) 18.3 L [place] % (Auto) 7.7 Eos % (Auto) 1.4 Baso % (Auto) 0.4 Absolute Neuts (auto) 5.7 Absolute Lymphs (auto) 1.45 Nucleated RBC % 0 Sodium 142 Potassium 3.2 L Chloride 112 H Carbon Dioxide 23.0 Anion Gap 7 BUN 10 Creatinine 0.52 L Estim Creat Clear Calc 120.46 Est GFR (MDRD) Af Amer 181 Est GFR (MDRD) Non-Af 150 BUN/Creatinine Ratio 19.4 Glucose 96 Calcium 8.7 Discharge Plan Triage Chief Complaint: Abscess ED Provider: Amol Boo Dx/Rx/DC Orders Clinical Impression: Cellulitis of both feet, Cellulitis of left external ear, Open wound of left foot, Open wound of right foot Instructions: ED Cellulitis Prescriptions: New clindamycin HCl [Cleocin HCl] 300 mg capsule 300 mg PO Q6H Qty: 40 0RF No Action clonazepam 1 MG tablet 1 mg PO BID omeprazole 20 MG tablet,disintegrat, delay rel 20 mg PO QHS buprenorphine HCl 8 MG tablet, sublingual 8 mg SL BID Rx Instructions: MORNING AND 4PM albuterol sulfate 1 PUFF inhaler 1 - 2 puff IH Q4H PRN PRN (Reason: Wheezing) Label Comments: Inhale 2 Puffs as instructed every 4 hours as needed. lamotrigine [Lamictal] 200 mg Tablet 200 mg PO DAILY citalopram [Celexa] 40 mg Tablet 80 mg PO DAILY Zyrtec 10 mg capsule 10 mg PO DAILY Qty: 14 0RF ibuprofen 600 MG tablet 600 mg PO Q8H PRN PRN (Reason: pain) Qty: 20 0RF ibuprofen 600 MG tablet 600 mg PO Q6H PRN PRN (Reason: pain) Qty: 20 0RF sulfamethoxazole-trimethoprim [sulfamethoxazole-trimethoprim] 1 TABLET tablet 1 tab PO BID Qty: 20 0RF metoclopramide HCl [metoclopramide HCl] 10 MG tablet 10 mg PO Q6H PRN (Reason: nausea and vomiting) Qty: 20 0RF sulfamethoxazole-trimethoprim [sulfamethoxazole-trimethoprim] 1 TABLET tablet 1 tab PO BID Qty: 20 0RF Primary Care Provider: Contreras Preston Referrals: Contreras Preston MD [Primary Care Provider] - Disposition Disposition: Elopement Discharge Date/Time: 02/24/22 19:00
[2022-02-24] MEDS: Clindamycin HCl 150 MG Capsule 300 MG PO (18:40)
[2022-02-24 18:54] LABS: Absolute Lymphocyte Count 1.45 X10^3/uL (0.83-4.51); Absolute Neutrophil Count 5.7 X10^3/uL (2.0-7.7); Basophil# 0.03 X10^3/uL; Basophil% 0.4 % (0-1); Eosinophil# 0.11 X10^3/uL; Eosinophils% 1.4 % (0-5); Hematocrit 33.2 % (37-47); Hemoglobin 11.4 g/dL (12.0-15.0); Lymphocyte # 1.45 X10^3/ul (0.83-4.51); Lymphocyte % 18.3 % (19-41); Mean Corp Hgb Conc 34.3 g/dL (32-36); Mean Corpuscular Hgb 31.5 pg (27.0-32.0); Mean Corpuscular Volume 91.7 fL (81-99); Mean Platelet Vol. 9.2 fl (6.2-12.0); Monocyte# 0.61 X10^3/uL; Monocyte% 7.7 % (0-10); NRBC Flagged by Analyzer 0 % (0-5); Neutrophil # 5.71 X10^3/uL (2.7-7.7); Neutrophil % 71.8 % (47-70); Platelet Count 264 K/mm3 (150-450); RBC Distribution Width CV 13.5 % (11.6-14.6); RBC Distribution Width SD 45.2 fl (35.1-43.9); Red Blood Count 3.62 M/mm3 (4.2-5.4); White Blood Count 7.9 K/mm3 (4.4-11.0)
--- NOTE | 2022-02-24 18:55 | ED.RN ---
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 IV WAS REMOVED. INFORMED PHYSICIAN AND LET PT KNOW PHYSICIAN WILL SEND ANTIBIOTICS TO PHARMACY. PT REQUESTED THAT REGLAN BE SENT WELL. TOLD PT ANTIBIOTIC WAS THE ONLY THING I WAS AWARE OF. PT STATED THANK YOU AND THEN AMBULATED FROM ED
[2022-02-24 19:11] LABS: Anion Gap 7 (5-15); BUN 10 mg/dL (7-18); BUN/Creat Ratio 19.4 RATIO (10-20); Calcium,Total 8.7 mg/dL (8.5-10.1); Chloride 112 mmol/L (98-107); Creatinine, Serum 0.52 mg/dL (0.55-1.02); EST Glomerular Filtration Rate 150 mL/min (>60); Est Glom Filt Rate - Afr Amer 181 mL/min (>60); Estimated Creatinine Clearance 120.46 ml/min; Glucose 96 mg/dL (74-106); Potassium 3.2 mmol/L (3.5-5.1); Sodium Level 142 mmol/L (136-145)
== END 2022-02-24 19:00 | disposition left against medical advice (07) ==
PROVIDERS: Emergency Provider Emergency Medicine; PCP Internal Medicine; Visit Provider Emergency Medicine
DX: L03.116 Cellulitis of left lower limb (principal); F20.9 Schizophrenia, unspecified; G40.909 Epilepsy, unspecified, not intractable, without status epilepticus; L03.115 Cellulitis of right lower limb; F17.210 Nicotine dependence, cigarettes, uncomplicated; Z87.820 Personal history of traumatic brain injury; Z79.899 Other long term (current) drug therapy; E87.6 Hypokalemia; H60.12 Cellulitis of left external ear; S91.301A Unspecified open wound, right foot, initial encounter; S91.302A Unspecified open wound, left foot, initial encounter
CPT/HCPCS: 80048; 85025; 99282

== ENCOUNTER 2022-05-12 14:32 | Emergency (ER) | payer MEDICARE, MEDICAID, SELFPAY ==
[2022-05-12 14:33] VITALS: BP 104/79; PULSE 81; RESP 16; TEMP 35.2; O2SAT 98; BMI 23.6
--- NOTE | 2022-05-12 19:07 | EX.ED.DYSGE1 ---
HPI History of Present Illness Chief Complaint: Abscess Informant: patient Narrative Narrative: 31-year-old female presenting with right arm abscess. Patient has a history of multiple abscess in the past. She states she usually tries to drain these at home but was unable to reach this abscess as it is on the back of her right arm. She did note some draining just prior to arrival. She had a fever yesterday but no fever today. No other complaints. History of previous heroin use, has not used in 8 years. Prior similar symptoms: Yes Recent Illness/Hospitalization: No PFSH PFSH Medical History Hypoglycemia IVDU (intravenous drug user) Schizoaffective disorder Seizures TBI (traumatic brain injury) Home Medications clonazepam 1 mg tablet 1 mg PO BID SEIZURES 06/11/17 [History Last Taken 10/08/18] buprenorphine HCl 8 mg sublingual tablet 8 mg SL BID 01/20/19 [History Last Taken Unknown] albuterol sulfate 90 mcg/actuation aerosol inhaler 1 - 2 puff IH Q4H PRN PRN Wheezing 07/03/19 [History Last Taken Unknown] cetirizine 10 mg capsule (Zyrtec) 10 mg PO DAILY #14 caps 01/01/21 [Rx Last Taken Unknown] citalopram 40 mg tablet (Celexa) 80 mg PO DAILY 01/01/21 [History Last Taken Unknown] lamotrigine 200 mg tablet (Lamictal) 200 mg PO DAILY 01/01/21 [History Last Taken Unknown] cephalexin 500 mg capsule 500 mg PO Q6 #40 CAPSULES 05/12/22 [Rx Last Taken Unknown] doxycycline hyclate 100 mg capsule 100 mg PO BID 7 days #14 caps 05/12/22 [Rx Last Taken Unknown] Allergy/AdvReac Type Severity Reaction Status Date / Time ampicillin sodium Allergy Swelling Verified 05/12/22 14:34 [From Unasyn] egg Allergy Unknown Verified 05/12/22 14:34 Penicillins Allergy Swelling Verified 05/12/22 14:34 sulbactam sodium Allergy Swelling Verified 05/12/22 14:34 [From Unasyn] red dye AdvReac Nausea Verified 05/12/22 14:34 Social History household members: significant other Smoking Status: Current every day smoker tobacco type: cigarettes alcohol intake: former substance use type: former substance user and opiates ROS ROS ED Constitutional Constitutional ED: Reports fever(s) Eyes Eyes: Denies change in vision ENT ENT ED: Denies rhinorrhea or sore throat Cardiovascular Cardiovascular: Denies chest pain or palpitations Respiratory/Chest Respiratory/Chest: Denies cough or dyspnea Gastrointestinal Gastrointestinal: Denies abdominal pain, diarrhea, nausea or vomiting Genitourinary Genitourinary ED: Denies dysuria Musculoskeletal Musculoskeletal: Denies myalgias Integumentary Reports abscess; Denies rash Neurologic Neurologic: Denies headache(s) Psychiatric Psychiatric: Denies suicidal thoughts EXAM Physical Exam Const Vital Signs: 05/12/22 14:33 Temperature 95.4 F L Temperature Source Temporal Pulse Rate 81 Respiratory Rate 16 Blood Pressure 104/79 Blood Pressure Mean 87 Pulse Ox 98 Oxygen Delivery Method Room Air Positive well nourished and well developed General Appearance ED: well developed HEENT Reports normocephalic and head/scalp atraumatic Eyes PERRL and EOMs intact bilaterally Neck supple General: Negative for tenderness Chest Wall inspection of chest normal Resp normal respiratory effort and clear to auscultation bilaterally Cardio regular rate and regular rhythm GI non-tender and non-distended Palpation: soft; Negative for guarding or rebound tenderness present no CVA tenderness Extremity Extremity Narrative: Right upper extremity abscess with fluctuance and induration proximal to right elbow. Active full range of motion of elbow. Surrounding erythema. Neurovascularly intact distally. Neuro oriented x3 Sensorium / Orientation: alert Psych mental status grossly normal Skin Skin Narrative: abscess, see above MDM MDM MDM Narrative Medical decision making narrative: I&D was performed. Anesthetized with lidocaine. Incised with 11 blade. Moderate amount of pus was drained. Irrigated with saline. Probed to break up loculations. Dressing was applied. Patient was advised signs and symptoms for which to return to the ED. She is given prescription for doxycycline and Keflex. Advised to follow-up with primary care physician. Discharge Plan Triage Chief Complaint: Abscess ED Provider: Althea Cloud Dx/Rx/DC Orders Clinical Impression: Abscess of right upper extremity Instructions: ED Abscess Incision And Drainage Prescriptions: New doxycycline hyclate 100 mg capsule 100 mg PO BID 7 Days Qty: 14 0RF cephalexin 500 mg capsule 500 mg PO Q6 Qty: 40 0RF No Action clonazepam 1 MG tablet 1 mg PO BID buprenorphine HCl 8 MG tablet, sublingual 8 mg SL BID Rx Instructions: MORNING AND 4PM albuterol sulfate 1 PUFF inhaler 1 - 2 puff IH Q4H PRN PRN (Reason: Wheezing) Label Comments: Inhale 2 Puffs as instructed every 4 hours as needed. lamotrigine [Lamictal] 200 mg Tablet 200 mg PO DAILY citalopram [Celexa] 40 mg Tablet 80 mg PO DAILY Zyrtec 10 mg capsule 10 mg PO DAILY Qty: 14 0RF Primary Care Provider: Contreras Preston Referrals: Contreras Preston MD [Primary Care Provider] - Disposition Disposition: Home, Self Care
[2022-05-12] MEDS: Lidocaine 1% (20 ml mdv) 20 ML Vial INFILT (19:12)
[2022-05-12] MEDS: Doxycycline 100 MG CAPSULE PO (19:12)
[2022-05-12] MEDS: Ondansetron ODT 4 MG Tablet PO (19:13)
[2022-05-12] MEDS: Cephalexin 250 MG Capsule 500 MG PO (19:13)
[2022-05-12 19:35] VITALS: RESP 14
== END 2022-05-12 19:36 | disposition home or self-care (01) ==
PROVIDERS: Emergency Provider Emergency Medicine; PCP Internal Medicine; Visit Provider Emergency Medicine
DX: L02.413 Cutaneous abscess of right upper limb (principal); F17.210 Nicotine dependence, cigarettes, uncomplicated
CPT/HCPCS: 10060; 99283

== ENCOUNTER 2022-07-01 13:36 | Emergency (ER) | payer MEDICARE, MEDICAID, SELFPAY ==
[2022-07-01 13:37] VITALS: BP 106/62; PULSE 85; RESP 14; TEMP 36.4; O2SAT 95; BMI 22.8
[2022-07-01 13:43] VITALS: O2SAT 95
[2022-07-01 13:44] VITALS: BP 106/62; PULSE 70; RESP 14; TEMP 36.4; O2SAT 95
--- NOTE | 2022-07-01 14:04 | RAD_ITS ---
EXAM: XR CHEST, 2 VIEWS CLINICAL INDICATION: pleuritic left upper back pain TECHNIQUE: Frontal and lateral views of the chest. This report was created using centrose report generation technology. COMPARISON: 11.26.17 FINDINGS: LUNGS AND PLEURAL SPACES: Unremarkable. No consolidation or edema. No pneumothorax. No effusion. HEART: Unremarkable. Cardiac silhouette not enlarged. MEDIASTINUM: Central airways and mediastinal contour are unremarkable. BONES/JOINTS: Unremarkable. SOFT TISSUES: Unremarkable. RAD/Chest PA and Lateral IMPRESSION: No radiographic evidence of acute cardiopulmonary disease. Electronically Signed: Josue Denny MD at 14:42 EST ,
--- NOTE | 2022-07-01 14:06 | ED.VIS.DYS ---
HPI History of Present Illness Chief Complaint: Shortness of Breath Informant: patient Narrative Narrative: Patient presents with 2 to 3 days of pain in her right mid-upper back, she thinks it is more in her ribs than her lung but it hurts to breathe, it also hurts to move. It is improved with ibuprofen, and she can move around more freely with less pain. She denies any true dyspnea but states that it has been a little hard to breathe just because of the pain when she tried to take a deep breath. She denies any pain in her chest. She had a tracheostomy that was removed remotely, and as a result of that she chronically clears her throat which is harder than usual due to this pain, but she does not really have an acute cough. She denies any fevers or chills. She states I am getting over strep throat and by that she means she has had a sore throat that she thinks was associated with exudates and this past week, she did not present to have it evaluated, it is getting better and she has no more exudates, she associates this with episodes of strep throat in the past, but she did not present to anyone for treatment and she has not taken any antibiotics in the past week. While she has had a very raw sore throat with odynophagia and this past week, she cleared her throat once and a small streak of blood came out with it. She denies any neck pain or stiffness or headaches here. She denies any obvious reason for her pain in the right back such as trauma, fall, lifting something heavy/muscle strain, etc. She denies any recent long travel, leg pain or swelling, or recent hospitalization/surgery. She did have a blood clot remotely that was associated with and she was treated with anticoagulations that she has been off of for a long time. She states she was at urgent care today and was sent here. [facility] Medical History Hypoglycemia IVDU (intravenous drug user) Schizoaffective disorder Seizures TBI (traumatic brain injury) Home Medications clonazepam 1 mg tablet 1 mg PO BID SEIZURES 06/11/17 [History Last Taken 10/08/18] buprenorphine HCl 8 mg sublingual tablet 8 mg SL BID 01/20/19 [History Last Taken Unknown] albuterol sulfate 90 mcg/actuation aerosol inhaler 1 - 2 puff IH Q4H PRN PRN Wheezing 07/03/19 [History Last Taken Unknown] cetirizine 10 mg capsule (Zyrtec) 10 mg PO DAILY #14 caps 01/01/21 [Rx Last Taken Unknown] citalopram 40 mg tablet (Celexa) 80 mg PO DAILY 01/01/21 [History Last Taken Unknown] lamotrigine 200 mg tablet (Lamictal) 200 mg PO DAILY 01/01/21 [History Last Taken Unknown] cephalexin 500 mg capsule 500 mg PO Q6 #40 CAPSULES 05/12/22 [Rx Last Taken Unknown] doxycycline hyclate 100 mg capsule 100 mg PO BID 7 days #14 caps 05/12/22 [Rx Last Taken Unknown] Allergy/AdvReac Type Severity Reaction Status Date / Time ampicillin sodium Allergy Swelling Verified 07/01/22 13:43 [From Unasyn] egg Allergy Unknown Verified 07/01/22 13:43 Penicillins Allergy Swelling Verified 07/01/22 13:43 sulbactam sodium Allergy Swelling Verified 07/01/22 13:43 [From Unasyn] red dye AdvReac Nausea Verified 07/01/22 13:43 Surgical History (Updated 07/01/22 @ 13:46 by Pretty Damico) S/P tracheoplasty Social History household members: significant other Smoking Status: Current every day smoker tobacco type: cigarettes alcohol intake: former substance use type: former substance user and opiates ROS ROS ED Constitutional Constitutional ED: Denies chills or fever(s) Eyes Eyes: Denies change in vision or diplopia ENT ENT ED: Reports as per HPI and sore throat; Denies ear pain or rhinorrhea Cardiovascular Cardiovascular: Denies chest pain, leg edema or palpitations Respiratory/Chest Respiratory/Chest: Denies cough or dyspnea Gastrointestinal Gastrointestinal: Denies abdominal pain, diarrhea, nausea or vomiting Genitourinary Genitourinary ED: Denies dysuria or hematuria Musculoskeletal Musculoskeletal: Reports as per HPI and back pain; Denies myalgias or neck pain Integumentary Denies abscess or rash Neurologic Neurologic: Denies headache(s), paresthesias or weakness Psychiatric Psychiatric: Denies anxiety or suicidal thoughts EXAM Physical Exam Const Vital Signs: 07/01/22 13:37 07/01/22 13:43 07/01/22 13:44 Temperature 97.6 F L 97.6 F L Temperature Source Oral Oral Pulse Rate 85 70 Respiratory Rate 14 14 Respiratory Effort Short of Breath Respiratory Depth Normal Respiratory Pattern Normal Blood Pressure 106/62 106/62 Blood Pressure Mean 76 76 Pulse Ox 95 95 Oxygen Delivery Method Room Air Room Air Room Air 07/01/22 15:17 Temperature Temperature Source Pulse Rate 74 Respiratory Rate 18 Respiratory Effort Respiratory Depth Respiratory Pattern Blood Pressure Blood Pressure Mean Pulse Ox 95 Oxygen Delivery Method Positive well nourished and well developed General Appearance ED: well developed and NAD HEENT Reports moist mucous membranes HEENT Narrative: Posterior oropharyngeal erythema with evidence of postnasal drip without any tonsillar abnormality/asymmetry/exudates or palatal petechia. No trismus. Normal tongue. normocephalic and atraumatic Eyes PERRL and EOMs intact bilaterally Neck full ROM, no lymphadenopathy, supple and no meningeal signs Resp normal respiratory effort and clear to auscultation bilaterally Cardio regular rate, regular rhythm and no murmurs Rate: Negative for tachycardic Back/Spine no CVA tenderness Back/Spine Narrative: Tender to palpation in the right mid posterior lateral ribs and intercostal spaces, reproducing the patient's pain. No crepitance or step-off or rash. General Back: other FROM Extremity normal to inspection and no calf tenderness General Extremety ED: Negative for edema, pulses abnormal or tenderness General Extremity: Negative for edema or pulses abnormal Neuro oriented x3, CN's II-XII intact bilaterally and no sensory deficits noted Sensorium / Orientation: awake and alert Motor Exam: strength 5/5 throughout Skin no rashes or lesions noted and no wounds MDM MDM MDM Narrative Medical decision making narrative: I briefly discussed the differential here with the patient and my suspicion that this is musculoskeletal in etiology, she thinks that it feels that way as well. She was just concerned that she did not have an obvious reason for it. Technically, she has a PERC score of 0. She has not been coughing up blood, she does not have a cough, the small amount of blood that she spat out I agree probably came from her throat and doubtful that it came from her lungs and she is really not coughing. She does not have signs or symptoms of a DVT in her legs right now, and we discussed the possibility of going down the pathway of ruling out thromboembolic disease, and she really does not want to do that today and I think that is fine given that her vital signs are normal and her PERC score is 0. We obtained a two-view chest x-ray, it is negative, I offered her something for pain she wanted Tylenol which was given, supportive care advised close outpatient follow-up or returning if she gets worse as recommended. Radiography Diagnostic Testing: Clinical Impression(s) from Imaging Studies Chest X-Ray 07/01/22 14:04 IMPRESSION: No radiographic evidence of acute cardiopulmonary disease. Electronically Signed: Josue Denny MD at 14:42 EST , Discharge Plan Triage Chief Complaint: Shortness of Breath ED Provider: Jf Severino Dx/Rx/DC Orders Clinical Impression: Rib pain on right side Instructions: ED Chest Wall Pain, Costochondritis Prescriptions: No Action clonazepam 1 MG tablet 1 mg PO BID buprenorphine HCl 8 MG tablet, sublingual 8 mg SL BID Rx Instructions: MORNING AND 4PM albuterol sulfate 1 PUFF inhaler 1 - 2 puff IH Q4H PRN PRN (Reason: Wheezing) Label Comments: Inhale 2 Puffs as instructed every 4 hours as needed. lamotrigine [Lamictal] 200 mg Tablet 200 mg PO DAILY citalopram [Celexa] 40 mg Tablet 80 mg PO DAILY Zyrtec 10 mg capsule 10 mg PO DAILY Qty: 14 0RF doxycycline hyclate 100 mg capsule 100 mg PO BID 7 Days Qty: 14 0RF cephalexin 500 mg capsule 500 mg PO Q6 Qty: 40 0RF Primary Care Provider: Contreras Preston Referrals: Contreras Preston MD [Primary Care Provider] - 1 Week if not improving Disposition Disposition: Home, Self Care Discharge Date/Time: 07/01/22 15:18
[2022-07-01] MEDS: Acetaminophen 500 MG Tablet 1000 MG PO (14:23)
[2022-07-01 15:17] VITALS: PULSE 74; RESP 18; O2SAT 95
== END 2022-07-01 15:18 | disposition home or self-care (01) ==
PROVIDERS: Emergency Provider Emergency Medicine; PCP Internal Medicine; Visit Provider Emergency Medicine
DX: R07.81 Pleurodynia (principal); R06.02 Shortness of breath; F17.210 Nicotine dependence, cigarettes, uncomplicated
CPT/HCPCS: 71046; 99282

== ENCOUNTER → 2022-09-12 | Outpatient (CLI) | payer MEDICARE, MEDICAID, SELFPAY ==
--- NOTE | 2022-09-12 18:01 | EKG12_ITS ---
Test Reason : MED CLEARANCE Blood Pressure : / mmHG Vent. Rate : 065 BPM Atrial Rate : 065 BPM P-R Int : 120 ms QRS Dur : 090 ms QT Int : 378 ms P-R-T Axes : 081 069 023 degrees QTc Int : 393 ms Normal sinus rhythm Normal ECG When compared with ECG of 26-NOV-2017 00:17, No significant change was found Confirmed by KATIA WILL, GAUTAM ([id number]), staff editor LUIS F PULIDO ([id number]) on 09/18/2022 10:47:34 AM Referred By: IZAIAH TALLEY Confirmed By:GAUTAM MONTALVO MD
== END | disposition home or self-care (01) ==
PROVIDERS: PCP Internal Medicine
DX: R53.82 Chronic fatigue, unspecified (principal); F41.1 Generalized anxiety disorder; F41.0 Panic disorder [episodic paroxysmal anxiety]
CPT/HCPCS: 93005

== ENCOUNTER 2023-09-26 19:13 | Emergency (ER) | payer MEDICARE, MEDICAID, SELFPAY ==
[2023-09-26 19:15] VITALS: BP 118/76; PULSE 72; RESP 20; TEMP 36.4; O2SAT 96; BMI 23.6
--- NOTE | 2023-09-26 19:34 | EX.ED.DYSGE1 ---
HPI History of Present Illness Chief Complaint: Abscess Informant: patient Narrative Narrative: Concerns for abscess left lateral ankle progress over 2 days. No fevers. History of multiple abscesses. Records note remote history of IV drug use. She denies any recent IV drug use.. Denies diabetes history.Reports allergy to penicillin causing swelling. [facility] Medical History Hypoglycemia IVDU (intravenous drug user) Schizoaffective disorder Seizures TBI (traumatic brain injury) Home Medications clonazepam 1 mg tablet 1 mg PO BID SEIZURES 06/11/17 [History Last Taken 10/08/18] buprenorphine HCl 8 mg sublingual tablet 8 mg SL BID 01/20/19 [History Last Taken Unknown] cetirizine 10 mg capsule (Zyrtec) 10 mg PO DAILY #14 caps 01/01/21 [Rx Last Taken Unknown] citalopram 40 mg tablet (Celexa) 80 mg PO DAILY 01/01/21 [History Last Taken Unknown] lamotrigine 200 mg tablet (Lamictal) 200 mg PO DAILY 01/01/21 [History Last Taken Unknown] cephalexin 500 mg capsule 500 mg PO Q6 #40 CAPSULES 05/12/22 [Rx Last Taken Unknown] doxycycline hyclate 100 mg capsule 100 mg PO BID 7 days #14 caps 05/12/22 [Rx Last Taken Unknown] ibuprofen 600 mg tablet 600 mg PO Q6H PRN PRN pain #20 TABLETS 09/26/23 [Rx Last Taken Unknown] ondansetron 4 mg disintegrating tablet 4 mg PO Q8H PRN PRN Nausea #10 tabs 09/26/23 [Rx Last Taken Unknown] sulfamethoxazole 800 mg-trimethoprim 160 mg tablet (Bactrim DS) 1 tab PO BID #14 tabs 09/26/23 [Rx Last Taken Unknown] Allergy/AdvReac Type Severity Reaction Status Date / Time ampicillin sodium Allergy Swelling Verified 07/01/22 13:43 [From Unasyn] egg Allergy Unknown Verified 07/01/22 13:43 Penicillins Allergy Swelling Verified 07/01/22 13:43 sulbactam sodium Allergy Swelling Verified 07/01/22 13:43 [From Unasyn] red dye AdvReac Nausea Verified 07/01/22 13:43 Surgical History S/P tracheoplasty Social History household members: significant other Smoking Status: Current every day smoker tobacco type: cigarettes alcohol intake: former substance use type: former substance user and opiates ROS ROS ED Constitutional Constitutional ED: Denies chills, fever(s) or sweats Eyes Eyes: Denies change in vision ENT ENT ED: Denies dysphagia or sore throat Cardiovascular Cardiovascular: Denies chest pain, leg edema, palpitations or racing heartbeat Respiratory/Chest Respiratory/Chest: Denies cough, dyspnea or dyspnea on exertion Gastrointestinal Gastrointestinal: Denies abdominal pain, diarrhea, nausea or vomiting Genitourinary Genitourinary ED: Denies dysuria, hematuria or urinary frequency Musculoskeletal Musculoskeletal: Denies back pain, extremity pain or neck pain Integumentary Reports abscess; Denies rash or wounds Neurologic Neurologic: Denies headache(s), paresthesias or weakness EXAM Physical Exam Const Vital Signs: 09/26/23 19:15 09/26/23 20:26 09/26/23 20:26 Temperature 97.6 F L 98.7 F 98.7 F Temperature Source Temporal Temporal Pulse Rate 72 89 89 Respiratory Rate 20 H 18 18 Blood Pressure 118/76 120/71 120/70 Blood Pressure Mean 90 87 86 Pulse Ox 96 97 97 Oxygen Delivery Method Room Air Room Air Positive well nourished and well developed General Appearance ED: well developed and NAD HEENT Reports moist mucous membranes normocephalic and atraumatic Eyes PERRL, EOMs intact bilaterally and conjunctivae normal General Eye ED: Yes normal appearance of both eyes Neck no lymphadenopathy and supple General: Negative for tenderness Chest Wall Chest: Negative for tenderness Resp normal respiratory effort and normal air movement Effort and Inspection: symmetric chest movement; Negative for respiratory distress Cardio regular rate, regular rhythm and no murmurs Peripheral Pulses: pulses 2+ throughout GI normal to inspection, nondistended, normoactive bowel sounds and non-tender Palpation: Negative for guarding or rebound tenderness present Back/Spine no CVA tenderness and no thoracic nor lumbar tenderness Extremity Extremity Narrative: Left lower extremity: Posterior to lateral malleolus 2 and half centimeter fluctuance, there is surrounding erythema approximately 4 cm. No streaking up the leg. No active drainage. There is healing scab dorsal foot times two 1 cm in size. General Extremety ED: Yes tenderness Neuro oriented x3 and no sensory deficits noted Sensorium / Orientation: awake and alert Skin no rashes or lesions noted and no wounds MDM MDM MDM Narrative Medical decision making narrative: Interventions / MDM: Differential diagnosis: Abscess, cellulitis Diagnosis considered but do not suspect: N/A My EKG interpretation: N/A Imaging independently reviewed and interpreted by myself: N/A External documents reviewed: N/A Test considered but not ordered:N/A ED course: Nontoxic fluctuance lateral malleolus. Discussed incision and drainage which she agreed. Performed with exudative drainage. NSAIDs and Bactrim started with exudative drainage. Outpatient follow-up with return precautions. Procedure note: Verbal consent. Normal sterile conditions. Skin was prepped cleanse by nursing staff. Alcohol prep of the lesion, 1% lidocaine without epinephrine total of 4 cc used for local analgesia. 11 blade a cruciate incision loculations broken with hemostats. Copious flushing with normal saline. Dressing was placed by nursing. Patient tolerated procedure well. Re-evaluation: stable Disposition discussed with patient/family/significant other: Patient Case discussed with consulting clinician: N/A This note was generated with [employer] dictation software. It may contain incorrect words, spelling, and punctuation that were not noted in checking the note before signing. Discharge Plan Triage Chief Complaint: Abscess ED Provider: Maximilian Huggins Dx/Rx/DC Orders Clinical Impression: Abscess of skin of left ankle, Encounter for incision and drainage procedure Instructions: ED Abscess Incision And Drainage Prescriptions: New sulfamethoxazole-trimethoprim [Bactrim DS] 800-160 mg tablet 1 tab PO BID Qty: 14 0RF ibuprofen 600 mg tablet 600 mg PO Q6H PRN PRN (Reason: pain) Qty: 20 0RF ondansetron [ondansetron] 4 mg tablet,disintegrating 4 mg PO Q8H PRN PRN (Reason: Nausea) Qty: 10 0RF No Action clonazepam 1 MG tablet 1 mg PO BID buprenorphine HCl 8 MG tablet, sublingual 8 mg SL BID Rx Instructions: MORNING AND 4PM lamotrigine [Lamictal] 200 mg Tablet 200 mg PO DAILY citalopram [Celexa] 40 mg Tablet 80 mg PO DAILY Zyrtec 10 mg capsule 10 mg PO DAILY Qty: 14 0RF doxycycline hyclate 100 mg capsule 100 mg PO BID 7 Days Qty: 14 0RF cephalexin 500 mg capsule 500 mg PO Q6 Qty: 40 0RF Primary Care Provider: Contreras Preston Referrals: Contreras Preston MD [Primary Care Provider] - 3-5 Days Activity Restrictions/Additional Instructions: Your abscess was drained in the ED. Take and finish antibiotic as prescribed. Follow-up your doctor. Return if any worsening symptoms. Disposition Disposition: Home, Self Care Discharge Date/Time: 09/26/23 20:29
[2023-09-26] MEDS: Smz/Tmp Ds Tablet 1 TABLET PO (20:22)
[2023-09-26] MEDS: Ibuprofen 600 MG Tablet PO (20:22)
[2023-09-26] MEDS: Lidocaine 1% (20 ml mdv) 20 ML Vial INFILT (20:23)
[2023-09-26] MEDS: Ondansetron ODT 4 MG Tablet PO (20:23)
[2023-09-26 20:26] VITALS: BP 120/70; BP 120/71; PULSE 89; RESP 18; TEMP 37.1; O2SAT 97
== END 2023-09-26 20:29 | disposition home or self-care (01) ==
PROVIDERS: Emergency Provider Emergency Medicine; PCP Internal Medicine; Visit Provider Emergency Medicine
DX: L02.416 Cutaneous abscess of left lower limb (principal); R56.9 Unspecified convulsions; Z79.899 Other long term (current) drug therapy; F17.210 Nicotine dependence, cigarettes, uncomplicated
CPT/HCPCS: 10060; 99283

== ENCOUNTER 2023-11-16 17:31 | Emergency (ER) | payer MEDICARE, MEDICAID, SELFPAY ==
[2023-11-16 17:33] VITALS: BP 111/101; PULSE 67; PULSE 71; RESP 14; RESP 16; TEMP 36.6; O2SAT 97; BMI 24.2
--- NOTE | 2023-11-16 18:28 | EDS_ITS ---
HPI HPI - URI History of Present Illness Chief Complaint: Sore Throat Informant: patient Narrative Narrative: Patient 33-year-old female with history of bronchitis, dental abscess and prior tracheal reconstruction presenting for sore throat as well as dental pain. Does report chills but no fevers. Has had some associated headache. States that she has had most of her teeth pulled but her wisdom tooth on the right lower side he came in but is infected. Has been causing increased pain. She also notes that she has had worsening cough and sore throat and is worried she may be has strep. Did not take any for symptoms prior to arrival. Denies any chest pain, difficulty breathing, rash or other complaints at this time. ROS ROS ED Constitutional Constitutional ED: Denies chills or fever(s) Eyes Eyes: Denies change in vision ENT ENT ED: Reports sore throat and other Details: Right lower dental pain Cardiovascular Cardiovascular: Denies chest pain Respiratory/Chest Respiratory/Chest: Denies cough or dyspnea Gastrointestinal Gastrointestinal: Denies vomiting Integumentary Denies rash [facility] Medical History IVDU (intravenous drug user) Hypoglycemia Seizures Schizoaffective disorder TBI (traumatic brain injury) Home Medications ?Medication ?Instructions ?Recorded ?Last Taken ?Type clonazepam 1 mg tablet 1 mg PO BID SEIZURES 06/11/17 10/08/18 History buprenorphine HCl 8 mg sublingual 8 mg SL BID 01/20/19 Unknown History tablet cetirizine 10 mg capsule (Zyrtec) 10 mg PO DAILY #14 caps 01/01/21 Unknown Rx citalopram 40 mg tablet (Celexa) 80 mg PO DAILY 01/01/21 Unknown History lamotrigine 200 mg tablet 200 mg PO DAILY 01/01/21 Unknown History (Lamictal) cephalexin 500 mg capsule 500 mg PO Q6 #40 CAPSULES 05/12/22 Unknown Rx doxycycline hyclate 100 mg capsule 100 mg PO BID 7 days #14 caps 05/12/22 Unknown Rx ibuprofen 600 mg tablet 600 mg PO Q6H PRN PRN pain #20 09/26/23 Unknown Rx TABLETS ondansetron 4 mg disintegrating 4 mg PO Q8H PRN PRN Nausea #10 tabs 09/26/23 Unknown Rx tablet sulfamethoxazole 800 1 tab PO BID #14 tabs 09/26/23 Unknown Rx mg-trimethoprim 160 mg tablet (Bactrim DS) cefdinir 300 mg capsule 300 mg PO BID #20 caps 11/16/23 Unknown Rx Allergy/AdvReac Type Severity Reaction Status Date / Time ampicillin sodium (From Allergy Swelling Verified 11/16/23 17:35 Unasyn) egg Allergy Unknown Verified 11/16/23 17:35 Penicillins Allergy Swelling Verified 11/16/23 17:35 sulbactam sodium (From Allergy Swelling Verified 11/16/23 17:35 Unasyn) red dye AdvReac Nausea Verified 11/16/23 17:35 Surgical History S/P tracheoplasty Social History household members: significant other Smoking Status: Current every day smoker tobacco type: cigarettes alcohol intake: former substance use type: former substance user and opiates EXAM Physical Exam Const Vital Signs: 11/16/23 17:33 11/16/23 17:33 Temperature 97.8 F Temperature Source Temporal Pulse Rate 67 71 Respiratory Rate 14 16 Blood Pressure 111/101 H 111/101 H Blood Pressure Mean 104 104 Pulse Ox 97 97 Oxygen Delivery Method Room Air Room Air Positive well nourished and well developed General Appearance ED: well developed and NAD HEENT Reports moist mucous membranes HEENT Narrative: Uvula is midline. Normal phonation. Mild injection of the oropharynx present. No tonsillar edema or exudates appreciated. Patient is edentulous but does have evidence of of remnant of an eroded tooth where the right lower wisdom tooth likely would be that has caries present. I do not appreciate any associated abscess but is mildly tender to palpation. Sublingual mucosa is soft. normocephalic and atraumatic Eyes PERRL Resp normal respiratory effort and clear to auscultation bilaterally Cardio Rate: regular rate Rhythm: regular rhythm Neuro oriented x3 Sensorium / Orientation: alert Motor Exam: Negative for general weakness Psych mental status grossly normal Skin Rashes: no rashes MDM MDM MDM Narrative Medical decision making narrative: Patient is evaluated for dental pain as well as sore throat. Suspect the sore throat is viral in nature versus allergic. No signs of allergic reaction or strep pharyngitis or peritonsillar abscess on physical exam. Likely also has a start of a dental infection given her increased pain and eroded/carried tooth. Will place on Omnice[employer] given that she has an allergy to penicillins but is previously tolerated cephalosporins in the past (found on chart review) and this will cover for dental infection as well as strep throat. Patient agreeable this plan of care. Instructed alternate ibuprofen and Tylenol as needed for fever and pain control. Given return precautions. Encouraged follow-up with dentist. Discharged home in stable condition. Discharge Plan Triage Chief Complaint: Sore Throat ED Provider: Анна Chan Dx/Rx/DC Orders Clinical Impression: Acute sore throat, Dentalgia Instructions: ED Dental Pain, ED Pharyngitis, Viral Prescriptions: New cefdinir 300 mg capsule 300 mg PO BID Qty: 20 0RF No Action clonazepam 1 MG tablet 1 mg PO BID buprenorphine HCl 8 MG tablet, sublingual 8 mg SL BID Rx Instructions: MORNING AND 4PM lamotrigine [Lamictal] 200 mg Tablet 200 mg PO DAILY citalopram [Celexa] 40 mg Tablet 80 mg PO DAILY Zyrtec 10 mg capsule 10 mg PO DAILY Qty: 14 0RF doxycycline hyclate 100 mg capsule 100 mg PO BID 7 Days Qty: 14 0RF cephalexin 500 mg capsule 500 mg PO Q6 Qty: 40 0RF sulfamethoxazole-trimethoprim [Bactrim DS] 800-160 mg tablet 1 tab PO BID Qty: 14 0RF ibuprofen 600 mg tablet 600 mg PO Q6H PRN PRN (Reason: pain) Qty: 20 0RF ondansetron [ondansetron] 4 mg tablet,disintegrating 4 mg PO Q8H PRN PRN (Reason: Nausea) Qty: 10 0RF Primary Care Provider: Contreras Preston Referrals: Contreras Preston MD [Primary Care Provider] - Activity Restrictions/Additional Instructions: Take antibiotics as prescribed. You may alternate ibuprofen and Tylenol as needed. Follow-up with your dentist please. Print Language: Tanzanian Disposition Disposition: Home, Self Care
[2023-11-16] MEDS: Cefdinir 300 MG Capsule PO (18:35)
== END 2023-11-16 18:51 | disposition home or self-care (01) ==
PROVIDERS: Emergency Provider Emergency Medicine; PCP Internal Medicine; Visit Provider Emergency Medicine
DX: J02.9 Acute pharyngitis, unspecified (principal); K08.89 Other specified disorders of teeth and supporting structures; F17.210 Nicotine dependence, cigarettes, uncomplicated
CPT/HCPCS: 99282

== ENCOUNTER 2023-12-23 21:41 | Emergency (ER) | payer MEDICARE, MEDICAID, SELFPAY ==
[2023-12-23 21:43] VITALS: BP 183/137; PULSE 77; RESP 18; TEMP 36; O2SAT 97; BMI 23.6
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
[2023-12-23] MEDS: 0.9% Normal Saline (1000mL) 1,000 ML 150 ML IV (23:16)
[2023-12-23] MEDS: Meropenem 1 GM in 0.9% Normal Saline (100mL MB+) 100 ML IV (23:35)
[2023-12-23 23:42] VITALS: BP 166/91; PULSE 88; RESP 16; O2SAT 97
[2023-12-24 00:02] LABS: International Normalized Ratio 0.9; Prothrombin Time (Protime)PT. 12.5 SECONDS (11.7-14.9)
[2023-12-24 00:03] LABS: Partial Thromboplast Time 22.2 Seconds (24.1-36.2)
[2023-12-24 00:35] LABS: ALB/GLOB Ratio 0.8 RATIO (0.9-2.4); AST(SGOT) 25 U/L (15-37); Alanine Aminotransfer ALT/SGPT 22 U/L (13-56); Albumin, Serum 3.4 g/dL (3.2-5.0); Alkaline Phosphatase 63 U/L (45-117); Anion Gap 2 (5-15); BUN 14 mg/dL (7-18); BUN/Creat Ratio 21.1 RATIO (10-20); CPK Total, Creatine Kinase 153 U/L (26-192); Calcium,Total 8.4 mg/dL (8.5-10.1); Chloride 110 mmol/L (98-107); Creatinine, Serum 0.66 mg/dL (0.55-1.02); EST Glomerular Filtration Rate 111 mL/min (>60); Est Glom Filt Rate - Afr Amer 134 mL/min (>60); Globulin 4.5 g/dL (2.2-4.2); Glucose 87 mg/dL (74-106); Potassium 3.6 mmol/L (3.5-5.1); Protein, Total 7.9 g/dL (6.4-8.2); Sodium Level 137 mmol/L (136-145)
[2023-12-24 00:41] LABS: Lactic Acid 0.5 mmol/L (0.4-1.9)
[2023-12-24 00:49] LABS: Absolute Lymphocyte Count 2.83 X10^3/uL (0.83-4.51); Absolute Neutrophil Count 3.2 X10^3/uL (2.0-7.7); Basophil# 0.04 X10^3/uL; Basophil% 0.6 % (0-1); Eosinophil# 0.13 X10^3/uL; Eosinophils% 1.9 % (0-5); Hematocrit 36.9 % (37-47); Hemoglobin 12.6 g/dL (12.0-15.0); Lymphocyte # 2.83 X10^3/ul (0.83-4.51); Lymphocyte % 41.6 % (19-41); Mean Corp Hgb Conc 34.1 g/dL (32-36); Mean Corpuscular Hgb 30.5 pg (27.0-32.0); Mean Corpuscular Volume 89.3 fL (81-99); Mean Platelet Vol. 9.3 fl (6.2-12.0); Monocyte# 0.56 X10^3/uL; Monocyte% 8.2 % (0-10); NRBC Flagged by Analyzer 0 % (0-5); Neutrophil # 3.23 X10^3/uL (2.7-7.7); Neutrophil % 47.6 % (47-70); Platelet Count 223 K/mm3 (150-450); RBC Distribution Width CV 13.5 % (11.6-14.6); RBC Distribution Width SD 44.5 fl (35.1-43.9); Red Blood Count 4.13 M/mm3 (4.2-5.4); White Blood Count 6.8 K/mm3 (4.4-11.0)
[2023-12-24 01:19] VITALS: BP 105/65; PULSE 62; RESP 18; TEMP 37; O2SAT 98
[2023-12-24] MEDS: Clindamycin HCl 150 MG Capsule 300 MG PO (01:30)
[2023-12-24 03:04] VITALS: BP 105/65; PULSE 62; RESP 18; TEMP 37; O2SAT 98
== END 2023-12-24 03:06 | disposition home or self-care (01) ==
PROVIDERS: Emergency Provider Emergency Medicine; PCP Internal Medicine; Visit Provider Emergency Medicine
DX: L03.114 Cellulitis of left upper limb (principal); F25.9 Schizoaffective disorder, unspecified; F17.200 Nicotine dependence, unspecified, uncomplicated; T23.201A Burn of second degree of right hand, unspecified site, initial encounter; T23.222A Burn of second degree of single left finger (nail) except thumb, initial encounter; R03.0 Elevated blood-pressure reading, without diagnosis of hypertension; Z87.820 Personal history of traumatic brain injury; X08.8XXA Exposure to other specified smoke, fire and flames, initial encounter; M79.89 Other specified soft tissue disorders
CPT/HCPCS: 73110; 80053; 82550; 83605; 85025; 85610; 85730; 87040; 96374; 99282; J2185; A4216

== ENCOUNTER 2024-02-18 18:52 | Emergency (ER) | payer MEDICARE, MEDICAID, SELFPAY ==
[2024-02-18 18:55] VITALS: BP 118/83; PULSE 79; RESP 18; TEMP 35.8; O2SAT 95; BMI 23.3
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
[2024-02-18 20:58] VITALS: BP 122/89; PULSE 94; RESP 18; TEMP 36.6; O2SAT 99
== END 2024-02-18 21:03 | disposition home or self-care (01) ==
LOC: ED 20:43
PROVIDERS: Emergency Provider Emergency Medicine; PCP Internal Medicine; Visit Provider Emergency Medicine
DX: S63.91XA Sprain of unspecified part of right wrist and hand, initial encounter (principal); R56.9 Unspecified convulsions; T63.444A Toxic effect of venom of bees, undetermined, initial encounter; S63.601A Unspecified sprain of right thumb, initial encounter; W22.03XA Walked into furniture, initial encounter; Z79.899 Other long term (current) drug therapy; F17.210 Nicotine dependence, cigarettes, uncomplicated
CPT/HCPCS: 73130; 99283

== ENCOUNTER 2024-02-19 21:41 | Emergency (ER) | payer MEDICARE, MEDICAID, SELFPAY ==
[2024-02-19 21:41] VITALS: BP 116/83; PULSE 74; RESP 16; TEMP 36.6; O2SAT 94; BMI 23.9
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
[2024-02-19] MEDS: Famotidine 20 MG Tablet 40 MG PO (22:40)
[2024-02-19] MEDS: predniSONE 20 MG Tablet 60 MG PO (22:41)
[2024-02-19] MEDS: DiphenhydrAMINE 25 MG Capsule 50 MG PO (22:41)
== END 2024-02-19 22:55 | disposition home or self-care (01) ==
PROVIDERS: Emergency Provider Emergency Medicine; PCP Internal Medicine; Visit Provider Emergency Medicine
DX: H10.13 Acute atopic conjunctivitis, bilateral (principal); F25.9 Schizoaffective disorder, unspecified; Z79.899 Other long term (current) drug therapy; F17.210 Nicotine dependence, cigarettes, uncomplicated
CPT/HCPCS: 99282

== ENCOUNTER 2024-03-03 20:03 | Emergency (ER) | payer MEDICARE, MEDICAID, SELFPAY ==
[2024-03-03 20:04] VITALS: BP 136/86; PULSE 92; RESP 22; TEMP 36.6; O2SAT 100; BMI 24.0
--- NOTE | 2024-03-03 20:43 | RAD_ITS ---
INDICATION: Right thumb pain EXAMINATION/TECHNIQUE: X-RAY - RIGHT HAND XR Fingers Min 2 Views 3 VIEWS COMPARISON: February 18, 2024 FINDINGS: SOFT TISSUES: No soft tissue swelling or gas. No radiopaque foreign body. BONES/JOINTS: No acute fracture or subluxation.. Normal alignment. Preservation of the joint space.. No sclerotic or destructive changes observed. RAD/Finger(s) Min 2 Views IMPRESSION: Within normal limits examination. Electronically Signed: Anamaria Lopez MD at 21:01 EDT ,
--- NOTE | 2024-03-03 20:59 | EX.ED.UPPERE ---
HPI History of Present Illness Chief Complaint: Upper Extremity Injury Narrative Narrative: Chief complaint and HPI: Right thumb pain. 33-year-old female presents for evaluation of right thumb pain. Patient states a couple weeks ago she stubbed/bumped her right thumb on a counter and then shortly later acquired a bee sting to the same area. She developed pain. On chart review, she was seen in our emergency department at that time and x-ray was performed. She was discharged home with a brace for thumb sprain. Patient states she has been wearing a thumb spica splint intermittently and the pain has not improved. She does have full range of motion of the thumb. Denies any weakness or numbness/tingling in the thumb. Patient states that she has bumped her thumb a couple times since the original injury and wonders if she reinjured it. She denies pain in the hand, wrist, other fingers. Review of systems: See HPI Medications: As listed on the chart Allergies: As listed on the chart PFSH: Per chart Vital signs: As listed on the chart. Reviewed. Physical exam: Gen: A&O x3, NAD CV: Regular rate Resp: Nonlabored respiration Musc: Full ROM of the right thumb, hand, wrist, fingers. Thumb is mildly tender to palpation over the thenar eminence. No ecchymosis, swelling. No obvious signs of trauma. No erythema or signs of cellulitis. Monique test negative. Sensation intact. Radial and ulnar pulse plus 2 out of 4. Normal capillary refill. Skin: Warm, dry Neuro: Alert, oriented, grossly intact, sensation intact Psych: Cooperative, appropriate mood and affect [facility] Medical History IVDU (intravenous drug user) Hypoglycemia Seizures Schizoaffective disorder TBI (traumatic brain injury) Home Medications ?Medication ?Instructions ?Recorded ?Last Taken ?Type clonazepam 1 mg tablet 1 mg PO BID SEIZURES 06/11/17 10/08/18 History buprenorphine HCl 8 mg sublingual 8 mg SL BID 01/20/19 Unknown History tablet cetirizine 10 mg capsule (Zyrtec) 10 mg PO DAILY #14 caps 01/01/21 Unknown Rx citalopram 40 mg tablet (Celexa) 80 mg PO DAILY 01/01/21 Unknown History lamotrigine 200 mg tablet 200 mg PO DAILY 01/01/21 Unknown History (Lamictal) cephalexin 500 mg capsule 500 mg PO Q6 #40 CAPSULES 05/12/22 Unknown Rx doxycycline hyclate 100 mg capsule 100 mg PO BID 7 days #14 caps 05/12/22 Unknown Rx epinastine 0.05 % eye drops 1 drp EACH EYE BID PRN allergic 02/19/24 Unknown Rx symptoms #5 mL fluticasone propionate 50 1 spray intranasal DAILY 02/19/24 Unknown History mcg/actuation nasal spray,suspension prednisone 20 mg tablet 40 mg (2 x 20 mg) PO DAILY 5 days 02/19/24 Unknown Rx #10 tabs Allergy/AdvReac Type Severity Reaction Status Date / Time ampicillin sodium (From Allergy Swelling Verified 03/03/24 20:04 Unasyn) egg Allergy Unknown Verified 03/03/24 20:04 Penicillins Allergy Swelling Verified 03/03/24 20:04 sulbactam sodium (From Allergy Swelling Verified 03/03/24 20:04 Unasyn) red dye AdvReac Nausea Verified 03/03/24 20:04 Surgical History S/P tracheoplasty Social History household members: significant other Smoking Status: Current every day smoker tobacco type: cigarettes alcohol intake: former substance use type: former substance user and opiates EXAM Physical Exam Const Vital Signs: 03/03/24 20:04 Temperature 97.8 F Temperature Source Oral Pulse Rate 92 Respiratory Rate 22 H Blood Pressure 136/86 H Blood Pressure Mean 102 Pulse Ox 100 Oxygen Delivery Method Room Air MDM MDM MDM Narrative Medical decision making narrative: 33-year-old female presents for evaluation of right thumb pain. Patient had an injury several weeks ago and since then has continued to have pain. She has been wearing a wrist splint intermittently but states that it is off more than it is on. Patient states that she thinks she did reinjure it. Differential diagnosis includes but is not limited to strain, contusion, fracture. X-ray of the right thumb obtained. 2 view x-ray of the right thumb was interpreted by me/EM physician no fracture or dislocation. I suspect patient's pain is likely secondary to a right thumb sprain. She was educated that she needs to wear the brace at all times except with showering. She was educated to follow-up with her PCP. Given that this pain has been ongoing for several weeks will refer her to orthopedics. She confirmed understanding of plan. Tylenol Motrin as needed for pain. Patient stable to discharge home impression. Impression: 1. Right thumb sprain Discharge Plan Triage Chief Complaint: Upper Extremity Injury ED Provider: Ced nAn Dx/Rx/DC Orders Clinical Impression: Sprain of right thumb Instructions: Self-Care for Strains and Sprains Prescriptions: No Action clonazepam 1 MG tablet 1 mg PO BID buprenorphine HCl 8 MG tablet, sublingual 8 mg SL BID Rx Instructions: MORNING AND 4PM lamotrigine [Lamictal] 200 mg Tablet 200 mg PO DAILY citalopram [Celexa] 40 mg Tablet 80 mg PO DAILY Zyrtec 10 mg capsule 10 mg PO DAILY Qty: 14 0RF doxycycline hyclate 100 mg capsule 100 mg PO BID 7 Days Qty: 14 0RF cephalexin 500 mg capsule 500 mg PO Q6 Qty: 40 0RF prednisone 20 mg tablet 40 mg PO DAILY 5 Days Qty: 10 0RF epinastine 0.05 % drops 1 drp EACH EYE BID PRN (Reason: allergic symptoms) Qty: 5 0RF fluticasone propionate 50 mcg/actuation spray,suspension 1 spray INTRANASAL DAILY Primary Care Provider: Contreras Preston Referrals: Wilder Lakhani MD [Med Staff - Active Staff] - 3-5 Days Contreras Preston MD [Primary Care Provider] - 3-5 Days Activity Restrictions/Additional Instructions: Continue to wear your splint. Follow-up with orthopedics and your primary care physician. Tylenol Motrin as needed for pain. Print Language: Yi Disposition Disposition: Home, Self Care Discharge Date/Time: 03/03/24 21:45
== END 2024-03-03 21:45 | disposition home or self-care (01) ==
PROVIDERS: Emergency Provider Surgery; PCP Internal Medicine; Visit Provider Surgery
DX: S63.601A Unspecified sprain of right thumb, initial encounter (principal); R56.9 Unspecified convulsions; F17.210 Nicotine dependence, cigarettes, uncomplicated; W22.09XA Striking against other stationary object, initial encounter; Z79.899 Other long term (current) drug therapy
CPT/HCPCS: 73140; 99282

== ENCOUNTER 2024-07-07 16:46 | Emergency (ER) | payer MEDICARE, MEDICAID, SELFPAY ==
[2024-07-07 16:48] VITALS: BP 148/118; PULSE 80; RESP 18; TEMP 36.5; O2SAT 97; BMI 25.4
== END 2024-07-07 21:12 | disposition left against medical advice (07) ==
LOC: ED 21:20
PROVIDERS: PCP Internal Medicine
DX: Z00.00 Encounter for general adult medical examination without abnormal findings (principal)

== ENCOUNTER 2024-07-09 10:47 | Emergency (ER) | payer MEDICARE, MEDICAID, SELFPAY ==
[2024-07-09 10:49] VITALS: BP 122/84; PULSE 83; RESP 16; TEMP 36.6; O2SAT 100; BMI 25.4
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
--- NOTE | 2024-07-09 11:09 | EKG12_ITS ---
Test Reason : Blood Pressure : */* mmHG Vent. Rate : 68 BPM Atrial Rate : 68 BPM P-R Int : 130 ms QRS Dur : 94 ms QT Int : 390 ms P-R-T Axes : 90 66 55 degrees QTcB Int : 414 ms Normal sinus rhythm Normal ECG Confirmed by MARJ WILL, BRITT ([id number]), electronic news gathering editor LUIS F PULIDO ([id number]) on 07/13/2024 8:05:12 AM Referred By: [email or web address] Confirmed By: BRITT MCMAHAN MD
--- NOTE | 2024-07-09 11:10 | RAD_ITS ---
PROCEDURE: CHEST PA AND LATERAL REASON FOR EXAM: Left-sided rib pain. TECHNIQUE: Frontal and lateral views of the chest. COMPARISON: Comparison is made with prior study dated July 01, 2022. FINDINGS: EKG electrodes are seen. The heart size is normal. The mediastinal contour is unremarkable. The lungs are clear. Healed right 5th rib fracture with deformity. RAD/Chest PA and Lateral IMPRESSION: Stable examination. No acute abnormality is seen. Reading Location: [place] [address]
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
[2024-07-09 11:49] LABS: Absolute Lymphocyte Count 1.43 X10^3/uL (0.83-4.51); Absolute Neutrophil Count 3.2 X10^3/uL (2.0-7.7); Basophil# 0.02 X10^3/uL; Basophil% 0.4 % (0-1); Eosinophil# 0.07 X10^3/uL; Eosinophils% 1.4 % (0-5); Hematocrit 41.6 % (37-47); Hemoglobin 14.6 g/dL (12.0-15.0); Lymphocyte # 1.43 X10^3/ul (0.83-4.51); Lymphocyte % 28.1 % (19-41); Mean Corp Hgb Conc 35.1 g/dL (32-36); Mean Corpuscular Hgb 31.5 pg (27.0-32.0); Mean Corpuscular Volume 89.7 fL (81-99); Monocyte# 0.38 X10^3/uL; Monocyte% 7.5 % (0-10); NRBC Flagged by Analyzer 0 % (0-5); Neutrophil # 3.17 X10^3/uL (2.7-7.7); Neutrophil % 62.4 % (47-70); Platelet Count 273 K/mm3 (150-450); RBC Distribution Width CV 12.9 % (11.6-14.6); RBC Distribution Width SD 42.4 fl (35.1-43.9); Red Blood Count 4.64 M/mm3 (4.2-5.4); White Blood Count 5.1 K/mm3 (4.4-11.0)
[2024-07-09 11:59] LABS: Internal QC Validated? YES +Cl - CLEAR BKGD; Pregnancy, Serum, hCG Quali. NEGATIVE Negative
[2024-07-09 12:12] LABS: Anion Gap 4 (5-15); BUN 16 mg/dL (7-18); BUN/Creat Ratio 22.9 RATIO (10-20); Calcium,Total 9.3 mg/dL (8.5-10.1); Chloride 105 mmol/L (98-107); EST Glomerular Filtration Rate 103 mL/min (>60); Est Glom Filt Rate - Afr Amer 125 mL/min (>60); Estimated Creatinine Clearance 97.72 ml/min; Glucose 99 mg/dL (74-106); Potassium 3.8 mmol/L (3.5-5.1); Sodium Level 137 mmol/L (136-145); Troponin-I HS < 3 pg/mL (3.0-54.0)
[2024-07-09 12:44] LABS: D-Dimer Quantitative (DVT/PE) < 0.27 FEU/ug/m (0.27-0.49)
[2024-07-09 13:32] VITALS: BP 111/88; PULSE 81; RESP 16; TEMP 36.6; O2SAT 99
== END 2024-07-09 13:34 | disposition home or self-care (01) ==
PROVIDERS: Emergency Provider Emergency Medicine; PCP Internal Medicine; Visit Provider Emergency Medicine
DX: R07.81 Pleurodynia (principal); R56.9 Unspecified convulsions; R09.1 Pleurisy; F17.210 Nicotine dependence, cigarettes, uncomplicated; Z79.899 Other long term (current) drug therapy
CPT/HCPCS: 71046; 80048; 84484; 84703; 85025; 85379; 93005; 99283; A4216